=== PATIENT | female | born 1960 | race Caucasian/White ===

== ENCOUNTER 2017-01-11 05:54 | Emergency (ER) | payer MEDICARE, MEDICAID ==
[2017-01-11] MEDS ORDERED: MORPHINE SULFATE 10 MG/ML INJ IV ONE ×2 (09:34→12:17)
[2017-01-11] MEDS ORDERED: KETOROLAC TROMETHAMINE INJ/PF 30 MG/1 ML SDV IV ONE (09:34)
[2017-01-11] MEDS ORDERED: ONDANSETRON HCL INJ/PF 4 MG/2 ML SDV IV ONE (09:34)
[2017-01-11] MEDS ORDERED: NORMAL SALINE 1000 ML 1,000 ML IV ONE ×2 (09:35→12:17)
--- NOTE | 2017-01-11 09:40 | ER Document Report ---
ED Respiratory Problem - General Chief Complaint: Productive Cough Stated Complaint: DIFFICULT BREATHING, PAIN IN RIGHT SIDE Time seen by provider: 09:38 Mode of Arrival: Medic Information source: Patient Notes: 56-year-old female came in by rescue squad because of right flank pain that radiates all the way up to her neck due to coughing that has been productive and green for 2 days. Cough started one month ago. The pain is worse with movement and coughing. No dysuria. No vomiting or diarrhea. She has a history of chronic back pain and abdominal hernia. 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 TRAVEL OUTSIDE OF THE [place] IN LAST 30 DAYS: No - Related Data Allergies/Adverse Reactions: Cephalosporins Allergy (Verified 01/11/17 06:03) Hives ciprofloxacin [Ciprofloxacin] Allergy (Verified 01/11/17 06:03) clindamycin [Clindamycin] Allergy (Verified 01/11/17 06:03) Hives clindamycin HCl [From Cleocin] Allergy (Verified 01/11/17 06:03) Hives clindamycin palmitate HCl [From Cleocin] Allergy (Verified 01/11/17 06:03) Hives clindamycin phosphate [From Cleocin] Allergy (Verified 01/11/17 06:03) Hives Penicillins Allergy (Verified 01/11/17 06:03) Hives Past Medical History - General Information source: Patient - Social History Smoking Status: Never Smoker Chew tobacco use (# tins/day): No Frequency of alcohol use: Rare Drug Abuse: None Lives with: Family Family History: CAD Patient has suicidal ideation: No Patient has homicidal ideation: No - Past Medical History Cardiac Medical History: Reports: Hx Hypercholesterolemia, Hx Hypertension Pulmonary Medical History: Reports: Hx Asthma Endocrine Medical History: Reports: Hx Diabetes Mellitus Type 2 Renal/ Medical History: Denies: Hx Peritoneal Dialysis Musculoskeltal Medical History: Reports Hx Arthritis Psychiatric Medical History: Reports: Hx Depression Past Surgical History: Reports: Hx Appendectomy, Hx Cholecystectomy, Hx Hysterectomy, Hx Orthopedic Surgery - back x 15 times, Hx Tonsillectomy - Immunizations Hx Diphtheria, Pertussis, Tetanus Vaccination: No - unsure Hx Pneumococcal Vaccination: 10/22/12 Review of Systems - Review of Systems Constitutional: No symptoms reported EENT: No symptoms reported Cardiovascular: No symptoms reported Respiratory: See HPI Gastrointestinal: No symptoms reported Genitourinary: No symptoms reported Female Genitourinary: No symptoms reported Musculoskeletal: See HPI Skin: No symptoms reported Hematologic/Lymphatic: No symptoms reported Neurological/Psychological: No symptoms reported Physical Exam - Vital signs Vitals: Temp Pulse Resp BP Pulse Ox 98.4 F 101 H 20 132/82 H 99 01/11/17 06:08 01/11/17 06:08 01/11/17 06:08 01/11/17 06:08 01/11/17 06:08 Interpretation: Normal - Notes Notes: Obese and disheveled - General General appearance: Alert, Anxious - HEENT Head: Normocephalic, Atraumatic Eyes: Normal Conjunctiva: Normal Pupils: PERRL Mucous membranes: Dry Neck: Supple - Tender right trapezius - Respiratory Respiratory status: No respiratory distress Chest status: Nontender Breath sounds: Normal Chest palpation: Normal Notes: Shallow but clear respiratory - Cardiovascular Rhythm: Regular Heart sounds: Normal auscultation Murmur: No - Abdominal Inspection: Normal Distension: No distension Bowel sounds: Normal Tenderness: Nontender. No: Tender Organomegaly: No organomegaly - Back Back: Normal, Tender - 8 Thoracic and lumbar back - Extremities General upper extremity: Normal inspection, Nontender, Normal color, Normal ROM , Normal temperature General lower extremity: Normal inspection, Nontender, Normal color, Normal ROM , Normal temperature, Normal weight bearing. No: Marisol's sign - Neurological Neuro grossly intact: Yes Cognition: Normal Orientation: AAOx4 Sandy Coma Scale Eye Opening: Spontaneous [place] Coma Scale Verbal: Oriented [place] Coma Scale Motor: Obeys Commands Sandy Coma Scale Total: 15 Speech: Normal Motor strength normal: LUE, RUE, LLE, RLE Sensory: Normal - Psychological Associated symptoms: Normal affect, Normal mood - Skin Skin Temperature: Warm Skin Moisture: Dry Skin Color: Normal Skin irregularity: negative: Rash Course - Re-evaluation Re-evalutation: 01/11/17 11:16 Atelectasis or early pneumonia in the right lower lobe per radiologist. 01/11/17 12:17 pt is daibetic but not on insulin, Dr. Bah had told her that she manages her insulin glucose was 256 and I will recheck an Accu-Chek after the saline is done. 01/11/17 12:55 pt is drdamatic in her presentation of the pain, the 2nd dose of morphine did not help, "the breathing tx stirred it up", will order CTA due to the lulyin alex , she also has tachypnea, but believe it is due to pain., holding lower right naterior chest wall 01/11/17 13:[address] Toth for CTA 01/11/17 14:12 Patient got hysterical complaining of pain stating her said she would not be able to come home because she is crying and screaming. He left. I had to give her Ativan and 2 mg of Dilaudid to get her to calm in order to get CT scan. She is holding her right upper quadrant although she's had a cholecystectomy I'll will add an a CT of the abdomen and pelvis due to pain 01/11/17 15:41 lct no PE, rll pneumonia with effusion, abd ct diverticula that are not inflamed and fatty liver. 01/11/17 15:[address] bah so she can f/u tomorrow with him - Vital Signs Vital signs: Temp Pulse Resp BP Pulse Ox 97.9 F 96 20 129/82 H 95 01/11/17 15:39 01/11/17 15:39 01/11/17 15:39 01/11/17 15:39 01/11/17 15:39 - Laboratory Result Diagrams: 01/11/17 11:00 01/11/17 11:00 Laboratory results interpreted by me: 01/11/17 01/11/17 01/11/17 11:00 11:00 12:02 WBC 13.1 H RDW 14.4 H Absolute Neutrophils 9.1 H Chloride 97 L Glucose 268 H POC Glucose Total Bilirubin 1.7 H Direct Bilirubin 0.5 H Urine Protein 100 H Urine Glucose (UA) >=500 H Urine Ketones TRACE H Ur Leukocyte Esterase MODERATE H 01/11/17 01/11/17 12:31 14:41 WBC RDW Absolute Neutrophils Chloride Glucose POC Glucose 281 H 263 H Total Bilirubin Direct Bilirubin Urine Protein Urine Glucose (UA) Urine Ketones Ur Leukocyte Esterase Discharge - Discharge Clinical Impression: right lower pneumonia, urinary tract infection, uncontrolled diabetes, hyperglycemia, Anxiety Condition: Good Disposition: HOME, SELF-CARE Instructions: Pneumonia ([facility]), Azithromycin ([facility]), Urinary Tract Infection ([facility] ), Trimethoprim-Sulfa ([facility]), Inhaled Bronchodilators ([facility]) Additional Instructions: drink plenty of fwater daily take your jeneuvia when you get home Return to the emergency room if worse see dr. bah tomorrow for recheck use the albuterol MDI with the aerochamber 2 puffs every 3 hours for cough Please complete the patient satisfaction survey if you get one, and return it.. If you do not receive a survey, then you can go to the [facility] website, [email or web address] and place your comments about your very good care. Thank you very much. It was a pleasure being your medical provider today. Prescriptions: Azithromycin [Zithromax] 250 mg PO DAILY #4 tablet Sulfamethoxazole/Trimethoprim [Septra-Ds 800-160 mg Tablet] 1 tab PO BID #14 tablet Referrals: JC BAH MD [Primary Care Provider] - Follow up tomorrow
[2017-01-11 11:12] LABS: ABSOLUTE BASOPHILS # (AUTO) 0.1 10^3/uL (0.0-0.2); ABSOLUTE EOSINOPHILS # (AUTO) 0.2 10^3/uL (0.0-0.6); ABSOLUTE LYMPHOCYTES (AUTO) 2.7 10^3/uL (0.5-4.7); ABSOLUTE NEUT (AUTO) 9.1 10^3/uL (1.7-8.2); BASOPHILS % (AUTO) 0.7 % (0-2); EOSINOPHILS % (AUTO) 1.5 % (0-6); HEMATOCRIT 36.4 % (36.0-47.0); HEMOGLOBIN 12.2 g/dL (12.0-15.5); HGB HCT DIFFERENCE 0.2; LYMPHOCYTES % (AUTO) 20.3 % (13-45); MEAN CORPUSCULAR HEMOGLOBIN 28.4 pg (27.0-33.4); MEAN CORPUSCULAR HGB CONC 33.5 g/dL (32.0-36.0); MEAN CORPUSCULAR VOLUME 85 fl (80-97); MONOCYTES % (AUTO) 7.7 % (3-13); RED BLOOD COUNT 4.29 10^6/uL (3.72-5.28); RED CELL DISTRIBUTION WIDTH 14.4 % (11.5-14.0); SEGMENTED NEUTROPHILS % (AUTO) 69.8 % (42-78); WHITE BLOOD COUNT 13.1 10^3/uL (4.0-10.5)
[2017-01-11] MEDS ORDERED: AZITHROMYCIN 250 MG TABLET PO ONE (11:15)
[2017-01-11 11:31] LABS: ALANINE AMINOTRANSFERASE 30 U/L (9-52); ALBUMIN 3.7 g/dL (3.5-5.0); ALKALINE PHOSPHATASE 104 U/L (38-126); ANION GAP 17 (5-19); ASPARTATE AMINO TRANSFERASE 15 U/L (14-36); BILIRUBIN,DIRECT 0.5 mg/dL (0.0-0.4); BILIRUBIN,TOTAL 1.7 mg/dL (0.2-1.3); BLOOD UREA NITROGEN 13 mg/dL (7-20); CALCIUM 9.5 mg/dL (8.4-10.2); CARBON DIOXIDE 26 mmol/L (22-30); CHLORIDE 97 mmol/L (98-107); CREATININE RESULT 0.78 mg/dL (0.52-1.25); GLUCOSE 268 mg/dL (75-110); POTASSIUM 3.9 mmol/L (3.6-5.0); SODIUM 140.3 mmol/L (137-145); TOTAL PROTEIN 7.3 g/dL (6.3-8.2)
[2017-01-11] MEDS ORDERED: IPRATROPIUM/ALBUTEROL 0.5-2.5 MG/3 ML AMPUL NEB ONE (12:12)
[2017-01-11 12:25] LABS: APPEARANCE,URINE CLOUDY; BILIRUBIN,URINE NEGATIVE (NEGATIVE); GLUCOSE, URINE >=500 mg/dL (NEGATIVE); KETONES,URINE TRACE mg/dL (NEGATIVE); LEUKOCYTE ESTERASE,URINE MODERATE (NEGATIVE); NITRITE,URINE NEGATIVE (NEGATIVE); PROTEIN,URINE 100 mg/dL (NEGATIVE); UROBILINOGEN,URINE NEGATIVE mg/dL (<2.0)
[2017-01-11] MEDS ORDERED: HYDROMORPHONE HCL INJ/PF 2 MG/ML AMPULE IV ONE ×2 (12:56→14:11)
[2017-01-11] MEDS ORDERED: LORAZEPAM INJ 2 MG/1 ML VIAL ONE (14:01)
[2017-01-11] MEDS ORDERED: HYDROMORPHONE HCL INJ/PF 2 MG/ML AMPULE ONE (14:02)
[2017-01-11] MEDS ORDERED: LORAZEPAM INJ 2 MG/1 ML VIAL IV ONE (14:11)
[2017-01-11] MEDS ORDERED: SULFAMETHOXAZOLE/TRIMETHOPRIM 800-160 MG TABLET PO ONE (15:24)
[2017-01-11] MEDS ORDERED: ALBUTEROL SULFATE HFA (90 MCG/PUFF) 8 GM MDI (1 MDI/ER DISP) IH PRN (15:38)
[2017-01-11 15:40] VITALS: BP 129/82
== END 2017-01-11 16:00 | disposition home or self-care (01) ==
LOC: ER 05:54
DX: J18.9 Pneumonia, unspecified organism (principal); N39.0 Urinary tract infection, site not specified; E11.65 Type 2 diabetes mellitus with hyperglycemia; F41.9 Anxiety disorder, unspecified; R06.82 Tachypnea, not elsewhere classified; R10.9 Unspecified abdominal pain; R05 Cough; K76.0 Fatty (change of) liver, not elsewhere classified; K57.30 Diverticulosis of large intestine without perforation or abscess without bleeding; I10 Essential (primary) hypertension; J45.909 Unspecified asthma, uncomplicated; E66.9 Obesity, unspecified; Z68.39 Body mass index [BMI] 39.0-39.9, adult; Z88.1 Allergy status to other antibiotic agents; Z88.0 Allergy status to penicillin; Z90.49 Acquired absence of other specified parts of digestive tract; Z90.710 Acquired absence of both cervix and uterus
CPT/HCPCS: 96376; 94640; 99284; 96361; 96374; 96375; 36415; 87086; 82962; 85025; 87088; 80053; 81001; 87186; 71020; 71275; 74177; A9270 ×3; J1885; J2270; J1170; J2060; J2405; J7030; J3490; J7620

== ENCOUNTER 2017-01-14 01:10 | Inpatient (IN) | payer MEDICARE, MEDICAID ==
--- NOTE | 2017-01-14 02:18 | ER Document Report ---
ED General - General Chief Complaint: Altered Mental Status Stated Complaint: POSSIBLE ALTERED MENTAL STATUS Mode of Arrival: Ambulatory Information source: Patient, Relative Notes: This is a 56-year-old female who presents for possible confusion. Of note she was seen in the ER 3 days ago and diagnosed with a right lower lobe pneumonia. She states she has been compliant with her outpatient antibiotics and that her cough has improved. She has had no fevers or chills. However she states that yesterday her family found her asleep on the floor and she thinks she might have fallen down. Tonight she states that she's been talking fast and has been a little bit confused although right now she states that she is feeling fine. She continues to have the right-sided pleuritic pain when she coughs which she has had since being diagnosed with the right lower lobe pneumonia 3 days ago. TRAVEL OUTSIDE OF THE [place] IN LAST 30 DAYS: No - Related Data Allergies/Adverse Reactions: Cephalosporins Allergy (Verified 01/11/17 06:03) Hives ciprofloxacin [Ciprofloxacin] Allergy (Verified 01/11/17 06:03) clindamycin [Clindamycin] Allergy (Verified 01/11/17 06:03) Hives clindamycin HCl [From Cleocin] Allergy (Verified 01/11/17 06:03) Hives clindamycin palmitate HCl [From Cleocin] Allergy (Verified 01/11/17 06:03) Hives clindamycin phosphate [From Cleocin] Allergy (Verified 01/11/17 06:03) Hives Penicillins Allergy (Verified 01/11/17 06:03) Hives Past Medical History - General Information source: Patient, [facility] Records - Social History Smoking Status: Never Smoker Chew tobacco use (# tins/day): No Frequency of alcohol use: None Drug Abuse: None Family History: CAD Patient has suicidal ideation: No Patient has homicidal ideation: No - Past Medical History Cardiac Medical History: Reports: Hx Hypercholesterolemia, Hx Hypertension Pulmonary Medical History: Reports: Hx Asthma Endocrine Medical History: Reports: Hx Diabetes Mellitus Type 2 Renal/ Medical History: Denies: Hx Peritoneal Dialysis Musculoskeltal Medical History: Reports Hx Arthritis Psychiatric Medical History: Reports: Hx Depression Past Surgical History: Reports: Hx Appendectomy, Hx Cholecystectomy, Hx Hysterectomy, Hx Orthopedic Surgery - back x 15 times, Hx Tonsillectomy - Immunizations Hx Diphtheria, Pertussis, Tetanus Vaccination: No - unsure Hx Pneumococcal Vaccination: 10/22/12 Review of Systems - Review of Systems Constitutional: denies: Chills, Fever EENT: No symptoms reported Cardiovascular: See HPI Respiratory: See HPI, Cough, Hurts to breathe. denies: Hemoptysis, Short of breath Gastrointestinal: No symptoms reported. denies: Abdominal pain, Vomiting Musculoskeletal: No symptoms reported Skin: No symptoms reported Hematologic/Lymphatic: No symptoms reported Neurological/Psychological: See HPI, Confusion. denies: Weakness, Headaches Physical Exam - Vital signs Vitals: Temp Pulse Resp BP Pulse Ox 98.3 F 119 H 18 107/59 L 92 01/14/17 01:20 01/14/17 01:20 01/14/17 01:20 01/14/17 01:20 01/14/17 01:20 - Notes Notes: PHYSICAL EXAMINATION: GENERAL: Well-appearing, obese adult female who is speaking very quickly and in no acute distress. HEAD: Atraumatic, normocephalic. EYES: Pupils equal round and reactive to light, extraocular movements intact, sclera anicteric, conjunctiva are normal. ENT: nares patent, oropharynx clear without exudates. Moist mucous membranes. NECK: Normal range of motion, supple without lymphadenopathy LUNGS: decreased breath sounds R base. No wheezes, rales, or rhonchi HEART: Regular rate and rhythm without murmurs ABDOMEN: Soft, nontender, normoactive bowel sounds. No guarding, no rebound. No masses appreciated. EXTREMITIES: Normal range of motion, no edema NEUROLOGICAL: Alert and oriented 4. Cranial nerves grossly intact. Normal speech. Motor strength +5/5 bilateral upper and lower extremities. Sensation intact. PSYCH: Normal mood, somewhat anxious affect SKIN: Warm, Dry, normal turgor, no rashes or lesions noted. Course - Re-evaluation Re-evalutation: 01/14/17 05:02 Patient's chest x-ray demonstrates significant worsening of her right-sided pneumonia as compared to 3 days ago. Also she is in acute renal failure. Patient is being treated with IV antibiotics and will be admitted to the hospitalist, Dr. Acosta, this morning. - Vital Signs Vital signs: Temp Pulse Resp BP Pulse Ox 98.3 F 119 H 24 H 101/83 90 L 01/14/17 01:20 01/14/17 01:20 01/14/17 03:01 01/14/17 03:01 01/14/17 03:21 - Laboratory Result Diagrams: 01/14/17 02:35 01/14/17 02:35 Laboratory results interpreted by me: 01/14/17 01/14/17 01/14/17 02:35 02:35 02:35 WBC 16.2 H Hgb 10.7 L Hct 32.2 L RDW 14.5 H Absolute Neutrophils 11.6 H Sodium 134.1 L Chloride 91 L BUN 28 H Creatinine 2.60 H Est GFR ( Amer) 23 L Est GFR (Non-Af Amer) 19 L Glucose 230 H Lactic Acid 2.7 H Direct Bilirubin 0.7 H Alkaline Phosphatase 133 H Creatine Kinase 225 H Albumin 3.2 L Urine Protein Urine Glucose (UA) Urine Blood Ur Leukocyte Esterase 01/14/17 03:50 WBC Hgb Hct RDW Absolute Neutrophils Sodium Chloride BUN Creatinine Est GFR ( Amer) Est GFR (Non-Af Amer) Glucose Lactic Acid Direct Bilirubin Alkaline Phosphatase Creatine Kinase Albumin Urine Protein 30 H Urine Glucose (UA) 150 H Urine Blood SMALL H Ur Leukocyte Esterase SMALL H Discharge - Discharge Clinical Impression: Right lower lobe pneumonia Qualifiers: Pneumonia type: due to unspecified organism Qualified Code(s): J18.1 - Lobar pneumonia, unspecified organism Acute renal failure (ARF) Qualifiers: Acute renal failure type: unspecified Qualified Code(s): N17.9 - Acute kidney failure, unspecified UTI (urinary tract infection) Qualifiers: Urinary tract infection type: site unspecified Hematuria presence: without hematuria Qualified Code(s): N39.0 - Urinary tract infection, site not specified Condition: Fair Admitting Provider: Hospitalist - Dr. Acosta Unit Admitted: [facility]
[2017-01-14] MEDS ORDERED: NORMAL SALINE 1000 ML 1,000 ML IV ONE (02:20)
[2017-01-14 02:51] LABS: VENOUS BLOOD BASE EXCESS 1.3 mmol/L; VENOUS BLOOD HCO3 28.9 mmol/L (20-32); VENOUS BLOOD PCO2 58.9 mmHg (35-63); VENOUS BLOOD PH 7.31 (7.30-7.42)
[2017-01-14 02:52] LABS: ABSOLUTE BASOPHILS # (AUTO) 0.1 10^3/uL (0.0-0.2); ABSOLUTE EOSINOPHILS # (AUTO) 0.5 10^3/uL (0.0-0.6); ABSOLUTE LYMPHOCYTES (AUTO) 2.8 10^3/uL (0.5-4.7); ABSOLUTE MONOCYTES (AUTO) 1.2 10^3/uL (0.1-1.4); ABSOLUTE NEUT (AUTO) 11.6 10^3/uL (1.7-8.2); BASOPHILS % (AUTO) 0.5 % (0-2); HEMATOCRIT 32.2 % (36.0-47.0); HEMOGLOBIN 10.7 g/dL (12.0-15.5); HGB HCT DIFFERENCE -0.1; LYMPHOCYTES % (AUTO) 17.3 % (13-45); MEAN CORPUSCULAR HEMOGLOBIN 28.2 pg (27.0-33.4); MEAN CORPUSCULAR HGB CONC 33.2 g/dL (32.0-36.0); MEAN CORPUSCULAR VOLUME 85 fl (80-97); MONOCYTES % (AUTO) 7.1 % (3-13); RED BLOOD COUNT 3.78 10^6/uL (3.72-5.28); RED CELL DISTRIBUTION WIDTH 14.5 % (11.5-14.0); SEGMENTED NEUTROPHILS % (AUTO) 72.1 % (42-78); WHITE BLOOD COUNT 16.2 10^3/uL (4.0-10.5)
[2017-01-14 03:04] LABS: ALANINE AMINOTRANSFERASE 19 U/L (9-52); ALBUMIN 3.2 g/dL (3.5-5.0); ALKALINE PHOSPHATASE 133 U/L (38-126); ANION GAP 17 (5-19); ASPARTATE AMINO TRANSFERASE 19 U/L (14-36); BILIRUBIN,DIRECT 0.7 mg/dL (0.0-0.4); BLOOD UREA NITROGEN 28 mg/dL (7-20); CALCIUM 8.8 mg/dL (8.4-10.2); CARBON DIOXIDE 26 mmol/L (22-30); CHLORIDE 91 mmol/L (98-107); CREATINE KINASE 225 U/L (30-135); GLUCOSE 230 mg/dL (75-110); POTASSIUM 4.1 mmol/L (3.6-5.0); SODIUM 134.1 mmol/L (137-145); TOTAL PROTEIN 6.5 g/dL (6.3-8.2)
[2017-01-14 03:06] LABS: ALCOHOL < 10 mg/dL (NONE DETECTED)
[2017-01-14] MEDS ORDERED: LEVOFLOXACIN 750 MG/D5W RTU 150 ML IV ONE (03:20)
[2017-01-14] MEDS ORDERED: VANCOMYCIN HCL INJ 1000 MG VIAL IV ONE (03:32)
[2017-01-14 04:17] LABS: APPEARANCE,URINE CLOUDY; BILIRUBIN,URINE NEGATIVE (NEGATIVE); GLUCOSE, URINE 150 mg/dL (NEGATIVE); KETONES,URINE NEGATIVE (NEGATIVE); LEUKOCYTE ESTERASE,URINE SMALL (NEGATIVE); NITRITE,URINE NEGATIVE (NEGATIVE); PROTEIN,URINE 30 mg/dL (NEGATIVE); URINE SPECIFIC GRAVITY 1.013; UROBILINOGEN,URINE NEGATIVE mg/dL (<2.0)
[2017-01-14] MEDS ORDERED: DEXTROSE 40% GEL 15 GM TUBE PO PRN ×2 (04:54)
[2017-01-14] MEDS ORDERED: DEXTROSE 50%-WATER 25 GM/50 ML DISP.SYRIN IV PRN ×2 (04:54)
[2017-01-14] MEDS ORDERED: GLUCAGON,HUMAN RECOMB 1 MG INJ IM PRN (04:54)
[2017-01-14] MEDS ORDERED: GUAIFENESIN SYRP 200 MG/10 ML UDC PO PRN (04:55)
[2017-01-14 04:57] LABS: ADD ON TESTING BLD IN LAB ACKNOWLEDGE
[2017-01-14] MEDS ORDERED: VANCOMYCIN HCL 0 MG in DEXTROSE 5%-WATER 250 ML IV NR (05:00)
[2017-01-14] MEDS ORDERED: PHARMACY COMMUNICATION ORDER MC NR ×2 (05:00→13:00)
[2017-01-14 05:06] LABS: MAGNESIUM 1.9 mg/dL (1.6-2.3)
--- NOTE | 2017-01-14 05:07 | PDOC H&P ---
History of Present Illness Admission Date/PCP: 01/14/17 04:15 JC BAH MD Patient complains of: altered mental status History of Present Illness: ARIANNA DESOUZA is a 56 year old Caucasion female, with underlying chronic back pain, chronic mild anxiety and depression, without suicidal or homicidal ideation, hypertension, type II diabetes mellitus, easy bruising, and frequent urinary tract infections, but without known chronic kidney disease or chronic pulmonary disease, who presents to the emergency room for the second time in approximate 4 days, this time for evaluation of above complaint. Was seen on the and diagnosed with combination urinary tract infection and right sided pneumonia. Discharged on Z-Kostas and Bactrim. States she's been taking this as prescribed. She's had no fever or chills. However, family found her asleep on the floor on the , and noted her to be somewhat confused, along with talking faster than usual. She denies head trauma. Thinks she just simply slumped to the floor. Dry cough, which causes prominent chest wall pain. Otherwise, no chest pain. She's had some mild dysuria. No diarrhea. No tobacco use. Granddaughter has had a recent cold. She is up-to-date with flu vaccination, but doesn't think she's had her Pneumovax. States she frequently gets pneumonia with an upper respiratory tract infection "if not treated right away." No prior intubation for respiratory difficulty. Patient has been discussed with emergency room physician who evaluated the patient. . Laboratory results are listed in [employer] and are reviewed, including urine culture result from the . X-ray summary results are listed below, with full report(s) reviewed. . EKG reviewed. And compared to a tracing from November 10 of this year. Social history/personal habits: . 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 disabled due to chronic back pain; states she' s had "15" back surgeries. No use of tobacco alcohol or illicit drugs. Allergies/adverse reactions NKDA. Home medications Home medications initially autopopulated into [facility] may not accurately reflect patient's true medications, dosages, and/or frequencies. Unfortunately, patient uncertain of medications/dosages/frequencies. REVIEW OF SYSTEMS: Constitutional: No fever or chills. Eyes: Wears glasses. ENT: No swallowing problems or complaints. Partial hearing loss. Pulmonary: See history and present illness. Cardiovascular: See history and present illness. Gastrointestinal: No current complaints, including nausea or vomiting. Skin: No current complaints, including rashes. Hematologic: Easy bruising. Neurologic: Chronic numbness and tingling of her feet, due to diabetic peripheral neuropathy Musculoskeletal: Chronic back pain Joint pain from arthritis. Psychiatric: Mild Anxiety depression; denies suicidal or homicidal ideation. Endocrine: No current complaints, including polyuria. Genitourinary: See history and present illness. 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 5 feet 7 inches tall. 113 kg. BMI 39 kg/m. Temperature 98.3. Blood pressure 116/91. 93% saturation on 2 L oxygen per nasal cannula. Respirations are 21 and unlabored. Obese somewhat chronically ill-appearing female who nevertheless appears approximately her stated age. Appears not to feel very well. Somewhat anxious, although no riki agitation. Pleasant awake alert and cooperative. Skin is warm and dry. No grossly obvious evidence of rash in areas of skin examined. No subcutaneous nodules palpated. ENT: Hearing grossly normal to normal conversation. Tongue midline on protrusion pink and slightly tacky. Palpation of cranium fails to reveal any obvious tenderness. Eyes: No scleral icterus. Pupils equal and reactive to light at 4 mm. [place] conjunctivae. No raccoon eyes Neck is supple and nontender to gentle active range of motion and palpation. Midline trachea. No palpable thyroid nodule mass enlargement or tenderness. Lymphatic: No palpable cervical or clavicular nodes. Neck and lymphatic exams limited by patient body habitus. Psychiatric: Reasonable insight into acute and chronic medical issues. Oriented to time location and why here. Lungs: Auscultation reveals clear breath sounds bilaterally. No use of accessory respiratory muscles. Perhaps slightly decreased breath sounds, right lower chest. Cardiovascular: Heart regular rate and rhythm, without gallop murmur or rub. No carotid or abdominal aortic bruits. No ankle or pedal edema. palpable dorsalis pedis pulses. Abdomen: soft, obese, nontender with positive bowel sounds. Unable to adequately evaluate abdomen for masses or organomegaly due to body habitus. Extremities: Feet are warm and dry. No calf tenderness to compression. No grossly obvious visual evidence of calf swelling. Gentle manipulation of lower extremities fails to reveal any obvious evidence of injury or instability to knees hips or ankles. Neurologic: Moves upper extremities grossly normally. Patellar reflexes absent. Absent Babinski. Light touch decreased at feet, a chronic finding according to patient. Dorsiflexion and plantarflexion of feet 5 / 5 and symmetric. Past Medical History Cardiac Medical History: Reports: Hypertension Denies: Congestive Heart Failure, DVT, Myocardial Infarction, Hyperlipidema, Pulmonary Embolism Pulmonary Medical History: Reports: Sleep Apnea - Possible sleep apnea, but no formal testing as of yet. Denies: Asthma, Chronic Obstructive Pulmonary Disease (COPD) EENT Medical History: Reports: Eyes - Wears glasses, Ears - Partial hearing loss Denies: Throat Neurological Medical History: Reports: Other - Chronic numbness and tingling of her feet secondary to diabetic neuropathy Denies: Hemorrhagic CVA, Ischemic CVA, Seizures Endocrine Medical History: Reports: Diabetes Mellitus Type 2 Denies: Diabetes Mellitus Type 1, Hyperthyroidism, Hypothyroidism Renal/ Medical History: Reports: Chronic Kidney Disease - Decreased kidney function according to labs, 2013 through early 2015., Other - Frequent urinary tract infections. GI Medical History: Denies: Cirrhosis, Gastroesophageal Reflux Disease, Hepatitis, Peptic Ulcer Disease Musculoskeltal Medical History: Reports: Arthritis, Other - Chronic back pain Skin Medical History: Reports: None Psychiatric Medical History: Reports: Depression, General Anxiety Disorder Denies: Alcohol Dependency, Substance Abuse, Tobacco Dependency Hematology: Reports: Other - Easy bruising Denies: Anemia Infectious Medical History: Denies: Clostridium Difficile, Hepatitis B, Hepatitis C, Methicillin- Resistant Staph Aureus Past Surgical History Past Surgical History: Reports: Appendectomy, Cholecystectomy, Hysterectomy, Orthopedic Surgery - back x 15 times, Tonsillectomy Social History Information Source: Patient, Emergency Med Personnel, [facility] Records Lives with: Spouse/Significant other Smoking Status: Never Smoker Frequency of Alcohol Use: None Drugs: None - Advance Directive Resuscitation Status: Full Code Surrogate healthcare decision maker:: Children Family History Family History: CAD, Hypertension, Other - Parkinson's Parental Family History Reviewed: Yes Children Family History Reviewed: Yes Sibling(s) Family History Reviewed.: Yes Medication/Allergy Home Medications: Buprenorphine [Butrans] 1 patch TD MO 01/14/17 Diazepam [Valium 5 mg Tablet] 5 mg PO BID PRN 01/14/17 Duloxetine HCl [Cymbalta] 60 mg PO DAILY 01/14/17 Furosemide [Lasix] 20 mg PO PRN PRN 01/14/17 Lubiprostone [Amitiza 24 Mcg Capsule] 24 mcg PO BID 01/14/17 RX: Enalapril/Hydrochlorothiazide [Vaseretic 10-25 mg Tablet] 1 tab PO DAILY RX: Gabapentin 300 mg PO TID 01/14/17 RX: Naproxen 500 mg PO Q12 PRN 01/14/17 RX: Omeprazole 20 mg PO DAILY 01/14/17 Ropinirole HCl [Requip Xl] 2 mg PO BID 01/14/17 Sitagliptin Phosphate [Januvia] 100 mg PO DAILY 01/14/17 Tizanidine HCl [Zanaflex 4 mg Tablet] 4 mg PO TIDP PRN 01/14/17 Zolpidem Tartrate [Ambien] 10 mg PO QHS 01/14/17 Allergies/Adverse Reactions: Cephalosporins Allergy (Verified 01/11/17 06:03) Hives ciprofloxacin [Ciprofloxacin] Allergy (Verified 01/11/17 06:03) clindamycin [Clindamycin] Allergy (Verified 01/11/17 06:03) Hives Penicillins Allergy (Verified 01/11/17 06:03) Hives Physical Exam Vital Signs: Temp Pulse Resp BP Pulse Ox 98.3 F 119 H 24 H 101/83 90 L 01/14/17 01:20 01/14/17 01:20 01/14/17 03:01 01/14/17 03:01 01/14/17 03:21 Results Impressions: Chest X-Ray 01/14/17 01:58 IMPRESSION: Interval increase in the right-sided pleural effusion and airspace opacity in the right lung, may represent worsening atelectasis or pneumonia. Mild left basilar atelectasis. Assessment & Plan - Diagnosis (1) Acute encephalopathy Is this a current diagnosis for this admission?: YesPlan: Likely multifactorial, but primarily due to underlying infection. Should clear with time and treatment. (2) Acute renal failure (ARF) Qualifiers: Acute renal failure type: unspecified Qualified Code(s): N17.9 - Acute kidney failure, unspecified Is this a current diagnosis for this admission?: YesPlan: Likely prerenal, with patient describing little by mouth intake over the last 2- 3 days. Renal ultrasound. IV fluid. Serial chemistry. (3) Pneumonia involving right lung Qualifiers: Pneumonia type: due to unspecified organism Lung location: unspecified part of lung Qualified Code(s): J18.9 - Pneumonia, unspecified organism Is this a current diagnosis for this admission?: YesPlan: Patient will be admitted under pneumonia protocol. Incentive spirometry twice a day. PRN DuoNeb's. Antibiotics will consist of intravenous Zithromax, vancomycin, and aztreonam. Pharmacy to assist with dosing.. I strongly encouraged patient to notify staff should patient feel shortness of breath is worsening. Patient is a full code. I have strongly encouraged patient not to get out of bed without notifying staff , to avoid a fall with injury. Knee high SCDs for DVT prophylaxis, along with subcutaneous heparin. Impression and plans were discussed with patient, who concurs. Time spent in evaluation and management of patient: 68 minutes. (4) UTI (urinary tract infection) Qualifiers: Urinary tract infection type: site unspecified Hematuria presence: without hematuria Qualified Code(s): N39.0 - Urinary tract infection, site not specified Is this a current diagnosis for this admission?: YesPlan: Culture from 01/11 noted; organism pansensitive. (5) Chronic back pain Qualifiers: Back pain location: back pain in unspecified location Back pain laterality: unspecified Qualified Code(s): M54.9 - Dorsalgia, unspecified ; G89.29 - Other chronic pain Is this a current diagnosis for this admission?: YesPlan: When necessary pain medication. (6) Diabetes mellitus type 2 in obese Is this a current diagnosis for this admission?: YesPlan: Ice chips only present; advance diet as tolerated. Accu-Cheks with appropriate sliding scale coverage.Resume home medications as appropriate once these have been determined and reviewed. (7) HTN (hypertension) Qualifiers: Hypertension type: essential hypertension Qualified Code(s): I10 - Essential (primary) hypertension Is this a current diagnosis for this admission?: YesPlan: Resume home medications as appropriate once these have been determined and reviewed.
[2017-01-14] MEDS ORDERED: OXYCODONE HCL IR 5 MG TABLET PO PRN ×3 (05:24→12:50)
[2017-01-14] MEDS ORDERED: AZTREONAM INJ 1 GM VIAL IV PRN (05:25)
[2017-01-14 05:34] LABS: URINE BARBITURATES SCREEN NEGATIVE; URINE METHADONE SCREEN NEGATIVE; URINE OPIATES LOW UNCONFIRMED POSITIVE; URINE PHENCYCLIDINE SCREEN NEGATIVE
[2017-01-14] MEDS: NORMAL SALINE 1000 ML 1,000 ML IV PRN ×2 (05:54→10:05)
[2017-01-14] MEDS ORDERED: AZTREONAM 1 GM in DEXTROSE 5%-WATER 50 ML IV SCH (06:00)
[2017-01-14] MEDS ORDERED: HEPARIN SOD (PORCINE) 5,000 UNIT/ML 1 ML SYRINGE SUBCUT SCH (06:00)
[2017-01-14 07:13] LABS: ABSOLUTE BASOPHILS # (AUTO) 0.1 10^3/uL (0.0-0.2); ABSOLUTE EOSINOPHILS # (AUTO) 0.6 10^3/uL (0.0-0.6); ABSOLUTE LYMPHOCYTES (AUTO) 2.2 10^3/uL (0.5-4.7); ABSOLUTE MONOCYTES (AUTO) 1.1 10^3/uL (0.1-1.4); ABSOLUTE NEUT (AUTO) 11.3 10^3/uL (1.7-8.2); BASOPHILS % (AUTO) 0.5 % (0-2); EOSINOPHILS % (AUTO) 3.8 % (0-6); HEMATOCRIT 29.4 % (36.0-47.0); HEMOGLOBIN 9.7 g/dL (12.0-15.5); HGB HCT DIFFERENCE -0.3; LYMPHOCYTES % (AUTO) 14.5 % (13-45); MEAN CORPUSCULAR HEMOGLOBIN 28.1 pg (27.0-33.4); MEAN CORPUSCULAR HGB CONC 32.9 g/dL (32.0-36.0); MEAN CORPUSCULAR VOLUME 85 fl (80-97); MONOCYTES % (AUTO) 7.3 % (3-13); RED BLOOD COUNT 3.44 10^6/uL (3.72-5.28); RED CELL DISTRIBUTION WIDTH 14.4 % (11.5-14.0); SEGMENTED NEUTROPHILS % (AUTO) 73.9 % (42-78); WHITE BLOOD COUNT 15.3 10^3/uL (4.0-10.5)
[2017-01-14 07:14] LABS: VENOUS BLOOD BASE EXCESS -0.3 mmol/L; VENOUS BLOOD HCO3 25.6 mmol/L (20-32); VENOUS BLOOD PCO2 47.7 mmHg (35-63); VENOUS BLOOD PH 7.35 (7.30-7.42)
[2017-01-14 08:31] LABS: ANION GAP 14 (5-19); BLOOD UREA NITROGEN 26 mg/dL (7-20); CALCIUM 8.3 mg/dL (8.4-10.2); CARBON DIOXIDE 25 mmol/L (22-30); CHLORIDE 95 mmol/L (98-107); CREATININE RESULT 2.14 mg/dL (0.52-1.25); GLUCOSE 227 mg/dL (75-110); POTASSIUM 3.7 mmol/L (3.6-5.0); SODIUM 134.1 mmol/L (137-145)
--- NOTE | 2017-01-14 09:01 | EKG REPORT ---
SEVERITY:- ABNORMAL ECG - SINUS TACHYCARDIA NONSPECIFIC ST-T CHANGES- INFERIOR LEADS : Confirmed by: Serg Ward MD 14-Jan-2017 09:00:48
[2017-01-14] MEDS: AZITHROMYCIN 500 MG in DEXTROSE 5%-WATER 250 ML IV SCH (09:53)
[2017-01-14] MEDS: LIDOCAINE 5% (700 MG) TRANSDERMAL ADH..PATCH TP SCH (09:54)
[2017-01-14] MEDS: GUAIFENESIN 600 MG TABLET.SA PO SCH ×2 (09:55→20:16)
[2017-01-14] MEDS ORDERED: NORMAL SALINE 1000 ML 2,000 ML IV ONE (11:09)
[2017-01-14] MEDS: AZTREONAM 1.5 GM in DEXTROSE 5%-WATER 100 ML IV SCH ×2 (14:08→21:28)
[2017-01-14] MEDS: INSULIN LISPRO 100 UNIT/ML 3 ML VIAL SUBCUT PRN ×2 (14:09→16:42)
[2017-01-14] MEDS: IPRATROPIUM/ALBUTEROL 0.5-2.5 MG/3 ML AMPUL NEB PRN ×2 (16:43→20:35)
[2017-01-14] MEDS: ACETYLCYSTEINE 20% SOLN 800 MG/4 ML VIAL.NEB NEB SCH (20:34)
--- NOTE | 2017-01-14 20:40 | PDOC PROGRESS REPORT ---
Subjective Progress Note for:: 01/14/17 Subjective:: Patient is in the presence of her daughter and [id number]: I visited her. Patient is quite lethargic when I see her and has a difficult time staying awake. Patient does admit to constipation and does complain of her normal back pain. Patient denies chest pain, shortness of breath, abdominal pain, nausea, vomiting , fevers, chills, diarrhea, headache, new onset weakness. Physical Exam Vital Signs: Temp Pulse Resp BP Pulse Ox 98.6 F 104 H 24 H 112/70 94 01/14/17 20:00 01/14/17 16:43 01/14/17 18:00 01/14/17 16:00 01/14/17 18:00 Intake & Output 01/13/17 01/14/17 01/15/17 06:59 06:59 06:59 Intake Total 2257 Output Total 4825 Balance -2568 Weight 117.2 kg Exam: General: Lethargic but arousable, no acute respiratory distress HEENT: AT/NC, PERRL, EOMI, oropharynx is moist, pink, no scleral icterus, no conjunctival injection Neck: No JVD, trachea midline Chest: Splinting, short shallow breathing, diminished right lower lobe, rhonchi right middle CV: Regular rate and rhythm, normal S1 and S2, no murmur, rub, or gallop Abdomen: Soft, nontender to palpation, nondistended, active bowel sounds; no rebound, rigidity, or guarding Extremities: No cyanosis, clubbing or edema Neuro: Cranial nerves II through XII are grossly intact without focal deficits; lethargic but arousable Psych: Normal mood and affect Results Laboratory Results: 01/14/17 07:01 01/14/17 07:01 01/14/17 01/14/17 01/14/17 07:01 07:01 07:01 WBC 15.3 H RBC 3.44 L Hgb 9.7 L Hct 29.4 L MCV 85 MCH 28.1 MCHC 32.9 RDW 14.4 H Plt Count 254 Seg Neutrophils % 73.9 Lymphocytes % 14.5 Monocytes % 7.3 Eosinophils % 3.8 Basophils % 0.5 Absolute Neutrophils 11.3 H Absolute Lymphocytes 2.2 Absolute Monocytes 1.1 Absolute Eosinophils 0.6 Absolute Basophils 0.1 VBG pH 7.35 VBG pCO2 47.7 VBG HCO3 25.6 VBG Base Excess -0.3 Sodium Potassium Chloride Carbon Dioxide Anion Gap BUN Creatinine Est GFR ( Amer) Est GFR (Non-Af Amer) Glucose Lactic Acid 1.0 Calcium 01/14/17 07:01 WBC RBC Hgb Hct MCV MCH MCHC RDW Plt Count Seg Neutrophils % Lymphocytes % Monocytes % Eosinophils % Basophils % Absolute Neutrophils Absolute Lymphocytes Absolute Monocytes Absolute Eosinophils Absolute Basophils VBG pH VBG pCO2 VBG HCO3 VBG Base Excess Sodium 134.1 L Potassium 3.7 Chloride 95 L Carbon Dioxide 25 Anion Gap 14 BUN 26 H Creatinine 2.14 H Est GFR ( Amer) 29 L Est GFR (Non-Af Amer) 24 L Glucose 227 H Lactic Acid Calcium 8.3 L Impressions: Renal Ultrasound 01/14/17 00:00 IMPRESSION: No hydronephrosis. Chest X-Ray 01/14/17 01:58 IMPRESSION: Interval increase in the right-sided pleural effusion and airspace opacity in the right lung, may represent worsening atelectasis or pneumonia. Mild left basilar atelectasis. Assessment & Plan - Diagnosis (1) Sepsis Qualifiers: Sepsis type: sepsis due to unspecified organism Qualified Code(s): A41.9 - Sepsis, unspecified organism Is this a current diagnosis for this admission?: YesPlan: Patient currently meets sepsis criteria due to confusion, tachypnea, and leukocytosis. Patient also meets criteria for severe sepsis from her hypoxia. Concern at this time and can for gram-negative organisms. (2) Pneumonia Qualifiers: Pneumonia type: due to unspecified organism Laterality: right Lung location: lower lobe of lung Qualified Code(s): J18.1 - Lobar pneumonia, unspecified organism Is this a current diagnosis for this admission?: YesPlan: Patient currently on vancomycin, aztreonam, and azithromycin. Patient is well covered for community-acquired pneumonia. Concern at this time for gram- negative or aspiration pneumonia due to location of her pneumonia, and patient' s use of multiple sedating medications which could lead to inadvertent aspiration. We will consult speech therapy for swallow evaluation. Pending sputum culture. Aggressive pulmonary toileting. Plan for thoracocentesis to determine if patient has a parapneumonic effusion. (3) Acute encephalopathy Is this a current diagnosis for this admission?: YesPlan: This appears to be resolving. Patient with lethargy secondary to pneumonia and renal failure. (4) Acute renal failure (ARF) Qualifiers: Acute renal failure type: unspecified Qualified Code(s): N17.9 - Acute kidney failure, unspecified Is this a current diagnosis for this admission?: YesPlan: Likely multifactorial relating to probable acute on chronic, use of Lasix, enalapril/edge or thiazide, naproxen, and Bactrim in the setting of sepsis. Continue hydration. Family reports poor oral intake recently. (5) HTN (hypertension) Qualifiers: Hypertension type: essential hypertension Qualified Code(s): I10 - Essential (primary) hypertension Is this a current diagnosis for this admission?: YesPlan: Currently with blood pressure medication on hold due to renal failure and she takes enalapril/hydrochlorothiazide home. (6) UTI (urinary tract infection) Qualifiers: Urinary tract infection type: site unspecified Hematuria presence: without hematuria Qualified Code(s): N39.0 - Urinary tract infection, site not specified Is this a current diagnosis for this admission?: YesPlan: Patient with pansensitive Escherichia coli. Currently well covered. Remove [place] catheter (7) Chronic back pain Qualifiers: Back pain location: back pain in unspecified location Back pain laterality: unspecified Qualified Code(s): M54.9 - Dorsalgia, unspecified ; G89.29 - Other chronic pain Is this a current diagnosis for this admission?: YesPlan: Patient chronically on. BuTrans-patch and Valium, Requip, Zanaflex, gabapentin , and Cymbalta. We'll continue these as renal function allows. (8) Diabetes mellitus type 2 in obese Is this a current diagnosis for this admission?: YesPlan: Check hemoglobin A1c. Family reports patient has recently been taken off of metformin, which I suspect is due to renal failure and has been on Januvia alone. They report high blood glucoses at home. (9) Anemia Qualifiers: Anemia type: unspecified type Qualified Code(s): D64.9 - Anemia, unspecified Is this a current diagnosis for this admission?: YesPlan: We'll check iron studies in the morning (10) Chronic prescription opiate use Is this a current diagnosis for this admission?: YesPlan: Will permit patient to use home Butrans patch - Time Time Spent with patient: 35 or more minutes Medications reviewed and adjusted accordingly: Yes Anticipated discharge: Home
[2017-01-14] MEDS: SENNOSIDES/DOCUSATE 8.6-50 MG 1 EACH TABLET PO SCH (21:31)
[2017-01-15] MEDS: AZTREONAM 1.5 GM in DEXTROSE 5%-WATER 100 ML IV SCH ×3 (05:02→21:05)
[2017-01-15 05:11] LABS: ABSOLUTE EOSINOPHILS # (AUTO) 0.4 10^3/uL (0.0-0.6); ABSOLUTE NEUT (AUTO) 8.2 10^3/uL (1.7-8.2); BASOPHILS % (AUTO) 0.3 % (0-2); HEMATOCRIT 31.5 % (36.0-47.0); HEMOGLOBIN 10.5 g/dL (12.0-15.5); LYMPHOCYTES % (AUTO) 17.3 % (13-45); MEAN CORPUSCULAR HEMOGLOBIN 28.5 pg (27.0-33.4); MEAN CORPUSCULAR HGB CONC 33.4 g/dL (32.0-36.0); MEAN CORPUSCULAR VOLUME 85 fl (80-97); MONOCYTES % (AUTO) 8.6 % (3-13); RED BLOOD COUNT 3.69 10^6/uL (3.72-5.28); RED CELL DISTRIBUTION WIDTH 14.3 % (11.5-14.0); SEGMENTED NEUTROPHILS % (AUTO) 70.8 % (42-78); WHITE BLOOD COUNT 11.6 10^3/uL (4.0-10.5)
[2017-01-15 05:20] LABS: PROTHROMBIN TIME 15.8 SEC (11.4-15.4)
[2017-01-15 05:21] LABS: PARTIAL THROMBOPLASTIN TIME 43.8 SEC (23.5-35.8)
[2017-01-15] MEDS: VANCOMYCIN HCL 1,500 MG in DEXTROSE 5%-WATER 250 ML IV SCH (05:33)
[2017-01-15 05:37] LABS: ALBUMIN 2.9 g/dL (3.5-5.0); ANION GAP 13 (5-19); BLOOD UREA NITROGEN 14 mg/dL (7-20); CARBON DIOXIDE 28 mmol/L (22-30); CHLORIDE 99 mmol/L (98-107); CREATININE RESULT 1.25 mg/dL (0.52-1.25); GLUCOSE 150 mg/dL (75-110); POTASSIUM 4.6 mmol/L (3.6-5.0); SODIUM 139.6 mmol/L (137-145)
[2017-01-15 06:39] LABS: FOLATE 4.64 ng/mL (>2.76)
[2017-01-15] MEDS: ACETYLCYSTEINE 20% SOLN 800 MG/4 ML VIAL.NEB NEB SCH ×2 (08:49→20:26)
[2017-01-15] MEDS: IPRATROPIUM/ALBUTEROL 0.5-2.5 MG/3 ML AMPUL NEB PRN ×2 (08:50→20:26)
[2017-01-15] MEDS: DULOXETINE HCL 30 MG CAPSULE.DR PO SCH (09:49)
[2017-01-15] MEDS: GUAIFENESIN 600 MG TABLET.SA PO SCH ×2 (09:49→21:04)
[2017-01-15] MEDS: DOCUSATE SODIUM 100 MG CAPSULE PO SCH ×2 (09:49→18:24)
[2017-01-15] MEDS: FERROUS SULFATE 325 MG TABLET PO SCH ×2 (09:49→18:24)
[2017-01-15] MEDS: LIDOCAINE 5% (700 MG) TRANSDERMAL ADH..PATCH TP SCH (09:50)
[2017-01-15] MEDS: DIAZEPAM 5 MG TABLET PO PRN ×2 (09:52→18:24)
[2017-01-15] MEDS: AZITHROMYCIN 500 MG in DEXTROSE 5%-WATER 250 ML IV SCH (09:52)
[2017-01-15] MEDS ORDERED: MINERAL OIL ENEMA 133 ML PR PRN (10:15)
[2017-01-15] MEDS ORDERED: MINERAL OIL ENEMA 133 ML PR ONE (10:45)
[2017-01-15] MEDS: MULTIVITAMINS W-IRON TABLET, CHEWABLE PO SCH (11:33)
[2017-01-15] MEDS: CYANOCOBALAMIN (VITAMIN B-12) 1,000 MCG TABLET PO SCH (11:33)
[2017-01-15 14:10] LABS: FLUID TYPE PLEURAL
[2017-01-15 14:11] LABS: FLUID APPEARANCE SLIGHTLY HAZY; FLUID RBC AVERAGE 216.5; FLUID RBC DILUENT USED NONE USED; FLUID RBC DILUTION FACTOR 1; FLUID RBC SIDE 1 216; FLUID RBC SIDE 2 217; TOTAL RBC SQUARES COUNTED FLD 50
[2017-01-15] MEDS ORDERED: METHADONE HCL 1 MG/ML 30 ML BOTTLE PO SCH (19:15)
[2017-01-15] MEDS ORDERED: METHADONE HCL 10 MG TABLET PO ONE (20:00)
[2017-01-15] MEDS ORDERED: (PENDING PHARMACY ID) (Buprenorphine [Butrans] 1 PATCH) TD SCH (20:25)
[2017-01-15] MEDS: INSULIN LISPRO 100 UNIT/ML 3 ML VIAL SUBCUT PRN (20:48)
[2017-01-15] MEDS: SENNOSIDES/DOCUSATE 8.6-50 MG 1 EACH TABLET PO SCH (21:04)
[2017-01-16] MEDS: AZTREONAM 1.5 GM in DEXTROSE 5%-WATER 100 ML IV SCH ×3 (05:21→22:19)
[2017-01-16] MEDS: VANCOMYCIN HCL 1,500 MG in DEXTROSE 5%-WATER 250 ML IV SCH (06:16)
[2017-01-16] MEDS: IPRATROPIUM/ALBUTEROL 0.5-2.5 MG/3 ML AMPUL NEB PRN ×3 (08:20→19:58)
[2017-01-16] MEDS: ACETYLCYSTEINE 20% SOLN 800 MG/4 ML VIAL.NEB NEB SCH ×2 (08:20→19:57)
[2017-01-16] MEDS: INSULIN LISPRO 100 UNIT/ML 3 ML VIAL SUBCUT PRN ×2 (08:24→23:30)
[2017-01-16] MEDS: FERROUS SULFATE 325 MG TABLET PO SCH ×2 (08:26→17:37)
[2017-01-16] MEDS: DIAZEPAM 5 MG TABLET PO PRN ×2 (09:31→17:38)
[2017-01-16] MEDS: DULOXETINE HCL 30 MG CAPSULE.DR PO SCH (09:31)
[2017-01-16] MEDS: LIDOCAINE 5% (700 MG) TRANSDERMAL ADH..PATCH TP SCH (09:31)
[2017-01-16] MEDS: GUAIFENESIN 600 MG TABLET.SA PO SCH ×2 (09:32→21:19)
[2017-01-16] MEDS: MULTIVITAMINS W-IRON TABLET, CHEWABLE PO SCH (09:32)
[2017-01-16] MEDS: CYANOCOBALAMIN (VITAMIN B-12) 1,000 MCG TABLET PO SCH (09:33)
[2017-01-16] MEDS: DOCUSATE SODIUM 100 MG CAPSULE PO SCH ×2 (09:33→17:37)
[2017-01-16] MEDS: AZITHROMYCIN 500 MG in DEXTROSE 5%-WATER 250 ML IV SCH (09:33)
[2017-01-16] MEDS ORDERED: METHADONE HCL 10 MG TABLET PO SCH (10:00)
--- NOTE | 2017-01-16 12:13 | PDOC PROGRESS REPORT ---
Subjective Progress Note for:: 01/15/17 Subjective:: Patient reports that she's feeling significantly better. Patient however does appear to be confused and is tangled in her leads when I see her. Patient reports a good bowel movement today. Patient denies chest pain, shortness of breath, abdominal pain, nausea, vomiting , fevers, chills, diarrhea, constipation, headache. Physical Exam Vital Signs: Selected Entries 01/15/17 16:59 Temperature 97.8 F Pulse Rate 118 H Respiratory 16 Rate Blood Pressure 118/73 [Left Upper Arm ] O2 Sat by Pulse 97 Oximetry Oxygen Delivery Nasal Cannula Method ( includes room air) Oxygen Flow 3 Rate Exam: General: Awake alert and oriented x2, no acute respiratory distress HEENT: AT/NC, PERRL, EOMI, oropharynx is moist, pink, no scleral icterus, no conjunctival injection Neck: No JVD, trachea midline Chest: Diminished from right middle lobe down, Rales right lobe CV: Regular rate and rhythm, normal S1 and S2, no murmur, rub, or gallop Abdomen: Soft, nontender to palpation, nondistended, active bowel sounds; no rebound, rigidity, or guarding Extremities: No cyanosis, clubbing or edema Neuro: Cranial nerves II through XII are grossly intact without focal deficits; awake alert and oriented x2 Psych: Flight of ideas, giddy Results Laboratory Results: 01/15/17 04:30 01/15/17 04:30 01/15/17 01/15/17 04:30 12:53 Transferrin 148 L Fluid Type PLEURAL Fluid Source Fluid Color YELLOW Fluid Appearance SLIGHTLY HAZY Fluid Viscosity LIQUID Fluid WBC 272 Fluid RBC 1082 01/14/17 13:20 Sputum Gram Stain - Final 01/14/17 13:20 Sputum Sputum Culture - Final C.albicans/C.dubliniensis Reduced Normal [place] Impressions: Renal Ultrasound 01/14/17 00:00 IMPRESSION: No hydronephrosis. Chest X-Ray 01/15/17 00:00 IMPRESSION: No pneumothorax status post right thoracentesis. KUB X-Ray 01/15/17 00:00 IMPRESSION: Gas pattern is nonspecific. Thoracentesis Ultrasound 01/15/17 06:00 IMPRESSION: SUCCESSFUL THORACENTESIS USING ULTRASOUND GUIDANCE. Assessment & Plan - Diagnosis (1) Pleural effusion associated with pulmonary infection Is this a current diagnosis for this admission?: YesPlan: Patient has undergone ultrasound-guided thoracocentesis and reports that she feels significantly better. They were able to draw 650 mL of fluid. Pending studies at this time. Concern for empyema. Continue antibiotics. Encourage incentive spirometry (2) Sepsis Qualifiers: Sepsis type: sepsis due to unspecified organism Qualified Code(s): A41.9 - Sepsis, unspecified organism Is this a current diagnosis for this admission?: YesPlan: Patient currently meets sepsis criteria due to confusion, tachypnea, and leukocytosis. Patient also meets criteria for severe sepsis from her hypoxia. Concern at this time and can for gram-negative organisms. (3) Pneumonia Qualifiers: Pneumonia type: due to unspecified organism Laterality: right Lung location: lower lobe of lung Qualified Code(s): J18.1 - Lobar pneumonia, unspecified organism Is this a current diagnosis for this admission?: YesPlan: Patient currently on vancomycin, aztreonam, and azithromycin. Patient is well covered for community-acquired pneumonia. Concern at this time for gram- negative or aspiration pneumonia due to location of her pneumonia, and patient' s use of multiple sedating medications which could lead to inadvertent aspiration. We will consult speech therapy for swallow evaluation. Pending sputum culture. Aggressive pulmonary toileting. Plan for thoracocentesis to determine if patient has a parapneumonic effusion. (4) Acute encephalopathy Is this a current diagnosis for this admission?: YesPlan: At this time, suspect the patient's acute encephalopathy is secondary to opiate withdrawal with delirium. Will initiate patient on methadone as she does complain of neuropathic pain. Patient's family was unable to provide any butrans-patches for her. (5) Acute renal failure (ARF) Qualifiers: Acute renal failure type: unspecified Qualified Code(s): N17.9 - Acute kidney failure, unspecified Is this a current diagnosis for this admission?: YesPlan: Improved but not back to baseline. Likely multifactorial relating to probable acute on chronic, use of Lasix, enalapril/edge or thiazide, naproxen, and Bactrim in the setting of sepsis. Stop IV fluids. (6) HTN (hypertension) Qualifiers: Hypertension type: essential hypertension Qualified Code(s): I10 - Essential (primary) hypertension Is this a current diagnosis for this admission?: Yes (7) UTI (urinary tract infection) Qualifiers: Urinary tract infection type: site unspecified Hematuria presence: without hematuria Qualified Code(s): N39.0 - Urinary tract infection, site not specified Is this a current diagnosis for this admission?: YesPlan: Patient with pansensitive Escherichia coli. Currently well covered. (8) Chronic back pain Qualifiers: Back pain location: back pain in unspecified location Back pain laterality: unspecified Qualified Code(s): M54.9 - Dorsalgia, unspecified ; G89.29 - Other chronic pain Is this a current diagnosis for this admission?: Yes (9) Diabetes mellitus type 2 in obese Is this a current diagnosis for this admission?: Yes (10) Anemia Qualifiers: Anemia type: unspecified type Qualified Code(s): D64.9 - Anemia, unspecified Is this a current diagnosis for this admission?: Yes (11) Chronic prescription opiate use Is this a current diagnosis for this admission?: YesPlan: Out of Butrans patch Will initiate on methadone. - Time Time Spent with patient: 25-34 minutes Medications reviewed and adjusted accordingly: Yes Anticipated discharge: Home - Inpatient Certification Based on my medical assessment, after consideration of the patient's comorbidities, presenting symptoms, or acuity I expect that the services needed warrant INPATIENT care.: Yes I certify that my determination is in accordance with my understanding of Medicare's requirements for reasonable and necessary INPATIENT services [42 CFR 412.3e].: Yes Medical Necessity: Need for Nebulizer Therapy and Monitoring of Response, Need for IV Antibiotics Post Hospital Care: D/C [employer] Documentation
[2017-01-16] MEDS ORDERED: SITAGLIPTIN PHOSPHATE 50 MG TABLET PO ONE (13:00)
[2017-01-16] MEDS: GABAPENTIN 300 MG CAPSULE PO SCH ×2 (13:06→21:20)
[2017-01-16 13:17] LABS: HEMATOCRIT 32.1 % (36.0-47.0); HEMOGLOBIN 10.7 g/dL (12.0-15.5); MEAN CORPUSCULAR HEMOGLOBIN 28.4 pg (27.0-33.4); MEAN CORPUSCULAR HGB CONC 33.4 g/dL (32.0-36.0); MEAN CORPUSCULAR VOLUME 85 fl (80-97); RED BLOOD COUNT 3.78 10^6/uL (3.72-5.28); RED CELL DISTRIBUTION WIDTH 14.2 % (11.5-14.0); WHITE BLOOD COUNT 12.1 10^3/uL (4.0-10.5)
[2017-01-16 13:52] LABS: BASOPHILS % (MANUAL) 0 % (0-2); EOSINOPHILS % (MANUAL) 1 % (0-6); LYMPHOCYTES % (MANUAL) 14 % (13-45); TOTAL CELLS COUNTED 100
[2017-01-16 13:55] LABS: POLYCHROMASIA SLIGHT; TOXIC GRANULATION SLIGHT
[2017-01-16] MEDS ORDERED: (PENDING PHARMACY ID) (Ropinirole Hcl [Requip Xl] 2 MG) PO SCH (18:00)
[2017-01-16] MEDS: SENNOSIDES/DOCUSATE 8.6-50 MG 1 EACH TABLET PO SCH (21:20)
[2017-01-16] MEDS: ACETAMINOPHEN 325 MG TABLET PO PRN (21:20)
[2017-01-16] MEDS: TRAMADOL HCL 50 MG TABLET PO PRN (21:20)
--- NOTE | 2017-01-17 00:02 | PDOC PROGRESS REPORT ---
Subjective Progress Note for:: 01/16/17 Subjective:: Patient seen earlier on morning rounds. Patient lethargic. She reports she is quite tired. And promptly goes back to sleep she denies any complaints of pain. Physical Exam Vital Signs: Temp Pulse Resp BP Pulse Ox 100.9 F H 104 H 22 H 137/86 H 99 01/16/17 20:04 01/16/17 20:04 01/16/17 20:04 01/16/17 20:04 01/16/17 20:04 Intake & Output 01/15/17 01/16/17 01/17/17 06:59 06:59 06:59 Intake Total 3457 1477 1205 Output Total 1565 2345 1250 Balance -4408 -868 -45 Weight 117.2 kg 112.8 kg Exam: General: Lethargic, no acute respiratory distress HEENT: PERRL, oropharynx is moist, pink, no scleral icterus, no conjunctival injection Neck: No JVD, trachea midline Chest: Diminished from right middle lobe down, crackles right upper lobe CV: Regular rate and rhythm, normal S1 and S2, no murmur, rub, or gallop Abdomen: Soft, nontender to palpation, nondistended, active bowel sounds; no rebound, rigidity, or guarding Extremities: No cyanosis, clubbing or edema Results Laboratory Results: 01/16/17 12:58 01/15/17 04:30 01/15/17 01/15/17 01/15/17 04:30 12:53 12:53 WBC RBC Hgb Hct MCV MCH MCHC RDW Plt Count Seg Neutrophils % Lymphocytes % Monocytes % Eosinophils % Basophils % Absolute Neutrophils Absolute Lymphocytes Absolute Monocytes Absolute Eosinophils Absolute Basophils Transferrin 148 L Fluid Glucose Fluid Albumin 2.2 Fluid LDH 865 Fluid Amylase 01/15/17 01/15/17 01/16/17 12:53 12:53 12:58 WBC 12.1 H RBC 3.78 Hgb 10.7 L Hct 32.1 L MCV 85 MCH 28.4 MCHC 33.4 RDW 14.2 H Plt Count 300 Seg Neutrophils % Not Reportable Lymphocytes % Not Reportable Monocytes % Not Reportable Eosinophils % Not Reportable Basophils % Not Reportable Absolute Neutrophils Not Reportable Absolute Lymphocytes Not Reportable Absolute Monocytes Not Reportable Absolute Eosinophils Not Reportable Absolute Basophils Not Reportable Transferrin Fluid Glucose 106 Fluid Albumin Fluid LDH Fluid Amylase 6 01/14/17 13:20 Sputum Gram Stain - Final 01/14/17 13:20 Sputum Sputum Culture - Final C.albicans/C.dubliniensis Reduced Normal [place] Impressions: Renal Ultrasound 01/14/17 00:00 IMPRESSION: No hydronephrosis. KUB X-Ray 01/15/17 00:00 IMPRESSION: Gas pattern is nonspecific. Thoracentesis Ultrasound 01/15/17 06:00 IMPRESSION: SUCCESSFUL THORACENTESIS USING ULTRASOUND GUIDANCE. Chest X-Ray 01/16/17 00:00 IMPRESSION: Increasing right-sided pleural effusion. Assessment & Plan - Diagnosis (1) Pleural effusion associated with pulmonary infection Is this a current diagnosis for this admission?: YesPlan: Patient with exudative effusion. Will repeat this and likely have chest tube placed. Patient will likely need transfer for decortication. Will obtain CT of the chest. (2) Sepsis Qualifiers: Sepsis type: sepsis due to unspecified organism Qualified Code(s): A41.9 - Sepsis, unspecified organism Is this a current diagnosis for this admission?: YesPlan: Patient currently meets sepsis criteria due to confusion, tachypnea, and leukocytosis. Patient also meets criteria for severe sepsis from her hypoxia. Concern at this time and can for gram-negative organisms. (3) Pneumonia Qualifiers: Pneumonia type: due to unspecified organism Laterality: right Lung location: lower lobe of lung Qualified Code(s): J18.1 - Lobar pneumonia, unspecified organism Is this a current diagnosis for this admission?: YesPlan: Day #2 vancomycin, aztreonam, and azithromycin. Patient is well covered for community-acquired pneumonia. Concern at this time for gram-negative or aspiration pneumonia due to location of her pneumonia, and patient's use of multiple sedating medications which could lead to inadvertent aspiration. Pending sputum culture. (4) Acute encephalopathy Is this a current diagnosis for this admission?: YesPlan: Will stop all narcotics at this time given patient's encephalopathy due to her narcotics. Will attempt to reach family for transfer and just to purposes. (5) Acute renal failure (ARF) Qualifiers: Acute renal failure type: unspecified Qualified Code(s): N17.9 - Acute kidney failure, unspecified Is this a current diagnosis for this admission?: YesPlan: Improved. Patient with CKG stage III as well. Prior creatinine appears to be 1.3. Likely multifactorial relating to probable acute on chronic, use of Lasix , enalapril/edge or thiazide, naproxen, and Bactrim in the setting of sepsis. (6) HTN (hypertension) Qualifiers: Hypertension type: essential hypertension Qualified Code(s): I10 - Essential (primary) hypertension Is this a current diagnosis for this admission?: YesPlan: Will be added as tolerated (7) UTI (urinary tract infection) Qualifiers: Urinary tract infection type: site unspecified Hematuria presence: without hematuria Qualified Code(s): N39.0 - Urinary tract infection, site not specified Is this a current diagnosis for this admission?: YesPlan: Patient with pansensitive Escherichia coli. Currently well covered. (8) Chronic back pain Qualifiers: Back pain location: back pain in unspecified location Back pain laterality: unspecified Qualified Code(s): M54.9 - Dorsalgia, unspecified ; G89.29 - Other chronic pain Is this a current diagnosis for this admission?: Yes (9) Diabetes mellitus type 2 in obese Is this a current diagnosis for this admission?: YesPlan: Check hemoglobin A1c. Family reports patient has recently been taken off of metformin, which I suspect is due to renal failure and has been on Januvia alone. They report high blood glucoses at home. (10) Anemia Qualifiers: Anemia type: iron deficiency Iron deficiency anemia type: unspecified iron deficiency Qualified Code(s): D50.9 - Iron deficiency anemia, unspecified Is this a current diagnosis for this admission?: YesPlan: We'll begin patient on iron (11) Chronic prescription opiate use Is this a current diagnosis for this admission?: YesPlan: Hold narcotics until patient is more arousable - Time Time Spent with patient: 25-34 minutes Medications reviewed and adjusted accordingly: Yes - Inpatient Certification Medical Necessity: Need for IV Antibiotics
[2017-01-17] MEDS: AZTREONAM 1.5 GM in DEXTROSE 5%-WATER 100 ML IV SCH ×3 (06:27→22:16)
[2017-01-17 06:30] LABS: PROTHROMBIN TIME 15.1 SEC (11.4-15.4)
[2017-01-17 06:31] LABS: PARTIAL THROMBOPLASTIN TIME 38.3 SEC (23.5-35.8)
[2017-01-17] MEDS: GABAPENTIN 300 MG CAPSULE PO SCH ×3 (06:31→22:17)
[2017-01-17 06:37] LABS: CREATININE RESULT 0.92 mg/dL (0.52-1.25)
[2017-01-17] MEDS: VANCOMYCIN HCL 1,500 MG in DEXTROSE 5%-WATER 250 ML IV SCH (07:25)
[2017-01-17 07:27] LABS: HEMATOCRIT 32.5 % (36.0-47.0); HEMOGLOBIN 10.8 g/dL (12.0-15.5); HGB HCT DIFFERENCE -0.1; MEAN CORPUSCULAR HGB CONC 33.2 g/dL (32.0-36.0); MEAN CORPUSCULAR VOLUME 84 fl (80-97); RED BLOOD COUNT 3.86 10^6/uL (3.72-5.28); RED CELL DISTRIBUTION WIDTH 14.3 % (11.5-14.0); WHITE BLOOD COUNT 13.7 10^3/uL (4.0-10.5)
[2017-01-17 08:08] LABS: BAND NEUTROPHILS % (MANUAL) 3 % (3-5); BASOPHILS % (MANUAL) 1 % (0-2); EOSINOPHILS % (MANUAL) 1 % (0-6); LYMPHOCYTES % (MANUAL) 28 % (13-45); TOTAL CELLS COUNTED 100
[2017-01-17 08:09] LABS: POLYCHROMASIA SLIGHT; TOXIC GRANULATION SLIGHT
[2017-01-17] MEDS: FERROUS SULFATE 325 MG TABLET PO SCH ×2 (08:10→18:09)
[2017-01-17] MEDS: INSULIN LISPRO 100 UNIT/ML 3 ML VIAL SUBCUT PRN ×2 (08:10→16:57)
[2017-01-17] MEDS: ACETYLCYSTEINE 20% SOLN 800 MG/4 ML VIAL.NEB NEB SCH ×2 (08:47→21:17)
[2017-01-17] MEDS: IPRATROPIUM/ALBUTEROL 0.5-2.5 MG/3 ML AMPUL NEB PRN ×2 (08:47→21:17)
[2017-01-17] MEDS: CYANOCOBALAMIN (VITAMIN B-12) 1,000 MCG TABLET PO SCH (09:10)
[2017-01-17] MEDS: DOCUSATE SODIUM 100 MG CAPSULE PO SCH ×2 (09:13→18:10)
[2017-01-17] MEDS: AZITHROMYCIN 250 MG TABLET PO SCH (09:13)
[2017-01-17] MEDS: GUAIFENESIN 600 MG TABLET.SA PO SCH ×2 (09:13→22:17)
[2017-01-17] MEDS: DULOXETINE HCL 30 MG CAPSULE.DR PO SCH (09:14)
[2017-01-17] MEDS: SITAGLIPTIN PHOSPHATE 50 MG TABLET PO SCH (09:14)
[2017-01-17] MEDS: LIDOCAINE 5% (700 MG) TRANSDERMAL ADH..PATCH TP SCH (09:16)
[2017-01-17] MEDS: MULTIVITAMINS W-IRON TABLET, CHEWABLE PO SCH (09:17)
[2017-01-17] MEDS: DIAZEPAM 5 MG TABLET PO PRN ×2 (09:20→18:10)
[2017-01-17] MEDS ORDERED: HEPARIN SOD (PORCINE) 1,000 UNIT/ML 10 ML VIAL IV ONE (11:30)
[2017-01-17 15:08] LABS: ANION GAP 11 (5-19); BLOOD UREA NITROGEN 14 mg/dL (7-20); CALCIUM 9.4 mg/dL (8.4-10.2); CARBON DIOXIDE 29 mmol/L (22-30); CHLORIDE 92 mmol/L (98-107); GLUCOSE 215 mg/dL (75-110); POTASSIUM 4.7 mmol/L (3.6-5.0); SODIUM 132.4 mmol/L (137-145)
--- NOTE | 2017-01-17 17:29 | PDOC PROGRESS REPORT ---
Subjective Progress Note for:: 01/17/17 Subjective:: Patient was febrile overnight. Patient complains of chest discomfort and difficulty breathing. Patient denies abdominal pain, nausea, vomiting, fevers, chills, diarrhea, constipation, headache, new onset weakness. Physical Exam Vital Signs: Temp Pulse Resp BP Pulse Ox 98.7 F 103 H 17 116/56 L 95 01/17/17 15:05 01/17/17 15:05 01/17/17 15:05 01/17/17 15:05 01/17/17 15:05 Intake & Output 01/16/17 01/17/17 01/18/17 06:59 06:59 06:59 Intake Total 1477 1805 Output Total 2345 1900 Balance -868 -95 Weight 112.8 kg 112.9 kg Exam: General: Awake, alert, oriented 3, no acute respiratory distress HEENT: PERRL, oropharynx is moist, pink, no scleral icterus, no conjunctival injection Neck: No JVD, trachea midline Chest: Diminished from right two thirds down, crackles right upper lobe CV: Regular rate and rhythm, normal S1 and S2, no murmur, rub, or gallop Abdomen: Soft, nontender to palpation, nondistended, active bowel sounds; no rebound, rigidity, or guarding Extremities: No cyanosis, clubbing or edema Neuro: Cranial nerves grossly intact without focal deficits Psych: Normal mood and affect Results Laboratory Results: 01/17/17 05:46 01/17/17 14:36 01/17/17 01/17/17 01/17/17 05:46 05:46 14:36 WBC 13.7 H RBC 3.86 Hgb 10.8 L Hct 32.5 L MCV 84 MCH 28.0 MCHC 33.2 RDW 14.3 H Plt Count 339 Seg Neutrophils % Not Reportable Lymphocytes % Not Reportable Monocytes % Not Reportable Eosinophils % Not Reportable Basophils % Not Reportable Absolute Neutrophils Not Reportable Absolute Lymphocytes Not Reportable Absolute Monocytes Not Reportable Absolute Eosinophils Not Reportable Absolute Basophils Not Reportable Sodium 132.4 L Potassium 4.7 Chloride 92 L Carbon Dioxide 29 Anion Gap 11 BUN 14 Creatinine 0.92 0.80 Est GFR ( Amer) > 60 > 60 Est GFR (Non-Af Amer) > 60 > 60 Glucose 215 H Calcium 9.4 Impressions: Renal Ultrasound 01/14/17 00:00 IMPRESSION: No hydronephrosis. KUB X-Ray 01/15/17 00:00 IMPRESSION: Gas pattern is nonspecific. Thoracentesis Ultrasound 01/15/17 06:00 IMPRESSION: SUCCESSFUL THORACENTESIS USING ULTRASOUND GUIDANCE. Chest X-Ray 01/16/17 00:00 IMPRESSION: Increasing right-sided pleural effusion. Chest CT 01/17/17 00:00 IMPRESSION: Significantly increased right pleural effusion now moderate to large in size. Persistent consolidation throughout the right lower lobe and now involving some portions of the right middle lobe. Tiny air bubble is noted in the posterior right inferior pleural space consistent with prior recent procedure. No other pleural gas. Consider pulmonary consultation. Assessment & Plan - Diagnosis (1) Pleural effusion associated with pulmonary infection Is this a current diagnosis for this admission?: YesPlan: Patient with exudative effusion. Surgery consulted for chest tube. They report they will place this in the morning. Patient will likely need transfer for decortication. CT of the chest does not reveal any septa but does reveal increase in size of the effusion. (2) Sepsis Qualifiers: Sepsis type: sepsis due to unspecified organism Qualified Code(s): A41.9 - Sepsis, unspecified organism Is this a current diagnosis for this admission?: YesPlan: Patient currently meets sepsis criteria due to confusion, tachypnea, and leukocytosis. Patient also meets criteria for severe sepsis from her hypoxia. Concern at this time and can for gram-negative organisms. (3) Pneumonia Qualifiers: Pneumonia type: due to unspecified organism Laterality: right Lung location: lower lobe of lung Qualified Code(s): J18.1 - Lobar pneumonia, unspecified organism Is this a current diagnosis for this admission?: YesPlan: Day #3 vancomycin, aztreonam, and azithromycin. Patient is well covered for community-acquired pneumonia/MRSA/atypical. Concern at this time for gram- negative or aspiration pneumonia due to location of her pneumonia, and patient' s use of multiple sedating medications which could lead to inadvertent aspiration. Pending sputum culture. (4) Acute encephalopathy Is this a current diagnosis for this admission?: YesPlan: Now resolved. Have placed new pain medication regimen. (5) Acute renal failure (ARF) Qualifiers: Acute renal failure type: unspecified Qualified Code(s): N17.9 - Acute kidney failure, unspecified Is this a current diagnosis for this admission?: YesPlan: Improved. Patient with CKD stage III as well. Prior creatinine appears to be 1.3. Likely multifactorial relating to probable acute on chronic, use of Lasix , enalapril/edge or thiazide, naproxen, and Bactrim in the setting of sepsis. (6) HTN (hypertension) Qualifiers: Hypertension type: essential hypertension Qualified Code(s): I10 - Essential (primary) hypertension Is this a current diagnosis for this admission?: YesPlan: Will be added as tolerated (7) UTI (urinary tract infection) Qualifiers: Urinary tract infection type: site unspecified Hematuria presence: without hematuria Qualified Code(s): N39.0 - Urinary tract infection, site not specified Is this a current diagnosis for this admission?: YesPlan: Patient with pansensitive Escherichia coli. Currently well covered. (8) Chronic back pain Qualifiers: Back pain location: back pain in unspecified location Back pain laterality: unspecified Qualified Code(s): M54.9 - Dorsalgia, unspecified ; G89.29 - Other chronic pain Is this a current diagnosis for this admission?: Yes (9) Diabetes mellitus type 2 in obese Is this a current diagnosis for this admission?: YesPlan: Continue sliding scale insulin. Hemoglobin A1c 9.6. (10) Anemia Qualifiers: Anemia type: iron deficiency Iron deficiency anemia type: unspecified iron deficiency Qualified Code(s): D50.9 - Iron deficiency anemia, unspecified Is this a current diagnosis for this admission?: YesPlan: We'll begin patient on iron (11) Chronic prescription opiate use Is this a current diagnosis for this admission?: YesPlan: Patient may resume her [place] provided by family - Time Time Spent with patient: 35 or more minutes Medications reviewed and adjusted accordingly: Yes
[2017-01-17] MEDS: VANCOMYCIN HCL 1,250 MG in DEXTROSE 5%-WATER 250 ML IV SCH (18:09)
[2017-01-17] MEDS: TRAMADOL HCL 50 MG TABLET PO PRN (18:09)
--- NOTE | 2017-01-17 21:23 | CONSULTATION REPORT E ---
Consultation Report NAME: ARIANNA DESOUZA : 1960 AGE: 56Y DATE: 01/17/2017 319 A TO: TANYA SHAH M.D. FROM: TAMI BAILEY M.D. Requesting Physician REQUESTING PHYSICIAN: Dr. Sheridan. REASON FOR CONSULTATION: Loculated pleural effusion. HISTORY OF PRESENT ILLNESS: The patient presented 3 days ago to the emergency room because of shortness of breath and cough. Chest x-ray showed a right pleural effusion. She had undergone thoracentesis with only 600 mL of fluid being obtained. There did not appear to be any empyema being present. A followup chest x-ray showed continued pulmonary effusion. CT scan of the chest shows persistent right pleural effusion with consolidation of the right lung. Her white blood cell count was initially 16 and has now decreased down to 13.7. Cultures of the pleural fluid have been negative but she did grow Evelyn albicans from her sputum. ALLERGIES: None. SOCIAL HISTORY: The patient is . PAST SURGICAL HISTORY: 1. Multiple back surgeries. 2. Appendectomy. 3. Cholecystectomy. 4. Hysterectomy. 5. Tonsillectomy. HABITS: She denies any drug or alcohol use or tobacco use currently. MEDICATIONS AT HOME: 1. Gabapentin. 2. Lasix. 3. Butrans. 4. Amitiza. 5. Valium. 6. Vaseretic. 7. Cymbalta. 8. Januvia. 9. Requip. 10. Omeprazole. 11. Naprosyn. 12. Ambien. 13. Zanaflex. MEDICAL PROBLEMS: 1. Chronic back pain. 2. Asthma. 3. Diabetes. 4. Arthritis. 5. Depression. FAMILY HISTORY: Coronary artery disease. ALLERGIES: 1. CEPHALOSPORINS. 2. CIPRO. 3. CLINDAMYCIN. 4. PENICILLIN. REVIEW OF SYSTEMS: PULMONARY: Shortness of breath and cough. MUSCULOSKELETAL: Chronic back pain. A 12-point review of systems obtained with pertinent positives discussed and all others being negative. PHYSICAL EXAMINATION: VITAL SIGNS: Temperature 98.7, heart rate 96, blood pressure 115/56. GENERAL: The patient is lying in bed. She is not having any significant distress. HEENT: Eyes nonicteric. NECK: No lymphadenopathy. HEART: Mildly tachycardic. LUNGS: Diminished on the right side with poor inspiration. ABDOMEN: Soft, nontender. EXTREMITIES: No edema or cyanosis. NEUROLOGIC: The patient appears to be neurologically intact without any deficit. PSYCHOLOGICAL: The patient is coherent, cooperative and appears to answer questions fully. DIAGNOSTIC DATA: See history of present illness. ASSESSMENT: Right pleural effusion most likely loculated, as it remains the same size after thoracentesis. I recommend placement of a chest tube and see if this resolves this effusion and expands the lung. If not, then she may need to have some type of thorascopic surgery. PLAN: Chest tube placement with MAC anesthesia, as she is extremely nervous and worried and is already on pain medication and anxiolytics. She would not be adequately sedated with conscious sedation to do the procedure. DICTATING PHYSICIAN: TANYA SHAH M.D. [id number] PHY#: [id number] 2019 ID: [id number] JOB#: [id number] ACCT: [id number] cc:TANYA SHAH M.D. >
[2017-01-17] MEDS ORDERED: ROPINIROLE HCL 2 MG TABLET PO SCH (22:00)
[2017-01-17] MEDS: ACETAMINOPHEN 325 MG TABLET PO PRN (22:16)
[2017-01-17] MEDS: SENNOSIDES/DOCUSATE 8.6-50 MG 1 EACH TABLET PO SCH (22:17)
[2017-01-18] MEDS: GABAPENTIN 300 MG CAPSULE PO SCH ×3 (05:46→21:26)
[2017-01-18] MEDS: VANCOMYCIN HCL 1,250 MG in DEXTROSE 5%-WATER 250 ML IV SCH ×2 (06:10→17:38)
[2017-01-18] MEDS: AZTREONAM 1.5 GM in DEXTROSE 5%-WATER 100 ML IV SCH ×3 (06:10→21:26)
[2017-01-18] MEDS: IPRATROPIUM/ALBUTEROL 0.5-2.5 MG/3 ML AMPUL NEB PRN ×2 (07:57→20:37)
[2017-01-18] MEDS: ACETYLCYSTEINE 20% SOLN 800 MG/4 ML VIAL.NEB NEB SCH ×2 (07:57→20:37)
[2017-01-18] MEDS: FERROUS SULFATE 325 MG TABLET PO SCH ×2 (08:20→17:34)
[2017-01-18 08:45] LABS: HEMATOCRIT 32.3 % (36.0-47.0); HEMOGLOBIN 10.8 g/dL (12.0-15.5); HGB HCT DIFFERENCE 0.1; MEAN CORPUSCULAR HEMOGLOBIN 28.2 pg (27.0-33.4); MEAN CORPUSCULAR HGB CONC 33.4 g/dL (32.0-36.0); MEAN CORPUSCULAR VOLUME 85 fl (80-97); RED BLOOD COUNT 3.83 10^6/uL (3.72-5.28); RED CELL DISTRIBUTION WIDTH 14.5 % (11.5-14.0); WHITE BLOOD COUNT 15.3 10^3/uL (4.0-10.5)
[2017-01-18 08:52] LABS: PROTHROMBIN TIME 15.4 SEC (11.4-15.4)
[2017-01-18 08:53] LABS: PARTIAL THROMBOPLASTIN TIME 35.3 SEC (23.5-35.8)
[2017-01-18 09:04] LABS: ANION GAP 15 (5-19); BLOOD UREA NITROGEN 14 mg/dL (7-20); CALCIUM 9.3 mg/dL (8.4-10.2); CARBON DIOXIDE 29 mmol/L (22-30); CHLORIDE 94 mmol/L (98-107); CREATININE RESULT 0.78 mg/dL (0.52-1.25); GLUCOSE 191 mg/dL (75-110); POTASSIUM 4.8 mmol/L (3.6-5.0); SODIUM 137.9 mmol/L (137-145)
[2017-01-18 09:11] LABS: BAND NEUTROPHILS % (MANUAL) 1 % (3-5); BASOPHILS % (MANUAL) 0 % (0-2); EOSINOPHILS % (MANUAL) 3 % (0-6); LYMPHOCYTES % (MANUAL) 17 % (13-45); TOTAL CELLS COUNTED 100
[2017-01-18 09:13] LABS: ANISOCYTOSIS SLIGHT; POLYCHROMASIA 1+; TOXIC GRANULATION SLIGHT
--- NOTE | 2017-01-18 09:17 | PDOC PROGRESS REPORT ---
Subjective Progress Note for:: 01/18/17 Subjective:: Anxious about the chest tube. Right-sided chest discomfort. Physical Exam Vital Signs: Temp Pulse Resp BP Pulse Ox 98.9 F 100 20 122/72 90 L 01/18/17 07:23 01/18/17 07:23 01/18/17 07:23 01/18/17 07:23 01/18/17 07:23 Intake & Output 01/17/17 01/18/17 01/19/17 06:59 06:59 06:59 Intake Total 1805 1830 Output Total 1900 Balance -95 1830 Weight 112.9 kg 110 kg General appearance: PRESENT: no acute distress, cooperative Respiratory exam: PRESENT: decreased breath sounds - On the right base. Cardiovascular exam: PRESENT: RRR Results Laboratory Results: 01/18/17 08:20 01/18/17 08:20 01/17/17 01/18/17 01/18/17 14:36 08:20 08:20 WBC 15.3 H RBC 3.83 Hgb 10.8 L Hct 32.3 L MCV 85 MCH 28.2 MCHC 33.4 RDW 14.5 H Plt Count 386 Seg Neutrophils % Not Reportable Lymphocytes % Not Reportable Monocytes % Not Reportable Eosinophils % Not Reportable Basophils % Not Reportable Absolute Neutrophils Not Reportable Absolute Lymphocytes Not Reportable Absolute Monocytes Not Reportable Absolute Eosinophils Not Reportable Absolute Basophils Not Reportable Sodium 132.4 L 137.9 Potassium 4.7 4.8 Chloride 92 L 94 L Carbon Dioxide 29 29 Anion Gap 11 15 BUN 14 14 Creatinine 0.80 0.78 Est GFR ( Amer) > 60 > 60 Est GFR (Non-Af Amer) > 60 > 60 Glucose 215 H 191 H Calcium 9.4 9.3 Impressions: Renal Ultrasound 01/14/17 00:00 IMPRESSION: No hydronephrosis. KUB X-Ray 01/15/17 00:00 IMPRESSION: Gas pattern is nonspecific. Thoracentesis Ultrasound 01/15/17 06:00 IMPRESSION: SUCCESSFUL THORACENTESIS USING ULTRASOUND GUIDANCE. Chest X-Ray 01/16/17 00:00 IMPRESSION: Increasing right-sided pleural effusion. Chest CT 01/17/17 00:00 IMPRESSION: Significantly increased right pleural effusion now moderate to large in size. Persistent consolidation throughout the right lower lobe and now involving some portions of the right middle lobe. Tiny air bubble is noted in the posterior right inferior pleural space consistent with prior recent procedure. No other pleural gas. Consider pulmonary consultation. Assessment & Plan - Diagnosis (1) Pleural effusion associated with pulmonary infection Is this a current diagnosis for this admission?: YesPlan: Right side parapneumonic effusion. Plan right-sided tube thoracostomy today. Patient is very anxious about the chest tube placement the therefore will plan to do it under LMAC in the operating room as per patient request. I have discussed with the patient the risk and benefits of the procedure including risk of lung injury adjacent structure injury, bleeding, infection. Patient understands and agrees to proceed.
[2017-01-18] MEDS: LIDOCAINE 5% (700 MG) TRANSDERMAL ADH..PATCH TP SCH (09:43)
[2017-01-18] MEDS: SITAGLIPTIN PHOSPHATE 50 MG TABLET PO SCH (09:50)
[2017-01-18] MEDS: DULOXETINE HCL 30 MG CAPSULE.DR PO SCH (09:51)
[2017-01-18] MEDS: AZITHROMYCIN 250 MG TABLET PO SCH (09:51)
[2017-01-18] MEDS: MULTIVITAMINS W-IRON TABLET, CHEWABLE PO SCH (09:53)
[2017-01-18] MEDS: GUAIFENESIN 600 MG TABLET.SA PO SCH ×2 (09:53→21:26)
[2017-01-18] MEDS: DIAZEPAM 5 MG TABLET PO PRN ×2 (09:53→17:35)
[2017-01-18] MEDS: DOCUSATE SODIUM 100 MG CAPSULE PO SCH ×2 (09:53→17:34)
[2017-01-18] MEDS: CYANOCOBALAMIN (VITAMIN B-12) 1,000 MCG TABLET PO SCH (09:53)
[2017-01-18] MEDS ORDERED: KETAMINE HCL INJ 500 MG/10 ML VIAL ONE (12:18)
[2017-01-18] MEDS ORDERED: PROPOFOL INJ 200 MG/20 ML VIAL IV ONE (12:19)
[2017-01-18] MEDS ORDERED: MIDAZOLAM 2 MG/2 ML INJ ONE (12:19)
[2017-01-18] MEDS ORDERED: LIDOCAINE 1% INJ-PF (10 MG/ML) 30 ML SDV ONE (12:48)
[2017-01-18] MEDS ORDERED: MORPHINE SULFATE 10 MG/ML INJ IV PRN ×2 (12:52→13:22)
[2017-01-18] MEDS ORDERED: DIPHENHYDRAMINE HCL 50 MG/ML VIAL IV PRN (12:52)
[2017-01-18] MEDS ORDERED: PROMETHAZINE HCL INJ 25 MG/1 ML VIAL IV PRN ×2 (12:52)
[2017-01-18] MEDS ORDERED: OXYCODONE-ACETAMINOPHEN 5-325 MG TABLET PO PRN ×2 (12:52)
[2017-01-18] MEDS ORDERED: FENTANYL CITRATE INJ/PF 100 MCG/2 ML AMPUL IV PRN ×3 (12:52)
--- NOTE | 2017-01-18 13:15 | PDOC PROGRESS REPORT ---
Subjective Progress Note for:: 01/18/17 Subjective:: Patient has been mildly febrile overnight. MAXIMUM TEMPERATURE overnight of 100.5F in the last 24 hours. Patient does report some coughing and shortness of breath. Patient denies chest pain, abdominal pain, nausea, vomiting, diarrhea, constipation, headache, new onset weakness. Physical Exam Vital Signs: Temp Pulse Resp BP Pulse Ox 98.3 F 90 20 111/63 97 01/18/17 03:47 01/18/17 03:47 01/18/17 03:47 01/18/17 03:47 01/18/17 03:47 Intake & Output 01/17/17 01/18/17 01/19/17 06:59 06:59 06:59 Intake Total 1805 1830 Output Total 1900 Balance -95 1830 Weight 112.9 kg 110 kg Exam: General: Awake, alert, oriented 3, no acute respiratory distress HEENT: PERRL, oropharynx is moist, pink, no scleral icterus, no conjunctival injection Neck: No JVD, trachea midline Chest: Diminished from right two thirds down, crackles right upper lobe CV: Regular rate and rhythm, normal S1 and S2, no murmur, rub, or gallop Abdomen: Soft, nontender to palpation, nondistended, active bowel sounds; no rebound, rigidity, or guarding Extremities: No cyanosis, clubbing or edema Neuro: Cranial nerves grossly intact without focal deficits Psych: Anxious Results Laboratory Results: 01/17/17 05:46 01/17/17 14:36 01/17/17 01/17/17 05:46 14:36 WBC 13.7 H RBC 3.86 Hgb 10.8 L Hct 32.5 L MCV 84 MCH 28.0 MCHC 33.2 RDW 14.3 H Plt Count 339 Seg Neutrophils % Not Reportable Lymphocytes % Not Reportable Monocytes % Not Reportable Eosinophils % Not Reportable Basophils % Not Reportable Absolute Neutrophils Not Reportable Absolute Lymphocytes Not Reportable Absolute Monocytes Not Reportable Absolute Eosinophils Not Reportable Absolute Basophils Not Reportable Sodium 132.4 L Potassium 4.7 Chloride 92 L Carbon Dioxide 29 Anion Gap 11 BUN 14 Creatinine 0.80 Est GFR ( Amer) > 60 Est GFR (Non-Af Amer) > 60 Glucose 215 H Calcium 9.4 Impressions: Renal Ultrasound 01/14/17 00:00 IMPRESSION: No hydronephrosis. KUB X-Ray 01/15/17 00:00 IMPRESSION: Gas pattern is nonspecific. Thoracentesis Ultrasound 01/15/17 06:00 IMPRESSION: SUCCESSFUL THORACENTESIS USING ULTRASOUND GUIDANCE. Chest X-Ray 01/16/17 00:00 IMPRESSION: Increasing right-sided pleural effusion. Chest CT 01/17/17 00:00 IMPRESSION: Significantly increased right pleural effusion now moderate to large in size. Persistent consolidation throughout the right lower lobe and now involving some portions of the right middle lobe. Tiny air bubble is noted in the posterior right inferior pleural space consistent with prior recent procedure. No other pleural gas. Consider pulmonary consultation. Assessment & Plan - Diagnosis (1) Pleural effusion associated with pulmonary infection Is this a current diagnosis for this admission?: YesPlan: Patient with exudative effusion. Surgery consulted for chest tube. Patient to the OR this afternoon for placement under conscious sedation. CT of the chest does not reveal any septa, but still concerned the patient may need future decortication and/or VATS procedure. Will resend pleural fluid studies. (2) Sepsis Qualifiers: Sepsis type: sepsis due to unspecified organism Qualified Code(s): A41.9 - Sepsis, unspecified organism Is this a current diagnosis for this admission?: YesPlan: Patient currently meets sepsis criteria due to confusion, tachypnea, and leukocytosis. Patient also meets criteria for severe sepsis from her hypoxia. Concern at this time and can for gram-negative organisms. (3) Pneumonia Qualifiers: Pneumonia type: due to unspecified organism Laterality: right Lung location: lower lobe of lung Qualified Code(s): J18.1 - Lobar pneumonia, unspecified organism Is this a current diagnosis for this admission?: YesPlan: Day #4 vancomycin, aztreonam, and azithromycin. Patient is well covered for community-acquired pneumonia/MRSA/atypical. Concern at this time for gram- negative or aspiration pneumonia due to location of her pneumonia, and patient' s use of multiple sedating medications which could lead to inadvertent aspiration. Current sputum culture is normal. (4) Acute encephalopathy Is this a current diagnosis for this admission?: YesPlan: Now resolved. Have placed new pain medication regimen. (5) Acute renal failure (ARF) Qualifiers: Acute renal failure type: unspecified Qualified Code(s): N17.9 - Acute kidney failure, unspecified Is this a current diagnosis for this admission?: YesPlan: Improved. Patient with CKD stage II-III as well. Prior creatinine appears to be 1.3. Likely multifactorial relating to probable acute on chronic, use of Lasix, enalapril/edge or thiazide, naproxen, and Bactrim in the setting of sepsis. (6) HTN (hypertension) Qualifiers: Hypertension type: essential hypertension Qualified Code(s): I10 - Essential (primary) hypertension Is this a current diagnosis for this admission?: YesPlan: Will be added as tolerated (7) UTI (urinary tract infection) Qualifiers: Urinary tract infection type: site unspecified Hematuria presence: without hematuria Qualified Code(s): N39.0 - Urinary tract infection, site not specified Is this a current diagnosis for this admission?: YesPlan: Patient with pansensitive Escherichia coli. Patient is currently completed 4 days of antibiotic therapy. (8) Chronic back pain Qualifiers: Back pain location: back pain in unspecified location Back pain laterality: unspecified Qualified Code(s): M54.9 - Dorsalgia, unspecified ; G89.29 - Other chronic pain Is this a current diagnosis for this admission?: YesPlan: Patient chronically on. BuTrans-patch and Valium, Requip, Zanaflex, gabapentin , and Cymbalta. We'll continue these as renal function allows. (9) Diabetes mellitus type 2 in obese Is this a current diagnosis for this admission?: YesPlan: Continue sliding scale insulin. Patient on Januvia. Hemoglobin A1c 9.6. (10) Anemia Qualifiers: Anemia type: iron deficiency Iron deficiency anemia type: unspecified iron deficiency Qualified Code(s): D50.9 - Iron deficiency anemia, unspecified Is this a current diagnosis for this admission?: Yes (11) Chronic prescription opiate use Is this a current diagnosis for this admission?: YesPlan: Patient may resume her [place] provided by family (12) CKD stage 2 due to type 2 diabetes mellitus Is this a current diagnosis for this admission?: Yes - Time Time Spent with patient: 25-34 minutes Medications reviewed and adjusted accordingly: Yes - Inpatient Certification Based on my medical assessment, after consideration of the patient's comorbidities, presenting symptoms, or acuity I expect that the services needed warrant INPATIENT care.: Yes I certify that my determination is in accordance with my understanding of Medicare's requirements for reasonable and necessary INPATIENT services [42 CFR 412.3e].: Yes Medical Necessity: Need for Nebulizer Therapy and Monitoring of Response, Need for IV Antibiotics Post Hospital Care: D/C Career Resource Specialist Documentation
[2017-01-18] MEDS: FENTANYL CITRATE INJ/PF 100 MCG/2 ML AMPUL ONE ×2 (13:35→13:44)
[2017-01-18 14:45] LABS: FLUID APPEARANCE CLOUDY; FLUID TYPE PLEURAL
[2017-01-18 15:02] LABS: FLUID RBC DILUENT USED SALINE; FLUID RBC DILUTION FACTOR 10; FLUID RBC SIDE 1 320; FLUID RBC SIDE 2 314; TOTAL RBC SQUARES COUNTED FLD 25
[2017-01-18] MEDS: TRAMADOL HCL 50 MG TABLET PO PRN (17:37)
[2017-01-18] MEDS ORDERED: MORPHINE SULFATE 10 MG/ML INJ ONE (19:50)
[2017-01-18] MEDS: SENNOSIDES/DOCUSATE 8.6-50 MG 1 EACH TABLET PO SCH (21:26)
[2017-01-18] MEDS: ACETAMINOPHEN 325 MG TABLET PO PRN (23:49)
[2017-01-19] MEDS: MORPHINE SULFATE 10 MG/ML INJ IV PRN ×2 (03:00→08:36)
[2017-01-19] MEDS: VANCOMYCIN HCL 1,250 MG in DEXTROSE 5%-WATER 250 ML IV SCH (05:51)
[2017-01-19] MEDS: GABAPENTIN 300 MG CAPSULE PO SCH (05:51)
[2017-01-19 06:10] LABS: ABSOLUTE BASOPHILS # (AUTO) 0.1 10^3/uL (0.0-0.2); ABSOLUTE EOSINOPHILS # (AUTO) 0.3 10^3/uL (0.0-0.6); ABSOLUTE LYMPHOCYTES (AUTO) 2.5 10^3/uL (0.5-4.7); ABSOLUTE MONOCYTES (AUTO) 1.2 10^3/uL (0.1-1.4); ABSOLUTE NEUT (AUTO) 8.6 10^3/uL (1.7-8.2); BASOPHILS % (AUTO) 1.2 % (0-2); EOSINOPHILS % (AUTO) 2.3 % (0-6); HEMATOCRIT 31.9 % (36.0-47.0); HEMOGLOBIN 10.8 g/dL (12.0-15.5); HGB HCT DIFFERENCE 0.5; LYMPHOCYTES % (AUTO) 19.7 % (13-45); MEAN CORPUSCULAR HEMOGLOBIN 28.2 pg (27.0-33.4); MEAN CORPUSCULAR HGB CONC 33.8 g/dL (32.0-36.0); MEAN CORPUSCULAR VOLUME 84 fl (80-97); MONOCYTES % (AUTO) 9.2 % (3-13); RED BLOOD COUNT 3.82 10^6/uL (3.72-5.28); RED CELL DISTRIBUTION WIDTH 14.4 % (11.5-14.0); SEGMENTED NEUTROPHILS % (AUTO) 67.6 % (42-78); WHITE BLOOD COUNT 12.7 10^3/uL (4.0-10.5)
[2017-01-19 06:23] LABS: ANION GAP 14 (5-19); BLOOD UREA NITROGEN 10 mg/dL (7-20); CARBON DIOXIDE 28 mmol/L (22-30); CHLORIDE 97 mmol/L (98-107); CREATININE RESULT 0.73 mg/dL (0.52-1.25); GLUCOSE 124 mg/dL (75-110); MAGNESIUM 2.1 mg/dL (1.6-2.3); POTASSIUM 4.2 mmol/L (3.6-5.0); SODIUM 139.4 mmol/L (137-145)
[2017-01-19 06:31] LABS: PREALBUMIN 6.2 mg/dL (17.6-36.0)
[2017-01-19] MEDS: AZTREONAM 1.5 GM in DEXTROSE 5%-WATER 100 ML IV SCH (07:53)
[2017-01-19] MEDS: IPRATROPIUM/ALBUTEROL 0.5-2.5 MG/3 ML AMPUL NEB PRN (07:53)
[2017-01-19] MEDS: ACETYLCYSTEINE 20% SOLN 800 MG/4 ML VIAL.NEB NEB SCH (07:54)
[2017-01-19] MEDS: MULTIVITAMINS W-IRON TABLET, CHEWABLE PO SCH (10:07)
[2017-01-19] MEDS: GUAIFENESIN 600 MG TABLET.SA PO SCH (10:08)
[2017-01-19] MEDS: AZITHROMYCIN 250 MG TABLET PO SCH (10:08)
[2017-01-19] MEDS: SITAGLIPTIN PHOSPHATE 50 MG TABLET PO SCH (10:08)
[2017-01-19] MEDS: DULOXETINE HCL 30 MG CAPSULE.DR PO SCH (10:09)
[2017-01-19] MEDS: FERROUS SULFATE 325 MG TABLET PO SCH (10:09)
[2017-01-19] MEDS: DOCUSATE SODIUM 100 MG CAPSULE PO SCH (10:09)
[2017-01-19] MEDS: CYANOCOBALAMIN (VITAMIN B-12) 1,000 MCG TABLET PO SCH (10:09)
[2017-01-19] MEDS: LIDOCAINE 5% (700 MG) TRANSDERMAL ADH..PATCH TP SCH (10:10)
[2017-01-19] MEDS: DIAZEPAM 5 MG TABLET PO PRN (10:11)
[2017-01-19 11:34] VITALS: BP 102/50
[2017-01-19] MEDS: INSULIN LISPRO 100 UNIT/ML 3 ML VIAL SUBCUT PRN (12:07)
--- NOTE | 2017-01-19 14:23 | PDOC TRANSFER SUMMARY ---
General Admission Date/PCP: 01/14/17 04:55 JC BAH MD Admission Date: 01/14/17 Transfer Date: 01/19/17 Accepting Facility: [facility] Accepting Physician: Dr. Conrad [facility] Resuscitation Status: Full Code - Transfer Diagnosis (1) Pleural effusion associated with pulmonary infection Is this a current diagnosis for this admission?: YesDiagnosis Summary: Patient underwent diagnostic thoracocentesis during which time 650 mL of fluid were obtained and found to be exudative without any bacterial growth. Surgery was consulted for chest tube placement and was placed on 01/18/2017. Initially resulting in 300 mL of fluid out, but no further drainage. Repeat chest CT revealed that to was in good place. At this time they do recommend decortication procedure and patient was accepted by the CTS surgery service at [facility]. (2) Sepsis Is this a current diagnosis for this admission?: YesDiagnosis Summary: Patient was found to have sepsis secondary to underlying pneumonia as well as pansensitive Escherichia coli UTI. Current sputum cultures are negative for any growth. Patient has been treated with Azactam, azithromycin, and vancomycin. Patient currently meets sepsis criteria due to confusion, tachypnea, and leukocytosis. Patient also meets criteria for severe sepsis from her hypoxia. (3) Pneumonia Is this a current diagnosis for this admission?: YesDiagnosis Summary: Patient currently on day #5 vancomycin, aztreonam, and azithromycin. Concern at this time for gram-negative or aspiration pneumonia due to location of her pneumonia, and patient's use of multiple sedating medications which could lead to inadvertent aspiration. Current sputum culture is normal. Patient still with fever likely secondary to parapneumonic effusion. MAXIMUM TEMPERATURE the last 24 hours was 100.4F at 0723. (4) Acute encephalopathy Is this a current diagnosis for this admission?: YesDiagnosis Summary: This is resolved currently. This is secondary to underlying sepsis, hypoxia, and use of narcotics/sedating medications. (5) Acute renal failure (ARF) Is this a current diagnosis for this admission?: YesDiagnosis Summary: Patient was found to be in acute renal failure secondary which responded to hydration. Likely multifactorial relating to probable acute on chronic, use of Lasix, enalapril/edge or thiazide, naproxen, and Bactrim in the setting of sepsis. Patient found to have baseline creatinine of 1.1-1.3. (6) CKD stage 2 due to type 2 diabetes mellitus Is this a current diagnosis for this admission?: YesDiagnosis Summary: Prior creatinine appears to be 1.1-1.3. (7) HTN (hypertension) Is this a current diagnosis for this admission?: Yes (8) UTI (urinary tract infection) Is this a current diagnosis for this admission?: YesDiagnosis Summary: Patient found to have pansensitive Escherichia coli (9) Chronic back pain Is this a current diagnosis for this admission?: Yes (10) Diabetes mellitus type 2 in obese Is this a current diagnosis for this admission?: Yes (11) Anemia Is this a current diagnosis for this admission?: Yes (12) Chronic prescription opiate use Is this a current diagnosis for this admission?: Yes - Transfer Medications Home Medications: Buprenorphine [Butrans] 1 patch TD MO 01/14/17 Diazepam [Valium 5 mg Tablet] 5 mg PO BID PRN 01/14/17 Duloxetine HCl [Cymbalta] 60 mg PO DAILY 01/14/17 Enalapril/Hydrochlorothiazide [Vaseretic 10-25 mg Tablet] 1 tab PO DAILY Furosemide [Lasix] 20 mg PO PRN PRN 01/14/17 Gabapentin 300 mg PO TID 01/14/17 Lubiprostone [Amitiza 24 Mcg Capsule] 24 mcg PO BID 01/14/17 Naproxen 500 mg PO Q12 PRN 01/14/17 Omeprazole 20 mg PO DAILY 01/14/17 Ropinirole HCl [Requip Xl] 2 mg PO BID 01/14/17 Sitagliptin Phosphate [Januvia] 100 mg PO DAILY 01/14/17 Tizanidine HCl [Zanaflex 4 mg Tablet] 4 mg PO TIDP PRN 01/14/17 Zolpidem Tartrate [Ambien] 10 mg PO QHS 01/14/17 - Allergies Allergies/Adverse Reactions: Cephalosporins Allergy (Verified 01/11/17 06:03) Hives ciprofloxacin [Ciprofloxacin] Allergy (Verified 01/11/17 06:03) clindamycin [Clindamycin] Allergy (Verified 01/11/17 06:03) Hives Penicillins Allergy (Verified 01/11/17 06:03) Hives - Diet/Activity Discharge Diet: Cardiac, Diabetic Discharge Activity: Activity As Tolerated Hospital Course Hospital Course: Patient is a 56-year-old female who presented to the emergency department with altered mental status/confusion. Patient had been seen in the emergency department 3 days before and had been prescribed Bactrim for her pneumonia. Patient was found to be in acute renal failure with a creatinine of 2.6. Patient was given IV hydration and initiated on broad-spectrum antibiotic coverage. Patient overall improved as did her white count, but she continued to be febrile with associated parapneumonic effusion. Patient was given diagnostic thoracocentesis by interventional radiology and subsequent chest tube placement by surgery. Chest tube however did not drain and it was felt the patient needed a VATS or decortication procedure. Patient was accepted by [facility] for this procedure. Patient was transferred in stable condition. Physical Exam Vital Signs: Temp Pulse Resp BP Pulse Ox 98.8 F 100 16 102/50 L 94 01/19/17 11:09 01/19/17 11:09 01/19/17 11:09 01/19/17 11:09 01/19/17 11:09 Intake & Output 01/18/17 01/19/17 01/20/17 06:59 06:59 06:59 Intake Total 1830 1957 400 Output Total 845 Balance 1830 1112 400 Weight 110 kg 110.1 kg Exam: General: Awake, alert, oriented 3, no acute respiratory distress HEENT: PERRL, oropharynx is moist, pink, no scleral icterus, no conjunctival injection Neck: No JVD, trachea midline Chest: Right-sided chest tube in place, Diminished from right two thirds down, crackles right upper lobe, clear on the left CV: Regular rate and rhythm, normal S1 and S2, no murmur, rub, or gallop Abdomen: Soft, nontender to palpation, nondistended, hypoactive bowel sounds; no rebound, rigidity, or guarding Extremities: No cyanosis, clubbing or edema Neuro: Cranial nerves grossly intact without focal deficits Psych: Anxious Results Laboratory Results: 01/19/17 05:44 01/19/17 05:44 01/18/17 01/19/17 01/19/17 13:03 05:44 05:44 WBC 12.7 H RBC 3.82 Hgb 10.8 L Hct 31.9 L MCV 84 MCH 28.2 MCHC 33.8 RDW 14.4 H Plt Count 399 Seg Neutrophils % 67.6 Lymphocytes % 19.7 Monocytes % 9.2 Eosinophils % 2.3 Basophils % 1.2 Absolute Neutrophils 8.6 H Absolute Lymphocytes 2.5 Absolute Monocytes 1.2 Absolute Eosinophils 0.3 Absolute Basophils 0.1 Sodium 139.4 Potassium 4.2 Chloride 97 L Carbon Dioxide 28 Anion Gap 14 BUN 10 Creatinine 0.73 Est GFR ( Amer) > 60 Est GFR (Non-Af Amer) > 60 Glucose 124 H Calcium 9.0 Magnesium 2.1 Prealbumin 6.2 L Fluid Type PLEURAL Fluid Source LUNG Fluid Color RED Fluid Appearance CLOUDY Fluid Viscosity LIQUID Fluid WBC 50 Fluid RBC 83777 01/15/17 12:53 Pleural Fluid - Right Pleural Effusion Gram Stain - Final 01/15/17 12:53 Pleural Fluid - Right Pleural Effusion Body Fluid Culture - Final NO AEROBIC OR ANAEROBIC ORGANISMS RECOVERED 01/14/17 07:01 Blood Blood Culture - Final NO GROWTH IN 5 DAYS Impressions: Renal Ultrasound 01/14/17 00:00 IMPRESSION: No hydronephrosis. KUB X-Ray 01/15/17 00:00 IMPRESSION: Gas pattern is nonspecific. Thoracentesis Ultrasound 01/15/17 06:00 IMPRESSION: SUCCESSFUL THORACENTESIS USING ULTRASOUND GUIDANCE. Chest CT 01/18/17 00:00 IMPRESSION: INTERVAL PLACEMENT OF A RIGHT-SIDED CHEST TUBE WHICH APPEARS TO BE IN APPROPRIATE POSITION. THE LARGE RIGHT PLEURAL EFFUSION MAY BE MINIMALLY SMALLER. THESE FINDINGS WERE DISCUSSED WITH DR. ADDISON. THE CHEST TUBE WILL BE PLACED TO SUCTION AND THE PATIENT WILL BE REEXAMINED IN THE MORNING. IF THE PLEURAL EFFUSION HAS NOT DECREASED APPROPRIATELY, THEN THE PATIENT WILL BE EVALUATED FOR ULTRASOUND-GUIDED TUBE PLACEMENT. Chest X-Ray 01/19/17 06:00 IMPRESSION: STABLE RIGHT CHEST TUBE WITH DECREASE IN THE RIGHT PLEURAL EFFUSION. Plan Time Spent: Greater than 30 Minutes
[2017-01-19] MEDS ORDERED: VANCOMYCIN HCL 1,000 MG in DEXTROSE 5%-WATER 250 ML IV SCH (18:00)
--- NOTE | 2017-01-19 20:48 | PROGRESS NOTE E ---
Progress Note NAME: ARIANNA DESOUZA : 1960 AGE: 56Y DATE: 01/19/2017 ROOM: 319 SUBJECTIVE: The patient had a right pleural effusion, undergoing right chest tube placement yesterday. The patient feels that she is breathing well. OBJECTIVE: The patient has chest tube placed in the right chest. DIAGNOSTIC DATA: Chest x-ray shows continued effusion on the right side, most likely loculated. ASSESSMENT: Right pleural effusion status post chest tube placement with continued effusion, most likely loculated. PLAN: The patient will be referred to an outside facility for consideration of VATS. DICTATING PHYSICIAN: TANYA SHAH M.D. [id number] PHY#: [id number] ID: [id number] JOB#: [id number] ACCT: [id number] cc: > MTDD
[2017-01-21 08:18] LABS: ALBUMIN BODY FLUID 2.7 g/dL (.)
--- NOTE | 2017-02-12 09:05 | Operative Report ---
Operative Report DATE OF SURGERY: 01/18/17 PREOPERATIVE DIAGNOSIS: Right pleural effusion POSTOPERATIVE DIAGNOSIS: Right pleural effusion OPERATION: Right tube thoracostomy SURGEON: MARY ANN ADDISON ANESTHESIA: LMAC TISSUE REMOVED OR ALTERED: Pleural fluid sent for studies. COMPLICATIONS: None ESTIMATED BLOOD LOSS: minimal INTRAOPERATIVE FINDINGS: Straw-colored fluid in the pleural cavity. PROCEDURE: Informed consent was obtained. Patient was too anxious to undergo chest tube placement the underlying colon sedation. Such an attempt would of the wrist contamination as well as the the surgeon. Patient requested the procedure to be done in the operating room under monitored anesthesia care. Patient was brought to the operating room placed on the operating table in supine position. He was done under LMAC under heavy sedation. Patient's right the chest was prepped and draped in usual sterile fashion. Local anesthetic was injected. Incision was made at the mammary crease at the anterior axillary line. a tunnel was created going posteriorly. The right pleural cavity was entered with a Amita clamp at approximately the sixth intercostal space. There was a gush of straw-colored fluid. 28 Icelandic chest tube was inserted aiming posteriorly. It was sutured in place. Approximately 150 mL of the straw-colored fluid was spilled on the bed. approximately 100 mL was aspirated with a catheter syringe and the placed in a sterile container and sent to pathology for various studies. The chest tube was connected to the pleural VAC. No air leak was evident. Dressings were applied. Patient tolerated procedure well with no apparent complications and was taken to the recovery area in stable condition.
== END 2017-01-19 12:30 | disposition short-term general hospital (02) | DRG 871 ==
LOC: ER 01:10 → UNDOADMIN 04:15 → EH 04:15 → ICU 08:32 → 3W 01-16 16:30
PROVIDERS: ADMIT Family Medicine; ATTEND Family Medicine
PROC: 0W993ZX Drainage of Right Pleural Cavity, Percutaneous Approach, Diagnostic (ICD-10-PCS; principal; 2017-01-15)
PROC: 0W9900Z Drainage of Right Pleural Cavity with Drainage Device, Open Approach (ICD-10-PCS; 2017-01-18)
DX: A41.9 Sepsis, unspecified organism (principal); G93.41 Metabolic encephalopathy; J18.1 Lobar pneumonia, unspecified organism; N17.9 Acute kidney failure, unspecified; J90 Pleural effusion, not elsewhere classified; N39.0 Urinary tract infection, site not specified; R65.20 Severe sepsis without septic shock; E11.22 Type 2 diabetes mellitus with diabetic chronic kidney disease; I12.9 Hypertensive chronic kidney disease with stage 1 through stage 4 chronic kidney disease, or unspecified chronic kidney disease; N18.2 Chronic kidney disease, stage 2 (mild); D64.9 Anemia, unspecified; F11.90 Opioid use, unspecified, uncomplicated; E78.5 Hyperlipidemia, unspecified; G89.29 Other chronic pain; M54.9 Dorsalgia, unspecified; B96.20 Unspecified Escherichia coli [E. coli] as the cause of diseases classified elsewhere; F32.9 Major depressive disorder, single episode, unspecified; Z88.1 Allergy status to other antibiotic agents; Z88.0 Allergy status to penicillin
CPT/HCPCS: 00520; 32555; 36415; 71010; 71020; 71250; 71275; 74000; 74177; 76775; 80048; 80053; 80202; 80307; 81001; 82040; 82042; 82150; 82550; 82565; 82607; 82728; 82746; 82803; 82945; 82962; 83036; 83540; 83550; 83605; 83615; 83735; 84134; 84311; 84466; 85025; 85045; 85610; 85730; 87040; 87070; 87075; 87086; 87088; 87186; 87205; 87804; 89050; 93005; 93010; 94640; 94667; 94799; 96361; 96374; 96375; 96376; 99284; 99285; G8996-GN; G8997-GN; G8998-GN; J0456; J1170; J1644; J1815; J1885; J1956; J2060; J2250; J2270; J2405; J2704; J3010; J3370; J3490; J7030; J7060; J7620

== ENCOUNTER → 2017-01-31 | Outpatient (CLI) | payer MEDICARE ==
[2017-01-31 11:45] LABS: ABSOLUTE BASOPHILS # (AUTO) 0.1 10^3/uL (0.0-0.2); ABSOLUTE EOSINOPHILS # (AUTO) 0.4 10^3/uL (0.0-0.6); ABSOLUTE LYMPHOCYTES (AUTO) 2.6 10^3/uL (0.5-4.7); ABSOLUTE MONOCYTES (AUTO) 0.4 10^3/uL (0.1-1.4); ABSOLUTE NEUT (AUTO) 2.4 10^3/uL (1.7-8.2); BASOPHILS % (AUTO) 1.4 % (0-2); EOSINOPHILS % (AUTO) 7.2 % (0-6); HEMATOCRIT 34.5 % (36.0-47.0); HEMOGLOBIN 11.3 g/dL (12.0-15.5); HGB HCT DIFFERENCE -0.6; LYMPHOCYTES % (AUTO) 44.1 % (13-45); MEAN CORPUSCULAR HEMOGLOBIN 27.7 pg (27.0-33.4); MEAN CORPUSCULAR HGB CONC 32.6 g/dL (32.0-36.0); MEAN CORPUSCULAR VOLUME 85 fl (80-97); MONOCYTES % (AUTO) 6.7 % (3-13); RED BLOOD COUNT 4.06 10^6/uL (3.72-5.28); RED CELL DISTRIBUTION WIDTH 14.9 % (11.5-14.0); SEGMENTED NEUTROPHILS % (AUTO) 40.6 % (42-78); WHITE BLOOD COUNT 5.9 10^3/uL (4.0-10.5)
[2017-01-31 12:17] LABS: ALANINE AMINOTRANSFERASE 36 U/L (9-52); ALBUMIN 3.7 g/dL (3.5-5.0); ALKALINE PHOSPHATASE 127 U/L (38-126); ANION GAP 16 (5-19); ASPARTATE AMINO TRANSFERASE 27 U/L (14-36); BILIRUBIN,DIRECT 0.4 mg/dL (0.0-0.4); BILIRUBIN,TOTAL 0.6 mg/dL (0.2-1.3); BLOOD UREA NITROGEN 21 mg/dL (7-20); CALCIUM 9.6 mg/dL (8.4-10.2); CARBON DIOXIDE 30 mmol/L (22-30); CHLORIDE 100 mmol/L (98-107); CREATINE KINASE 52 U/L (30-135); CREATININE RESULT 0.99 mg/dL (0.52-1.25); Direct HDL 41 mg/dL (>40); GLUCOSE 183 mg/dL (75-110); POTASSIUM 4.7 mmol/L (3.6-5.0); SODIUM 145.6 mmol/L (137-145); TOTAL PROTEIN 7.1 g/dL (6.3-8.2); TRIGLYCERIDES 175 mg/dL (<150)
[2017-01-31 12:28] LABS: DIRECT LDL 95 mg/dL (<100)
--- NOTE | 2017-01-31 14:19 | EKG REPORT ---
SEVERITY:- NORMAL ECG - SINUS RHYTHM : Confirmed by: Serg Ward MD 31-Jan-2017 14:18:16
== END ==
LOC: OD 10:47
PROVIDERS: ATTEND Obstetrics & Gynecology
DX: J18.9 Pneumonia, unspecified organism (principal); J90 Pleural effusion, not elsewhere classified; I49.9 Cardiac arrhythmia, unspecified; E11.9 Type 2 diabetes mellitus without complications; I10 Essential (primary) hypertension; E78.5 Hyperlipidemia, unspecified
CPT/HCPCS: 36415; 71020; 80053; 80061; 82550; 84443; 85025; 93005; 93010

== ENCOUNTER 2017-09-10 09:43 | Emergency (ER) | payer MEDICARE, MEDICAID ==
[2017-09-10] MEDS ORDERED: NORMAL SALINE 1000 ML 1,000 ML IV ONE ×2 (10:33→11:57)
--- NOTE | 2017-09-10 10:34 | ER Document Report ---
ED Medical Screen (RME) - General Chief Complaint: Cough Stated Complaint: COUGH Time Seen by Provider: 09/10/17 10:32 Notes: Patient reports approximately 1 week of cough congestion fever sweats sore throat and generalized malaise. TRAVEL OUTSIDE OF THE [place] IN LAST 30 DAYS: No - Related Data Allergies/Adverse Reactions: Cephalosporins Allergy (Verified 09/10/17 09:47) Hives ciprofloxacin [Ciprofloxacin] Allergy (Verified 09/10/17 09:47) clindamycin [Clindamycin] Allergy (Verified 09/10/17 09:47) Hives Penicillins Allergy (Verified 09/10/17 09:47) Hives Home Medications: Current Home Medications Dicyclomine HCl 2 cap PO TID 09/10/17 [History] Metformin HCl [Metformin HCl] 1 tab PO BID 09/10/17 [History] Past Medical History - Past Medical History Cardiac Medical History: Reports: Hx Hypertension Denies: Hx Congestive Heart Failure, Hx DVT, Hx Heart Attack, Hx Hypercholesterolemia, Hx Pulmonary Embolism Pulmonary Medical History: Reports: Hx Sleep Apnea - Possible sleep apnea, but no formal testing as of yet. Denies: Hx Asthma, Hx COPD Neurological Medical History: Denies: Hx Seizures Endocrine Medical History: Reports: Hx Diabetes Mellitus Type 2. Denies: Hx Diabetes Mellitus Type 1, Hx Hyperthyroidism, Hx Hypothyroidism Renal/ Medical History: Denies: Hx Peritoneal Dialysis GI Medical History: Denies: Hx Cirrhosis, Hx Gastroesophageal Reflux Disease, Hx Hepatitis Musculoskeltal Medical History: Reports Hx Arthritis Psychiatric Medical History: Reports: Hx Depression Infectious Medical History: Denies: Hx C-Diff, Hx Hepatitis, Hx MRSA Past Surgical History: Reports: Hx Appendectomy, Hx Cholecystectomy, Hx Hysterectomy, Hx Orthopedic Surgery - back x 15 times, Hx Tonsillectomy - Immunizations Hx Diphtheria, Pertussis, Tetanus Vaccination: No - unsure Physical Exam - Vital signs Vitals: Temp Pulse Resp BP Pulse Ox 98.3 F 129 H 20 150/93 H 99 09/10/17 09:48 09/10/17 09:48 09/10/17 09:48 09/10/17 09:48 09/10/17 09:48 Course - Vital Signs Vital signs: Temp Pulse Resp BP Pulse Ox 98.3 F 129 H 20 150/93 H 99 09/10/17 09:48 09/10/17 09:48 09/10/17 09:48 09/10/17 09:48 09/10/17 09:48
[2017-09-10 11:11] LABS: APPEARANCE,URINE CLEAR; BILIRUBIN,URINE NEGATIVE (NEGATIVE); GLUCOSE, URINE NEGATIVE (NEGATIVE); KETONES,URINE NEGATIVE (NEGATIVE); LEUKOCYTE ESTERASE,URINE NEGATIVE (NEGATIVE); NITRITE,URINE NEGATIVE (NEGATIVE); PROTEIN,URINE NEGATIVE (NEGATIVE); URINE SPECIFIC GRAVITY 1.016; UROBILINOGEN,URINE NEGATIVE mg/dL (<2.0)
--- NOTE | 2017-09-10 11:28 | RADIOLOGY REPORT (SQ) ---
EXAM DESCRIPTION: CHEST PA/LAT COMPLETED DATE/TIME: 09/10/2017 11:18 am REASON FOR STUDY: cough/sob COMPARISON: 01/16/2017 EXAM PARAMETERS: NUMBER OF VIEWS: two views TECHNIQUE: Digital Frontal and Lateral radiographic views of the chest acquired. RADIATION DOSE: NA LIMITATIONS: none FINDINGS: LUNGS AND PLEURA: There is minimal linear atelectasis in the right mid lung. There is no infiltrate or effusion. There is no mass MEDIASTINUM AND HILAR STRUCTURES: No masses or contour abnormalities. HEART AND VASCULAR STRUCTURES: Heart normal size. No evidence for failure. BONES: No acute findings. HARDWARE: Rods are present in thoracolumbar spine. OTHER: No other significant finding. IMPRESSION: NO SIGNIFICANT RADIOGRAPHIC FINDING IN THE CHEST. TECHNICAL DOCUMENTATION: JOB ID: [id number] [employer]- All Rights Reserved
[2017-09-10 11:29] LABS: ABSOLUTE BASOPHILS # (AUTO) 0.1 10^3/uL (0.0-0.2); ABSOLUTE EOSINOPHILS # (AUTO) 0.8 10^3/uL (0.0-0.6); ABSOLUTE LYMPHOCYTES (AUTO) 3.3 10^3/uL (0.5-4.7); ABSOLUTE MONOCYTES (AUTO) 0.8 10^3/uL (0.1-1.4); ABSOLUTE NEUT (AUTO) 6.6 10^3/uL (1.7-8.2); BASOPHILS % (AUTO) 1.1 % (0-2); EOSINOPHILS % (AUTO) 7.1 % (0-6); HEMATOCRIT 40.1 % (36.0-47.0); HEMOGLOBIN 13.1 g/dL (12.0-15.5); HGB HCT DIFFERENCE -0.8; LYMPHOCYTES % (AUTO) 28.7 % (13-45); MEAN CORPUSCULAR HEMOGLOBIN 27.5 pg (27.0-33.4); MEAN CORPUSCULAR HGB CONC 32.8 g/dL (32.0-36.0); MEAN CORPUSCULAR VOLUME 84 fl (80-97); MONOCYTES % (AUTO) 6.7 % (3-13); RED BLOOD COUNT 4.77 10^6/uL (3.72-5.28); RED CELL DISTRIBUTION WIDTH 14.4 % (11.5-14.0); SEGMENTED NEUTROPHILS % (AUTO) 56.4 % (42-78); WHITE BLOOD COUNT 11.6 10^3/uL (4.0-10.5)
[2017-09-10 11:33] LABS: VENOUS BLOOD BASE EXCESS 2.3 mmol/L; VENOUS BLOOD HCO3 28.9 mmol/L (20-32); VENOUS BLOOD PH 7.36 (7.30-7.42)
--- NOTE | 2017-09-10 11:40 | ER Document Report ---
ED Respiratory Problem - General Chief Complaint: Cough Stated Complaint: COUGH Time Seen by Provider: 09/10/17 10:32 Notes: The patient is a 57-year-old female, past medical history prior pneumonia with effusions that required chest tube drainage, presents with several days of a dry cough and low back pain when she coughs. She denies fevers, hemoptysis, headache, rash, chest pain, leg swelling, nausea, vomiting, change in bowel or bladder, saddle anesthesia or difficulty walking. TRAVEL OUTSIDE OF THE [place] IN LAST 30 DAYS: No - Related Data Allergies/Adverse Reactions: Cephalosporins Allergy (Verified 09/10/17 09:47) Hives ciprofloxacin [Ciprofloxacin] Allergy (Verified 09/10/17 09:47) clindamycin [Clindamycin] Allergy (Verified 09/10/17 09:47) Hives Penicillins Allergy (Verified 09/10/17 09:47) Hives Home Medications: Current Home Medications Dicyclomine HCl 2 cap PO TID 09/10/17 [History] Metformin HCl [Metformin HCl] 1 tab PO BID 09/10/17 [History] Past Medical History - General Information source: Patient - Social History Smoking Status: Never Smoker Frequency of alcohol use: Rare Drug Abuse: None Family History: CAD, Hypertension, Other - Parkinson's Patient has suicidal ideation: No Patient has homicidal ideation: No - Past Medical History Cardiac Medical History: Reports: Hx Hypertension Denies: Hx Congestive Heart Failure, Hx DVT, Hx Heart Attack, Hx Hypercholesterolemia, Hx Pulmonary Embolism Pulmonary Medical History: Reports: Hx Sleep Apnea - Possible sleep apnea, but no formal testing as of yet. Denies: Hx Asthma, Hx COPD Neurological Medical History: Denies: Hx Seizures Endocrine Medical History: Reports: Hx Diabetes Mellitus Type 2. Denies: Hx Diabetes Mellitus Type 1, Hx Hyperthyroidism, Hx Hypothyroidism Renal/ Medical History: Denies: Hx Peritoneal Dialysis GI Medical History: Denies: Hx Cirrhosis, Hx Gastroesophageal Reflux Disease, Hx Hepatitis Musculoskeltal Medical History: Reports Hx Arthritis Psychiatric Medical History: Reports: Hx Depression Infectious Medical History: Denies: Hx C-Diff, Hx Hepatitis, Hx MRSA Past Surgical History: Reports: Hx Appendectomy, Hx Cholecystectomy, Hx Hysterectomy, Hx Orthopedic Surgery - back x 15 times, Hx Tonsillectomy - Immunizations Hx Diphtheria, Pertussis, Tetanus Vaccination: No - unsure Hx Pneumococcal Vaccination: 10/22/12 Review of Systems - Review of Systems Notes: REVIEW OF SYSTEMS: CONSTITUTIONAL: -fevers, -chills EENT: -eye pain, -difficulty swallowing, -nasal congestion CARDIOVASCULAR:-chest pain, -syncope. RESPIRATORY: +cough, -SOB GASTROINTESTINAL: -abdominal pain, - nausea, -vomiting, -diarrhea GENITOURINARY: -dysuria, -hematuria MUSCULOSKELETAL: +back pain, -neck pain SKIN: -rash or skin lesions. HEMATOLOGIC: -easy bruising or bleeding. LYMPHATIC: -swollen, enlarged glands. NEUROLOGICAL: -altered mental status or loss of consciousness, -headache, - neurologic symptoms PSYCHIATRIC: -anxiety, -depression. ALL OTHER SYSTEMS REVIEWED AND NEGATIVE. Physical Exam - Vital signs Vitals: Temp Pulse Resp BP Pulse Ox 98.3 F 129 H 20 150/93 H 99 09/10/17 09:48 09/10/17 09:48 09/10/17 09:48 09/10/17 09:48 09/10/17 09:48 - Notes Notes: PHYSICAL EXAMINATION: GENERAL: Well-appearing, well-nourished and in no acute distress. HEAD: Atraumatic, normocephalic. EYES: Pupils equal round and reactive to light, extraocular movements intact, sclera anicteric, conjunctiva are normal. ENT: nares patent, oropharynx clear without exudates. Moist mucous membranes. NECK: Normal range of motion, supple without lymphadenopathy LUNGS: Breath sounds clear to auscultation bilaterally and equal. No wheezes rales or rhonchi. HEART: Tachycardia, regular rhythm. ABDOMEN: Soft, nontender, normoactive bowel sounds. No guarding, no rebound. No masses appreciated. EXTREMITIES: Normal range of motion, no pitting or edema. No cyanosis. NEUROLOGICAL: Cranial nerves grossly intact. Normal speech, normal gait. Normal sensory and motor exams. PSYCH: Normal mood, normal affect. SKIN: Warm, Dry, normal turgor, no rashes or lesions noted. Course - Re-evaluation Re-evalutation: Patient appears well and is in no respiratory distress. Due to her tachycardia and shortness of breath, d-dimer was sent, which was elevated. However her CTA did not show any evidence of pulmonary embolism and her effusion has cleared up. She initially had a lactate of 3.3, but no signs of infection, including negative flu swabs. She received 2 L normal saline and her tachycardia improved. Patient has evidence of URI and instructed her about symptomatically treatment. Patient given very strict return precautions and she understands. - Vital Signs Vital signs: Temp Pulse Resp BP Pulse Ox 98.3 F 129 H 20 106/53 L 91 L 09/10/17 09:48 09/10/17 09:48 09/10/17 15:00 09/10/17 14:00 09/10/17 15:00 - Laboratory Result Diagrams: 09/10/17 10:55 09/10/17 10:55 Laboratory results interpreted by me: 09/10/17 09/10/17 09/10/17 10:55 10:55 10:55 WBC 11.6 H RDW 14.4 H Eosinophils % 7.1 H Absolute Eosinophils 0.8 H D-Dimer BUN 33 H Creatinine 1.32 H Est GFR ( Amer) 50 L Est GFR (Non-Af Amer) 41 L Glucose 238 H Lactic Acid 3.3 H Direct Bilirubin 0.5 H AST 64 H ALT 56 H 09/10/17 10:55 WBC RDW Eosinophils % Absolute Eosinophils D-Dimer 1.22 H BUN Creatinine Est GFR ( Amer) Est GFR (Non-Af Amer) Glucose Lactic Acid Direct Bilirubin AST ALT - Diagnostic Test Radiology reviewed: Image reviewed, Reports reviewed Radiology results interpreted by me: CXR: NAD CTA Chest: NAD - EKG Interpretation by Me EKG shows normal: Sinus rhythm, [place], Intervals, QRS Complexes, ST-T Waves Rate: Tachycardia When compared to previous EKG there are: No significant change Discharge - Discharge Clinical Impression: Cough Condition: Stable Disposition: HOME, SELF-CARE Additional Instructions: BRONCHITIS: You have acute bronchitis. This disease is an infection or inflammation of the air passageways in your lungs. Symptoms usually include cough, low grade fever, shortness of breath, and wheezing. The cough usually persists for a couple of weeks. Most cases of bronchitis get better without antibiotics. We prescribe antibiotics when we believe bacteria are damaging your airways, or if there's high risk the bronchitis will worsen into pneumonia. Increase your fluid intake. A cool mist humidifier may make your lungs more comfortable. An expectorant (cough medicine that loosens phlegm) can help. If you smoke, STOP!!! Recovery from bronchitis can be somewhat slow, but you should see improvement within a day or two. Repeated episodes of bronchitis may result in lung damage -- for example, chronic bronchitis, recurrent pneumonias, or emphysema. Call the doctor if you develop increasing fever, shortness of breath, chest pain, bloody sputum, or otherwise worsen. If you have not improved at all after several days, contact the physician. USE OF ACETAMINOPHEN (Tylenol): Acetaminophen may be taken for pain relief or fever control. It's much safer than aspirin, offering a wider range of "safe" dosages. It is safe during . Some brand names are Tylenol, Panadol, Datril, Anacin 3, Tempra, and Liquiprin. Acetaminophen can be repeated every four hours. The following are maximum recommended dosages: >89 pounds or adults 650 mg to 900 mg Acetaminophen can be repeated every four hours. Maximum dose not to exceed 4000 mg a day. SMOKING: If you smoke, you should stop smoking. The tar and chemicals in cigarette smoke are harmful. Smoking has been shown to cause: emphysema chronic bronchitis lung cancer mouth and throat cancer stomach and pancreas cancer premature aging defects In addition, smoking increases ear and lung infections in children of smokers. FOLLOW-UP CARE: If you have been referred to a physician for follow-up care, call the physician s office for an appointment as you were instructed or within the next two days. If you experience worsening or a significant change in your symptoms, notify the physician immediately or return to the Emergency Department at any time for re-evaluation. Prescriptions: Acetic Acid [Acetic Acid 5% Soln 500 ml] 5 applic TOP Q6 #1 bottle Albuterol Sulfate [Proair HFA Inhalation Aerosol 8.5 gm MDI] 2 puff IH Q4H PRN # 1 mdi PRN Reason: Forms: Parent Work Note Referrals: JC BAH MD [Primary Care Provider] - Follow up as needed
[2017-09-10 11:51] LABS: ALANINE AMINOTRANSFERASE 56 U/L (9-52); ALBUMIN 4.5 g/dL (3.5-5.0); ALKALINE PHOSPHATASE 124 U/L (38-126); ASPARTATE AMINO TRANSFERASE 64 U/L (14-36); BILIRUBIN,DIRECT 0.5 mg/dL (0.0-0.4); BILIRUBIN,TOTAL 0.8 mg/dL (0.2-1.3); BLOOD UREA NITROGEN 33 mg/dL (7-20); CALCIUM 9.8 mg/dL (8.4-10.2); CHLORIDE 98 mmol/L (98-107); CREATININE RESULT 1.32 mg/dL (0.52-1.25); GLUCOSE 238 mg/dL (75-110); SODIUM 142.6 mmol/L (137-145); TOTAL PROTEIN 7.9 g/dL (6.3-8.2)
[2017-09-10 12:27] LABS: ANION GAP 18 (5-19); CARBON DIOXIDE 27 mmol/L (22-30); POTASSIUM 4.2 mmol/L (3.6-5.0)
[2017-09-10] MEDS ORDERED: ONDANSETRON HCL INJ/PF 4 MG/2 ML SDV IV ONE (13:44)
--- NOTE | 2017-09-10 15:01 | RADIOLOGY REPORT (SQ) ---
EXAM DESCRIPTION: CTA CHEST COMPLETED DATE/TIME: 09/10/2017 2:47 pm REASON FOR STUDY: tachycardia, SOB, elevated d-dimer COMPARISON: CT chest 01/17/2017, CT chest 01/18/2017 Two-view chest 01/31/2017, 09/10/2017 TECHNIQUE: CT scan of the chest performed using helical scanning technique with dynamic intravenous contrast injection. Images reviewed with lung, soft tissue and bone windows. Reconstructed coronal and sagittal MPR images reviewed. Additional 3 dimensional post-processing performed to develop Maximal Intensity Projection images (NM P). All images stored on PACS. All CT scanners at this facility use dose modulation, iterative reconstruction, and/or weight based d osing when appropriate to reduce radiation dose to as low as reasonably achievable (ALARA). [facility]: Dose Right [facility]: CareDose [facility]: Dose Right [facility]: Teradose 4D [facility]: Eyeview CONTRAST TYPE AND DOSE: 76 mL Isovue 370- low osmolar. Contrast bolus adequate for pulmonary arteries and aorta. RENAL FUNCTION: Creatinine 1.3 RADIATION DOSE: 19.5 mGy . LIMITATIONS: None. FINDINGS: LUNGS AND PLEURA: No masses, infiltrates, pneumothorax. No pleural effusions, calcificati ons. AORTA AND GREAT VESSELS: No aneurysm. No dissection. Left vertebral artery originates directly off the aortic arch, an anatomic variant. HEART: No pericardial effusion. No significant coronary artery calcifications. PULMONARY ARTERIES: No emboli visualized in the main pulmonary arteries or the segmental branches. HILAR AND MEDIASTINAL STRUCTURES: No identified masses or abnormal nodes. HARDWARE: None in the chest. UPPER ABDOMEN: Small hiatal hernia. Post cholecystectomy. Lower thoracic and upper Lumbar fusion triana rdware at the bottom edge of the field of view. THYROID AND OTHER SOFT TISSUES: No masses. No adenopathy. BONES: No acute or significant finding. 3D MIPS: Confirm above findings. OTHER: No other significant finding. IMPRESSION: No CT angio evidence of acute pulmonary emboli or thoracic aortic dissection. COMMENT: Quality ID # [id number]: Final reports with documentation of one or more dose reduction techniques (e.g., Automated exposure control, adjustment of the mA and/or kV according to patient size, use of iterative reconstruction technique) TECHNICAL DOCUMENTATION: JOB ID: [id number] [employer]- All Rights Reserved
[2017-09-10 15:21] VITALS: BP 106/53
--- NOTE | 2017-09-10 16:56 | EKG REPORT ---
SEVERITY:- OTHERWISE NORMAL ECG - SINUS TACHYCARDIA : Confirmed by: Tina Abraham 10-Sep-2017 16:56:23
== END 2017-09-10 16:02 | disposition home or self-care (01) ==
LOC: ER 09:43
DX: R05 Cough (principal); M54.5 Low back pain; I10 Essential (primary) hypertension; E11.9 Type 2 diabetes mellitus without complications; Z88.0 Allergy status to penicillin; Z88.3 Allergy status to other anti-infective agents; Z90.49 Acquired absence of other specified parts of digestive tract; Z90.710 Acquired absence of both cervix and uterus
CPT/HCPCS: 93005; 99284; 96361; 96374; 36415; 87040; 87086; 87205; 85025; 80053; 81001; 85379; 82803; 83605; 87804; 71020; 71275; 93010; J2405; J7030; 87070

== ENCOUNTER 2017-10-14 18:44 | Emergency (ER) | payer OTHER, MEDICARE, MEDICAID ==
[2017-10-14 18:57] VITALS: BP 118/90
[2017-10-14] MEDS ORDERED: OXYCODONE-ACETAMINOPHEN 5-325 MG TABLET PO ONE (19:08)
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
== END 2017-10-14 19:55 | disposition home or self-care (01) ==
LOC: ER 18:44
DX: M54.2 Cervicalgia (principal); M54.6 Pain in thoracic spine; M54.5 Low back pain; V87.7XXA Person injured in collision between other specified motor vehicles (traffic), initial encounter
CPT/HCPCS: 72050; 99284

== ENCOUNTER 2019-11-06 11:03 | Day surgery (SDC) | payer MEDICARE, MEDICAID ==
[2019-10-27 12:35] LABS: ABSOLUTE BASOPHILS # (AUTO) 0.1 10^3/uL (0.0-0.2); ABSOLUTE EOSINOPHILS # (AUTO) 0.4 10^3/uL (0.0-0.6); ABSOLUTE LYMPHOCYTES (AUTO) 3.5 10^3/uL (0.5-4.7); ABSOLUTE MONOCYTES (AUTO) 0.4 10^3/uL (0.1-1.4); ABSOLUTE NEUT (AUTO) 6.4 10^3/uL (1.7-8.2); BASOPHILS % (AUTO) 0.9 % (0-2); EOSINOPHILS % (AUTO) 3.7 % (0-6); HEMATOCRIT 39.6 % (36.0-47.0); HEMOGLOBIN 13.1 g/dL (12.0-15.5); LYMPHOCYTES % (AUTO) 32.7 % (13-45); MEAN CORPUSCULAR HEMOGLOBIN 27.8 pg (27.0-33.4); MEAN CORPUSCULAR HGB CONC 33.1 g/dL (32.0-36.0); MEAN CORPUSCULAR VOLUME 84 fl (80-97); PLATELET COUNT 280 10^3/uL (150-450); RED BLOOD COUNT 4.71 10^6/uL (3.72-5.28); RED CELL DISTRIBUTION WIDTH 14.4 % (11.5-14.0); SEGMENTED NEUTROPHILS % (AUTO) 58.7 % (42-78); TOTAL CELLS COUNTED % (AUTO) 100 %; WHITE BLOOD COUNT 10.9 10^3/uL (4.0-10.5)
[2019-10-27 12:55] LABS: ANION GAP 14 (5-19); BLOOD UREA NITROGEN 22 mg/dL (7-20); CALCIUM 10.1 mg/dL (8.4-10.2); CARBON DIOXIDE 30 mmol/L (22-30); CHLORIDE 95 mmol/L (98-107); GLUCOSE 229 mg/dL (75-110); POTASSIUM 4.3 mmol/L (3.6-5.0)
--- NOTE | 2019-10-27 22:20 | EKG REPORT ---
SEVERITY:- BORDERLINE ECG - SINUS RHYTHM LVH BY VOLTAGE : Confirmed by: Tina Abraham 27-Oct-2019 22:19:39
[~2019-11-06 11:03] MED LIST: DEXAMETHASONE SOD PHOSPHATE INJ 4 MG/1 ML VIAL ONE; LACTATED RINGERS 1000 ML IV PRN; LIDOCAINE 0.5% INJ-PF (5 MG/ML) 50 ML SDV SUBCUT PRN; LIDOCAINE 2% INJ-PF (20 MG/ML) 2 ML AMPUL ONE; ONDANSETRON HCL INJ/PF 4 MG/2 ML SDV ONE; SUCCINYLCHOLINE CHLORIDE INJ 200 MG/10 ML VIAL ONE
[2019-11-06] MEDS ORDERED: SCOPOLAMINE HYDROBROMIDE 1.5 MG PATCH.TD72 ONE (12:15)
[2019-11-06] MEDS ORDERED: SCOPOLAMINE HYDROBROMIDE 1.5 MG PATCH.TD72 TD ONE (13:00)
[2019-11-06] MEDS ORDERED: FENTANYL CITRATE INJ/PF 100 MCG/2 ML AMPUL ONE (13:57)
[2019-11-06] MEDS ORDERED: LIDOCAINE 2%/EPINEPHRINE INJ 1.7 ML CARTRIDGE ONE ×2 (13:57→14:54)
[2019-11-06] MEDS ORDERED: MIDAZOLAM 2 MG/2 ML INJ ONE (13:57)
[2019-11-06] MEDS ORDERED: BUPIVACAINE HCL 0.5%/EPI 1:200000 INJ 1.8 ML CARTRIDGE ONE (13:57)
[2019-11-06] MEDS ORDERED: PROPOFOL INJ 200 MG/20 ML VIAL IV ONE (13:58)
[2019-11-06] MEDS ORDERED: MORPHINE SULFATE 10 MG/ML INJ IV PRN (14:32)
[2019-11-06] MEDS ORDERED: PROMETHAZINE HCL INJ 25 MG/1 ML VIAL IV PRN ×2 (14:32)
[2019-11-06] MEDS ORDERED: FENTANYL CITRATE INJ/PF 100 MCG/2 ML AMPUL IV PRN ×3 (14:32)
[2019-11-06] MEDS ORDERED: MEPERIDINE HCL/PF INJ 25 MG/1 ML DISP.SYRIN IV PRN (14:32)
[2019-11-06] MEDS ORDERED: DIPHENHYDRAMINE HCL 50 MG/ML VIAL IV PRN (14:32)
--- NOTE | 2019-11-06 15:13 | Operative Report ---
Operative Report DATE OF SURGERY: 11/06/19 PREOPERATIVE DIAGNOSIS: Dental caries POSTOPERATIVE DIAGNOSIS: Same OPERATION: Surgical removal of teeth numbers 2, 3, 4, 5, 6, 7, 8, 9, 10, 11, 12, 13, 14, 15, 30 and 31 with alveoloplasties of the upper left, upper right and lo wer right quadrants SURGEON: MANUELITO KIM ANESTHESIA: GA TISSUE REMOVED OR ALTERED: Teeth and bone which were discarded COMPLICATIONS: None ESTIMATED BLOOD LOSS: minimal INTRAOPERATIVE FINDINGS: Severe caries and nonrestorable teeth PROCEDURE: The patient was brought into operating room #4 and placed on the operating room table in supine position. General anesthesia was induced via a peripheral IV and continued utilizing endotracheal intubation. The patient was then prepped and draped in the usual fashion for an intraoral procedure. A total of 4 carpules of 2% Lidocaine with 1:100K Epi and 1 carpule of 0.5% Marcaine with 1:200K Epi were delivered to the planned surgical sites via both infiltration and nerve block. The oral cavity and oropharynx were suctioned and a moistened oropharyngeal throat pack was placed. A bite block was used throughout the procedure. Full thickness mucoperisteal flaps were elevated. Ostectomy was completed as needed. Teeth were sectioned as needed. Teeth were delivered with elevators and forceps. Alveoloplasties were completed using rongeurs and bone files. All sites debrided and irrigated. No sinus exposure noted. Mandible intact post op. HUSEYIN not visualized. Wounds reapproximated and sutured with 4-0 chromic gut. The oral cavity was suctioned and found to be free of debris. The throat pack was removed. The oropharynx was suctioned. Gauze packs were placed bilaterally to aid in continued hemastasis. The patient was awakened from general anesthesia, extubated in the operating room and taken to recovery in spontaneous breathing fashion.
[2019-11-06] MEDS: LORAZEPAM INJ 2 MG/1 ML VIAL ONE ×2 (15:20→15:30)
[2019-11-06] MEDS ORDERED: ACETAMINOPHEN 1,000 MG/100 ML RTUPB IV ONE (15:49)
[2019-11-06] MEDS ORDERED: OXYCODONE-ACETAMINOPHEN 5-325 MG TABLET ONE (16:11)
[2019-11-06 19:34] VITALS: BP 135/59
== END 2019-11-06 17:15 | disposition home or self-care (01) ==
LOC: OROUT 11:03
PROVIDERS: ATTEND Dentist Oral and Maxillofacial Surgery
DX: K02.9 Dental caries, unspecified (principal); K08.89 Other specified disorders of teeth and supporting structures; Z79.899 Other long term (current) drug therapy; I10 Essential (primary) hypertension; Z88.0 Allergy status to penicillin; E11.9 Type 2 diabetes mellitus without complications; E07.9 Disorder of thyroid, unspecified
CPT/HCPCS: 93005; 36415 ×2; 82962; 84132; 85025; 80048; 93010; 00170; 41899; 41874 ×3; J2250; J3490 ×3; J1100; J3010; A9270 ×2; J2060; J0330; J2405; J2704; J0131; 170

== ENCOUNTER 2019-11-16 23:37 | Emergency (ER) | payer MEDICARE, MEDICAID ==
[2019-11-16] MEDS ORDERED: DIPHENHYDRAMINE HCL 25 MG CAPSULE PO ONE (23:58)
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
--- NOTE | 2019-11-17 02:58 | ER Document Report ---
ED General - General Chief Complaint: Anxiety Stated Complaint: ANXIETY Time Seen by Provider: 11/16/19 23:54 Primary Care Provider: SANTA STEPHENSON PA [Primary Care Provider] - Follow up in 3-5 days Mode of Arrival: Medic Notes: Patient is a 59-year-old female who presents to the emergency department with a chief complaint of anxiety and shortness of breath. Patient states that she has been under a great deal of stress, as her this past July and her nephew singly committed suicide. She also states that since [facility] Brice today, she felt very overwhelmed because she "loved Stanford Brice." Patient has a history of diabetes, hyperlipidemia and back surgery. Patient admits to a cough that she has had for the past 3 days. TRAVEL OUTSIDE OF THE [place] IN LAST 30 DAYS: No - Related Data Allergies/Adverse Reactions: Cephalosporins Allergy (Verified 10/14/17 18:47) Hives ciprofloxacin [Ciprofloxacin] Allergy (Verified 10/14/17 18:47) clindamycin [Clindamycin] Allergy (Verified 10/14/17 18:47) Hives Penicillins Allergy (Verified 10/14/17 18:47) Hives pravastatin Allergy (Verified 10/27/19 10:21) Past Medical History - General Information source: Patient - Social History Smoking Status: Never Smoker Frequency of alcohol use: None Family History: CAD, Hypertension, Other - Parkinson's Patient has suicidal ideation: No Patient has homicidal ideation: No - Past Medical History Cardiac Medical History: Reports: Hx Hypertension Denies: Hx Congestive Heart Failure, Hx Coronary Artery Disease, Hx Heart Attack, Hx Hypercholesterolemia Pulmonary Medical History: Reports: Hx Sleep Apnea - Possible sleep apnea, but no formal testing as of yet. Denies: Hx Asthma, Hx Bronchitis, Hx COPD, Hx Pneumonia Neurological Medical History: Denies: Hx Cerebrovascular Accident, Hx Seizures Endocrine Medical History: Reports: Hx Diabetes Mellitus Type 2. Denies: Hx Diabetes Mellitus Type 1 Renal/ Medical History: Denies: Hx Peritoneal Dialysis GI Medical History: Denies: Hx Gastroesophageal Reflux Disease Musculoskeletal Medical History: Reports Hx Arthritis Psychiatric Medical History: Reports: Hx Depression Past Surgical History: Reports: Hx Appendectomy, Hx Cholecystectomy, Hx Hysterectomy, Hx Orthopedic Surgery - back x 15 times, Hx Tonsillectomy - Immunizations Hx Diphtheria, Pertussis, Tetanus Vaccination: No - unsure Hx Pneumococcal Vaccination: 10/22/12 Review of Systems - Review of Systems Notes: REVIEW OF SYSTEMS: CONSTITUTIONAL : Denies recent illness. Denies recent unintentional weight loss. Denies fever, chills, or sweats. EENT: Denies eye, ear, throat, or mouth pain, discharge, or symptoms. See HPI. CARDIOVASCULAR: Denies chest pain. RESPIRATORY: See HPI. GASTROINTESTINAL: Denies nausea, vomiting, and diarrhea. Denies abdominal pain. Denies constipation. GENITOURINARY: Denies difficulty urinating, burning, blood in urine, urgency or frequency. MUSCULOSKELETAL: Denies neck and back pain. Denies joint pain or swelling. SKIN: Denies rash, itchiness, or lesions HEMATOLOGIC : Denies easy bruising or bleeding. LYMPHATIC: Denies swollen, painful, enlarged glands. NEUROLOGICAL: Denies no numbness or tingling denies weakness. Denies headache. Denies altered mental status. Denies alteration in speech. PSYCHIATRIC: See HPI. All other systems reviewed and negative. Physical Exam - Vital signs Vitals: Temp Pulse Resp BP Pulse Ox 98.1 F 100 20 149/85 H 97 11/16/19 23:54 11/16/19 23:54 11/16/19 23:54 11/16/19 23:54 11/16/19 23:54 - Notes Notes: PHYSICAL EXAMINATION: GENERAL: Appears chronically ill, obese, no acute distress. HEAD: Normocephalic, atraumatic. EYES: PERRL, conjunctiva normal, all extraocular movements intact, sclera nonicteric ENT: Moist mucous membranes. NECK: Supple, no noticeable swelling, redness, rash. Normal range of motion. LUNGS: Equal breath sounds bilaterally and clear to auscultation. No wheezes rales or rhonchi. CARDIOVASCULAR: S1-S2, regular rate, regular rhythm. Radial pulses 2+, normal. ABDOMEN: Normoactive bowel sounds. Soft, nontender, no guarding, no rebound tenderness, and no masses palpated. EXTREMITIES: Normal strength and range of motion, no pitting or edema. No cyanosis. NEUROLOGICAL: Moves all extremities upon command. Strength 5/5 in all extremities. PSYCH: Normal mood, normal affect. SKIN: Warm, dry. No rash, lesions, ulcerations noted. Normal skin turgor. Course - Re-evaluation Re-evalutation: 11/17/19 02:59 Patient states that she does feel a little bit better after receiving the Benadryl ordered in triage. Patient will be sent for a chest x-ray to rule out pneumonia. 11/17/19 03:50 Patient's chest x-ray is negative for pneumonia. No pneumothorax noted. At this time, patient is stable for discharge. She will be sent home with Tessalon Perles, Flonase, and Vistaril to help with her anxiety and manage her upper respiratory viral symptoms. Patient is going to follow-up with their primary care provider. She is in agreement with this plan. Follow-up precautions were given. Verbal discharge instructions were given to the patient. They verbalized understanding. They are stable for discharge. - Vital Signs Vital signs: Temp Pulse Resp BP Pulse Ox 97.7 F 92 15 159/93 H 95 11/17/19 04:06 11/17/19 04:06 11/17/19 04:06 11/17/19 04:06 11/17/19 04:06 Discharge - Discharge Clinical Impression: Anxiety, Upper respiratory infection, viral Condition: Stable Disposition: HOME, SELF-CARE Instructions: Anxiety ([facility]) Additional Instructions: You were seen today in the emergency department for anxiety and upper respiratory symptoms. You are being sent home with medications. Please take them as directed. Please follow-up with your primary care provider regards to this visit. Prescriptions: Benzonatate [Tessalon Perle 100 mg Capsule] 200 mg PO Q8HP PRN #40 cap PRN Reason: Fluticasone Propionate [Flonase Nasal [place] 50 Mcg/[place] 16 gm] 2 sprays NASL DAILY #1 inhaler Hydroxyzine Pamoate [Vistaril 25 mg Capsule] 25 mg PO DAILY #14 capsule Referrals: SANTA STEPHENSON PA [Primary Care Provider] - Follow up in 3-5 days
--- NOTE | 2019-11-17 03:32 | RADIOLOGY REPORT (SQ) ---
EXAM DESCRIPTION: XR CHEST 1 VIEW COMPLETED DATE/TME: 11/17/2019 02:55 CLINICAL HISTORY: 59 years, Female, cough COMPARISON: 09/10/2017 chest NUMBER OF VIEWS: 1 TECHNIQUE: Portable chest LIMITATIONS: None. FINDINGS: The heart size is normal. Osteopenia. Postsurgical changes of the spine. Lungs are clear. No pneumothorax IMPRESSION: No acute cardiopulmonary process copyright 2010 [employer]- All Rights Reserved
[2019-11-17] MEDS ORDERED: BENZONATATE 100 MG CAPSULE PO ONE (03:51)
[2019-11-17 04:07] VITALS: BP 159/93
== END 2019-11-17 04:07 | disposition home or self-care (01) ==
LOC: ER 23:37
DX: F41.9 Anxiety disorder, unspecified (principal); J06.9 Acute upper respiratory infection, unspecified; B97.89 Other viral agents as the cause of diseases classified elsewhere; R06.02 Shortness of breath; R05 Cough; E11.9 Type 2 diabetes mellitus without complications; I10 Essential (primary) hypertension; Z63.4 Disappearance and death of family member; Z88.1 Allergy status to other antibiotic agents; Z88.0 Allergy status to penicillin; Z88.8 Allergy status to other drugs, medicaments and biological substances
CPT/HCPCS: 99283; 71045; A9270 ×2

== ENCOUNTER 2019-11-24 07:23 | Day surgery (SDC) | payer MEDICARE, MEDICAID ==
[~2019-11-24 07:23] MED LIST changes: -DEXAMETHASONE SOD PHOSPHATE INJ 4 MG/1 ML VIAL ONE; -LACTATED RINGERS 1000 ML IV PRN; -LIDOCAINE 0.5% INJ-PF (5 MG/ML) 50 ML SDV SUBCUT PRN; -LIDOCAINE 2% INJ-PF (20 MG/ML) 2 ML AMPUL ONE; -ONDANSETRON HCL INJ/PF 4 MG/2 ML SDV ONE; -SUCCINYLCHOLINE CHLORIDE INJ 200 MG/10 ML VIAL ONE; +SULFAMETHOXAZOLE/TRIMETHOPRIM 800-160 MG TABLET PO PRN
[2019-11-24 07:56] LABS: APPEARANCE,URINE CLEAR; BILIRUBIN,URINE NEGATIVE (NEGATIVE); COLOR,URINE YELLOW; GLUCOSE, URINE NEGATIVE (NEGATIVE); KETONES,URINE NEGATIVE (NEGATIVE); LEUKOCYTE ESTERASE,URINE NEGATIVE (NEGATIVE); NITRITE,URINE NEGATIVE (NEGATIVE); PROTEIN,URINE NEGATIVE (NEGATIVE); UROBILINOGEN,URINE NEGATIVE mg/dL (<2.0)
[2019-11-24] MEDS ORDERED: SULFAMETHOXAZOLE/TRIMETHOPRIM 800-160 MG TABLET ONE (08:11)
[2019-11-24 08:28] LABS: HEMATOCRIT 34.2 % (36.0-47.0); HEMOGLOBIN 11.4 g/dL (12.0-15.5); MEAN CORPUSCULAR HGB CONC 33.4 g/dL (32.0-36.0); MEAN CORPUSCULAR VOLUME 84 fl (80-97); PLATELET COUNT 292 10^3/uL (150-450); RED BLOOD COUNT 4.08 10^6/uL (3.72-5.28); WHITE BLOOD COUNT 8.6 10^3/uL (4.0-10.5)
[2019-11-24] MEDS ORDERED: BUPIVACAINE HCL 0.5 % INJ/PF 30 ML SDV ONE (08:33)
[2019-11-24] MEDS ORDERED: LIDOCAINE 1%/EPINEPHRINE INJ 20 ML VIAL ONE (08:34)
[2019-11-24 08:54] LABS: ANION GAP 9 (5-19); BLOOD UREA NITROGEN 16 mg/dL (7-20); CALCIUM 9.3 mg/dL (8.4-10.2); CARBON DIOXIDE 26 mmol/L (22-30); CHLORIDE 102 mmol/L (98-107); GLUCOSE 139 mg/dL (75-110); POTASSIUM 4.2 mmol/L (3.6-5.0)
[2019-11-24] MEDS ORDERED: SCOPOLAMINE HYDROBROMIDE 1.5 MG PATCH.TD72 ONE (08:55)
[2019-11-24] MEDS ORDERED: PROPOFOL INJ 200 MG/20 ML VIAL IV ONE (08:59)
[2019-11-24] MEDS ORDERED: ONDANSETRON HCL INJ/PF 4 MG/2 ML SDV ONE (08:59)
[2019-11-24] MEDS ORDERED: MIDAZOLAM 2 MG/2 ML INJ ONE (08:59)
[2019-11-24] MEDS ORDERED: FENTANYL CITRATE INJ/PF 100 MCG/2 ML AMPUL ONE (08:59)
[2019-11-24] MEDS ORDERED: LIDOCAINE 1%/EPINEPHRINE INJ 20 ML VIAL INJ ONE (09:45)
[2019-11-24] MEDS ORDERED: BUPIVACAINE HCL 0.5 % INJ/PF 30 ML SDV INJ ONE (09:45)
--- NOTE | 2019-11-24 10:17 | Operative Report ---
Operative Report DATE OF SURGERY: 11/24/19 PREOPERATIVE DIAGNOSIS: Left medial meniscal tear POSTOPERATIVE DIAGNOSIS: Left medial meniscal tear. Grade II-III chondromalacia the medial compartment. Intact ACL. Grade II chondromalacia lateral compartment. Intact lateral meniscus. 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 ESTIMATED BLOOD LOSS: Minimal PROCEDURE: With the patient in the supine position on the operating table left lower extremities prepped and draped in sterile fashion. The knee is insufflated with accommodation Marcaine, Xylocaine, and epinephrine. Subsequent medial lateral patella portals are created for the introduction of arthroscope and debridement instrumentation. Joint is examined in systematic fashion findings as above. Using combination of basket Thakkar, mechanical shaver, electric frequency ablation probe a partial medial meniscectomy was performed from approximately 8:00 to 12:00 on the face of the dial. The joint is again examined in systematic fashion with no new findings. Instrumentation was removed. Portals reapproximated using up to nylon. A sterile compressive dressing was applied. The patient is returned to the PACU in satisfactory condition.
--- NOTE | 2019-11-24 10:20 | Discharge Summary ---
Discharge Summary (SDC) - Discharge Final Diagnosis: Left medial meniscal tear Date of Surgery: 11/24/19 Discharge Date: 11/24/19 Condition: Good Treatment or Instructions: Activity as tolerated. Remove compressive wrap on Sunday. Underlying OpSite dressing can be left in place until you return to the office. You can shower once the compressive wrap is been removed but please do not immerse it in a tub. Prescriptions: Oxycodone HCl/Acetaminophen [Percocet 5-325 mg Tablet] 1 tab PO Q6 PRN #25 tab PRN Reason: Referrals: SANTA STEPHENSON PA [Primary Care Provider] - Discharge Diet: Regular Respiratory Treatments at Home: Deep Breathing/Coughing Discharge Activity: Activity As Tolerated, Balance Activity w/Rest, No tub bath Home Care Assistance: None Needed Report the Following to Your Physician Immediately: Shortness of Breath, Fever over 101 Degrees, Drainage-Foul Smelling
[2019-11-24] MEDS ORDERED: PROMETHAZINE HCL INJ 25 MG/1 ML VIAL IV PRN ×2 (10:30)
[2019-11-24] MEDS ORDERED: DIPHENHYDRAMINE HCL 50 MG/ML VIAL IV PRN (10:30)
[2019-11-24] MEDS ORDERED: MORPHINE SULFATE 10 MG/ML INJ IV PRN (10:30)
[2019-11-24] MEDS ORDERED: OXYCODONE-ACETAMINOPHEN 5-325 MG TABLET PO PRN ×3 (10:30→10:33)
[2019-11-24] MEDS ORDERED: FENTANYL CITRATE INJ/PF 100 MCG/2 ML AMPUL IV PRN ×3 (10:30)
[2019-11-24] MEDS ORDERED: MEPERIDINE HCL/PF INJ 25 MG/1 ML DISP.SYRIN IV PRN (10:30)
[2019-11-24 12:35] VITALS: BP 152/90
== END 2019-11-24 12:05 | disposition home or self-care (01) ==
LOC: OROUT 07:23
PROVIDERS: ATTEND Orthopaedic Surgery
DX: M22.42 Chondromalacia patellae, left knee (principal); M23.304 Other meniscus derangements, unspecified medial meniscus, left knee; M25.562 Pain in left knee; E11.9 Type 2 diabetes mellitus without complications; I10 Essential (primary) hypertension; Z79.899 Other long term (current) drug therapy; Z79.84 Long term (current) use of oral hypoglycemic drugs
CPT/HCPCS: 36415; 85027; 80048; 81001; 29881; J2250; J3490 ×2; J3010; A9270 ×2; J2405; J2704

== ENCOUNTER 2020-03-09 07:28 | Outpatient (CLI) | payer MEDICARE, MEDICAID ==
[~2020-03-09 07:28] MED LIST changes: +FERUMOXYTOL (ESRD) 510 MG/NS 100 ML IV PRN; +NORMAL SALINE 250 ML IV PRN; -SULFAMETHOXAZOLE/TRIMETHOPRIM 800-160 MG TABLET PO PRN
[2020-03-09 07:44] VITALS: BP 118/77
== END 2020-03-09 08:45 | disposition home or self-care (01) ==
LOC: II 07:28 → 5TH 07:31 → II 08:45
PROVIDERS: ATTEND Internal Medicine Hematology & Oncology
DX: D50.9 Iron deficiency anemia, unspecified (principal); K90.9 Intestinal malabsorption, unspecified
CPT/HCPCS: 96365; Q0139; J7050

== ENCOUNTER 2020-03-17 07:46 | Outpatient (CLI) | payer MEDICARE, MEDICAID ==
[2020-03-17 07:57] VITALS: BP 138/83
[2020-03-17] MEDS ORDERED: FERUMOXYTOL 510 MG in NORMAL SALINE 100 ML IV PRN (08:00)
[2020-03-17] MEDS ORDERED: NORMAL SALINE 250 ML IV PRN (08:00)
== END 2020-03-17 08:45 | disposition home or self-care (01) ==
LOC: II 07:46 → 5TH 08:08 → II 08:45
PROVIDERS: ATTEND Internal Medicine Hematology & Oncology
DX: D50.9 Iron deficiency anemia, unspecified (principal); K90.9 Intestinal malabsorption, unspecified
CPT/HCPCS: 96365; Q0138; J7050

== ENCOUNTER → 2020-04-27 | Outpatient (CLI) | payer MEDICARE, MEDICAID ==
--- NOTE | 2020-04-27 17:01 | RADIOLOGY REPORT (SQ) ---
EXAM DESCRIPTION: CHEST 2 VIEWS IMAGES COMPLETED DATE/TIME: 04/27/2020 4:53 pm REASON FOR STUDY: R05 COUGH COMPARISON: 11/17/2019 EXAM PARAMETERS: NUMBER OF VIEWS: two views TECHNIQUE: Digital Frontal and Lateral radiographic views of the chest acquired. RADIATION DOSE: NA LIMITATIONS: none FINDINGS: LUNGS AND PLEURA: No opacities, masses or pneumothorax. No pleural effusion. MEDIASTINUM AND HILAR STRUCTURES: No masses or contour abnormalities. HEART AND VASCULAR STRUCTURES: Heart normal size. No evidence for failure. BONES: No acute findings. HARDWARE: Spinal hardware OTHER: No other significant finding. IMPRESSION: NO ACUTE RADIOGRAPHIC FINDING IN THE CHEST. TECHNICAL DOCUMENTATION: JOB ID: [id number] 2010 [employer]- All Rights Reserved Reading location - IP/workstation name: [email or web address]
--- NOTE | 2020-04-27 18:27 | RADIOLOGY REPORT (SQ) ---
EXAM DESCRIPTION: VENOUS BILATERAL LOWER IMAGES COMPLETED DATE/TIME: 04/27/2020 5:53 pm REASON FOR STUDY: BLEV M79.605 PAIN IN LEFT LEG COMPARISON: None. TECHNIQUE: Dynamic and static ye scale and color images acquired of both lower extremity venous sy stems. Selected spectral images acquired with additional compression and augmentation maneuvers. Imag es stored on PACS. LIMITATIONS: None. FINDINGS: RIGHT LEG COMMON FEMORAL AND FEMORAL: Normal phasicity, compression and augmentation. No visualized echogenic m aterial on ye scale. No defects on color images. POPLITEAL: Normal compression and augmentation. No visualized echogenic material on ye scale. No de fects on color images. CALF VESSELS: Normal compression and augmentation. No visualized echogenic material on ye scale. No defects on color image. GSV AND SSV: Normal compression. No visualized echogenic material on ye scale. No defects on color images. ANY DEEP VENOUS INSUFFICIENCY: Not evaluated. ANY EVIDENCE OF POPLITEAL CYST: No. OTHER: No other significant finding. LEFT LEG COMMON FEMORAL AND FEMORAL: Normal phasicity, compression and augmentation. No visualized echogenic m aterial on ye scale. No defects on color images. POPLITEAL: Normal compression and augmentation. No visualized echogenic material on ye scale. No de fects on color images. CALF VESSELS: Normal compression and augmentation. No visualized echogenic material on ye scale. No defects on color images. GSV AND SSV: Normal compression. No visualized echogenic material on ye scale. No defects on color images. ANY DEEP VENOUS INSUFFICIENCY: Not evaluated. ANY EVIDENCE POPLITEAL CYST: No. OTHER: No other significant finding. IMPRESSION: NO EVIDENCE DVT OR SVT IN EITHER LEG. TECHNICAL DOCUMENTATION: JOB ID: [id number] 2010 [employer]- All Rights Reserved Reading location - IP/workstation name: [email or web address]
== END ==
LOC: SP 16:34
PROVIDERS: ATTEND Physician Assistant
DX: M79.605 Pain in left leg (principal)
CPT/HCPCS: 71046; 93970

== ENCOUNTER 2020-08-04 13:53 | Observation (INO) | payer MEDICARE, MEDICAID ==
--- NOTE | 2020-08-04 15:41 | ER Document Report ---
ED Medical Screen (RME) - General Chief Complaint: blood in stool Stated Complaint: BLOOD IN STOOL Time Seen by Provider: 08/04/20 15:21 Primary Care Provider: SANTA STEPHENSON PA [Primary Care Provider] - Follow up as needed TRAVEL OUTSIDE OF THE [place] IN LAST 30 DAYS: No - HPI Notes: 08/04/20 15:40 60-year-old female to the emergency department with complaints of rectal bleeding and abdominal pain that started 3 days ago and got significantly worse today. She states for the past 2 days she has had cramping abdominal pain with a little bit of bright red blood when she wipes. However today she had an episode of looser stool and then riki clots of blood by themselves bright red from her rectum. She states she had a colonoscopy several years ago. She states that she was told that she had irritable bowel syndrome and diverticulitis. She denies any nausea or vomiting. She denies any fevers or chills. She denies any chest pain, shortness of breath, syncope, lighthead edness. I performed a brief medical screening exam on the patient determined that the patient needs further evaluation and management by main side provider. I have placed initial orders to help expedite care. - Related Data Allergies/Adverse Reactions: Cephalosporins Allergy (Verified 08/04/20 15:21) Hives ciprofloxacin [Ciprofloxacin] Allergy (Verified 08/04/20 15:21) clindamycin [Clindamycin] Allergy (Verified 08/04/20 15:21) Hives Penicillins Allergy (Verified 08/04/20 15:21) Hives pravastatin Allergy (Verified 08/04/20 15:21) Past Medical History - Social History Frequency of alcohol use: Rare - Past Medical History Cardiac Medical History: Reports: Hx Hypertension Denies: Hx Congestive Heart Failure, Hx Coronary Artery Disease, Hx Heart Attack, Hx Hypercholesterolemia Pulmonary Medical History: Reports: Hx Sleep Apnea - Possible sleep apnea, but no formal testing as of yet. Denies: Hx Asthma, Hx Bronchitis, Hx COPD, Hx Pneumonia Neurological Medical History: Denies: Hx Cerebrovascular Accident, Hx Seizures Endocrine Medical History: Reports: Hx Diabetes Mellitus Type 2. Denies: Hx Diabetes Mellitus Type 1 Renal/ Medical History: Denies: Hx Peritoneal Dialysis GI Medical History: Denies: Hx Gastroesophageal Reflux Disease Musculoskeltal Medical History: Reports Hx Arthritis Psychiatric Medical History: Reports: Hx Depression Past Surgical History: Reports: Hx Appendectomy, Hx Cholecystectomy, Hx Hysterectomy, Hx Orthopedic Surgery - back x 15 times, keft knee, Hx Tonsillectomy - Immunizations Hx Diphtheria, Pertussis, Tetanus Vaccination: No - unsure Physical Exam - Vital signs Vitals: Temp Pulse Resp BP Pulse Ox 98.5 F 107 H 20 132/81 H 96 08/04/20 13:58 08/04/20 13:58 08/04/20 13:58 08/04/20 13:58 08/04/20 13:58 Course - Vital Signs Vital signs: Temp Pulse Resp BP Pulse Ox 98.5 F 107 H 20 132/81 H 96 08/04/20 13:58 08/04/20 13:58 08/04/20 13:58 08/04/20 13:58 08/04/20 13:58 Doctor's Discharge - Discharge Referrals: SANTA STEPHENSON PA [Primary Care Provider] - Follow up as needed
[2020-08-04 16:39] LABS: ABSOLUTE BASOPHILS # (AUTO) 0.1 10^3/uL (0.0-0.2); ABSOLUTE EOSINOPHILS # (AUTO) 0.4 10^3/uL (0.0-0.6); ABSOLUTE MONOCYTES (AUTO) 0.5 10^3/uL (0.1-1.4); ABSOLUTE NEUT (AUTO) 5.6 10^3/uL (1.7-8.2); BASOPHILS % (AUTO) 1.2 % (0-2); EOSINOPHILS % (AUTO) 3.7 % (0-6); HEMATOCRIT 42.4 % (36.0-47.0); HEMOGLOBIN 14.2 g/dL (12.0-15.5); LYMPHOCYTES % (AUTO) 37.4 % (13-45); MEAN CORPUSCULAR HEMOGLOBIN 29.3 pg (27.0-33.4); MEAN CORPUSCULAR HGB CONC 33.5 g/dL (32.0-36.0); MEAN CORPUSCULAR VOLUME 88 fl (80-97); MONOCYTES % (AUTO) 4.7 % (3-13); PLATELET COUNT 224 10^3/uL (150-450); RED BLOOD COUNT 4.85 10^6/uL (3.72-5.28); RED CELL DISTRIBUTION WIDTH 13.4 % (11.5-14.0); TOTAL CELLS COUNTED % (AUTO) 100 %; WHITE BLOOD COUNT 10.7 10^3/uL (4.0-10.5)
[2020-08-04 16:42] LABS: INTERNATIONAL RATION (INR) 0.96
[2020-08-04 16:43] LABS: PARTIAL THROMBOPLASTIN TIME 24.9 SEC (23.5-35.8)
[2020-08-04 16:57] LABS: ALBUMIN 4.6 g/dL (3.5-5.0); ALKALINE PHOSPHATASE 74 U/L (38-126); ANION GAP 16 (5-19); ASPARTATE AMINO TRANSFERASE 50 U/L (14-36); BILIRUBIN,DIRECT 0.4 mg/dL (0.0-0.4); BILIRUBIN,TOTAL 0.6 mg/dL (0.2-1.3); BLOOD UREA NITROGEN 36 mg/dL (7-20); CALCIUM 10.6 mg/dL (8.4-10.2); CARBON DIOXIDE 25 mmol/L (22-30); CHLORIDE 97 mmol/L (98-107); GLUCOSE 224 mg/dL (75-110); POTASSIUM 4.2 mmol/L (3.6-5.0); TOTAL PROTEIN 7.9 g/dL (6.3-8.2)
--- NOTE | 2020-08-04 18:42 | ER Document Report ---
ED General - General Chief Complaint: GI Bleeding Stated Complaint: BLOOD IN STOOL Time Seen by Provider: 08/04/20 15:21 Primary Care Provider: DAVID STEPHENSON PA [Primary Care Provider] - Follow up as needed TRAVEL OUTSIDE OF THE [place] IN LAST 30 DAYS: No - HPI Notes: Chief complaint: Left upper quadrant cramping and intermittent bright red blood with bowel movements History of present illness: 60-year-old female to the emergency department with complaints of rectal bleeding and abdominal pain that started 3 days ago and got significantly worse today. She states for the past 2 days she has had cramping abdominal pain with a little bit of bright red blood when she wipes. However today she had an episode of looser stool and then riki clots of blood by themselves bright red from her rectum. She states she had a colonoscopy several years ago. She states that she was told that she had irritable bowel syndrome and diverticulitis. She denies any nausea or vomiting. She denies any fevers or chills. She denies any chest pain, shortness of breath, syncope, lightheadedness. Patient is not on any type of anticoagulation. She is followed by David Stephenson MD with a history of hypertension and type 2 diabetes mellitus. - Related Data Allergies/Adverse Reactions: Cephalosporins Allergy (Verified 08/04/20 15:21) Hives ciprofloxacin [Ciprofloxacin] Allergy (Verified 08/04/20 15:21) clindamycin [Clindamycin] Allergy (Verified 08/04/20 15:21) Hives Penicillins Allergy (Verified 08/04/20 15:21) Hives pravastatin Allergy (Verified 08/04/20 15:21) Past Medical History - General Information source: Patient, Relative, [facility] Records - Social History Smoking Status: Never Smoker Chew tobacco use (# tins/day): No Frequency of alcohol use: None Drug Abuse: None Family History: CAD, Hypertension, Other - Parkinson's Patient has homicidal ideation: No - Past Medical History Cardiac Medical History: Reports: Hx Hypertension Denies: Hx Congestive Heart Failure, Hx Coronary Artery Disease, Hx Heart A ttack, Hx Hypercholesterolemia Pulmonary Medical History: Reports: Hx Sleep Apnea - Possible sleep apnea, but no formal testing as of yet. Denies: Hx Asthma, Hx Bronchitis, Hx COPD, Hx Pneumonia Neurological Medical History: Denies: Hx Cerebrovascular Accident, Hx Seizures Endocrine Medical History: Reports: Hx Diabetes Mellitus Type 2. Denies: Hx Diabetes Mellitus Type 1 Renal/ Medical History: Denies: Hx Peritoneal Dialysis GI Medical History: Denies: Hx Gastroesophageal Reflux Disease Musculoskeletal Medical History: Reports Hx Arthritis Psychiatric Medical History: Reports: Hx Depression Past Surgical History: Reports: Hx Appendectomy, Hx Cholecystectomy, Hx Hysterectomy, Hx Orthopedic Surgery - back x 15 times, keft knee, Hx Tonsillectomy - Immunizations Hx Diphtheria, Pertussis, Tetanus Vaccination: No - unsure Hx Pneumococcal Vaccination: 10/22/12 Review of Systems - Review of Systems Notes: Constitutional: Negative for fever. HENT: Negative for sore throat. Eyes: Negative for visual changes. Cardiovascular: Negative for chest pain. Respiratory: Negative for shortness of breath. Gastrointestinal: As per HPI. Genitourinary: Negative for dysuria. Musculoskeletal: Negative for back pain. Skin: Negative for rash. Neurological: Negative for headaches, focal weakness or numbness. 10 point ROS negative except as marked above and in HPI. Physical Exam - Vital signs Vitals: Temp Pulse Resp BP Pulse Ox 98.5 F 107 H 20 132/81 H 96 08/04/20 13:58 08/04/20 13:58 08/04/20 13:58 08/04/20 13:58 08/04/20 13:58 - Notes Notes: GENERAL: Female patient of approximately stated age appearing in no acute distress. SKIN: Good turgor no rashes. HEAD: Normocephalic atraumatic. EYES: PERRLA. EOMI. Conjunctivae and sclerae clear. EARS: CANALS AND TMS CLEAR. NOSE: CLEAR. MOUTH: Moist mucosa. Good dentition. No stridor or edema. No drooling. NECK: Supple. No masses or thyromegaly. No adenopathy. Carotids 2+ without bruits. No JVD. BACK: Symmetrical without tenderness. CHEST: Respirations unlabored. Breath sounds clear and symmetrical. HEART: Regular rhythm. No murmur gallop or rub. ABDOMEN: Mild tenderness left upper quadrant. Soft without masses, organomegaly or rebound. Bowel sounds normally active. No bruits. EXTREMITIES: No edema. No calf tenderness. Cap refill less than 1.5 seconds. Dorsalis pedis and posterior tibial pulses 3+ and symmetrical. NEUROLOGICAL: GCS 15. Alert and oriented x3. Normal gait. Fluent speech. Cranial nerves II through XII intact. Sensorimotor and cerebellar normal. Normal tone. PSYCHIATRIC: Appropriate affect. Course - Re-evaluation Re-evalutation: 08/04/20 21:02 IV normal saline. IV metronidazole. Hemoglobin stable. Vital signs are stable. Patient is moderately tender palpation left upper quadrant. Clinically I think she is bleeding due to diverticular disease probably has an acute diverticulitis. She is mildly dehydrated and her creatinine is up slightly from baseline. Findings discussed with the patient and she wishes to be admitted for observation at this time. Case was discussed with Dr. Omer Smith who has accepted her for care. Findings, clinical impression and plan of treatment have been discussed with patient/family. Understanding of current findings and recommendations has been acknowledged by them and there is agreement regarding disposition and follow-up. - Vital Signs Vital signs: Temp Pulse Resp BP Pulse Ox 98.5 F 107 H 20 132/81 H 96 08/04/20 13:58 08/04/20 13:58 08/04/20 13:58 08/04/20 13:58 08/04/20 13:58 - Laboratory Result Diagrams: 08/04/20 16:15 08/04/20 16:15 Laboratory results interpreted by me: 08/04/20 08/04/20 16:15 16:15 WBC 10.7 H Chloride 97 L BUN 36 H Creatinine 1.27 H Est GFR ( Amer) 52 L Est GFR (MDRD) Non-Af 43 L Glucose 224 H Calcium 10.6 H AST 50 H ALT 71 H - Diagnostic Test Radiology reviewed: Reports reviewed - Normal CT abdomen pelvis with contrast per radiologist. Discharge - Discharge Clinical Impression: Acute diverticulitis, Rectal bleeding, Dehydration, Acute kidney injury, Diabetes mellitus type 2 in obese Condition: Stable Disposition: ADMITTED OBSERVATION Admitting Provider: Luis (Hospitalist) Unit Admitted: Medical Floor Referrals: DAVDI STEPHENSON PA [Primary Care Provider] - Follow up as needed
--- NOTE | 2020-08-04 19:49 | RADIOLOGY REPORT (SQ) ---
EXAM DESCRIPTION: CT ABD/PELVIS WITH IV ONLY IMAGES COMPLETED DATE/TIME: 08/04/2020 7:24 pm REASON FOR STUDY: abd pain, rectal bleeding COMPARISON: 01/11/2017 TECHNIQUE: CT scan of the abdomen and pelvis performed using helical scanning technique with dynamic intravenous contrast injection. No oral contrast. Images reviewed with lung, soft tissue, and bone w indows. Reconstructed coronal and sagittal MPR images reviewed. Delayed images for evaluation of the urinary system also acquired. All images stored on PACS. All CT scanners at this facility use dose modulation, iterative reconstruction, and/or weight based d osing when appropriate to reduce radiation dose to as low as reasonably achievable (ALARA). [facility]: Dose Right [facility]: CareDose [facility]: Dose Right [facility]: Teradose 4D [facility]: [employer]angerine Power CONTRAST TYPE AND DOSE: contrast/concentration: Isovue 350.00 mmol/ml; Total Contrast Delivered: 100 .0 ml; Total Saline Delivered: 71.9 ml RENAL FUNCTION: BUN 36 creatinine 1.3 RADIATION DOSE: CT Rad equipment meets quality standard of care and radiation dose reduction techniq ues were employed. CTDIvol: 17.5 - 20.1 mGy. DLP: 2142 mGy-cm.. LIMITATIONS: None. FINDINGS: LOWER CHEST: No significant findings. LIVER: Normal size. No enhancing masses. No dilated ducts. SPLEEN: Normal size. No focal lesions. PANCREAS: No masses identified. No significant calcifications. No adjacent inflammation or peripancre atic fluid collections. Pancreatic duct not dilated. GALLBLADDER: Surgically absent. ADRENAL GLANDS: No significant masses. RIGHT KIDNEY AND URETER: No cysts identified. No solid masses identified. No calcified stones. No hyd ronephrosis or hydroureter. LEFT KIDNEY AND URETER: No cysts identified. No solid masses identified. No calcified stones. No hydr onephrosis or hydroureter. AORTA AND VESSELS: No aneurysm. No dissection. Renal arteries, SMA, celiac without significant stenos is. RETROPERITONEUM: No bulky retroperitoneal adenopathy. BOWEL AND PERITONEAL CAVITY: No obstruction or inflammatory changes. No free fluid. APPENDIX: Not visualized. PELVIS: Prior hysterectomy No free fluid. Unremarkable bladder. ABDOMINAL WALL: No masses. No hernias. BONES: No acute findings. The long segment thoracolumbar posterior fusion. OTHER: No other significant finding. IMPRESSION: NO ACUTE FINDINGS IN THE ABDOMEN OR PELVIS ON CT SCAN WITH IV CONTRAST. TECHNICAL DOCUMENTATION: JOB ID: [id number] Quality ID # [id number]: Final reports with documentation of one or more dose reduction techniques (e.g., Au tomated exposure control, adjustment of the mA and/or kV according to patient size, use of iterative reconstruction technique) 2010 [employer]- All Rights Reserved Reading location - IP/workstation name: [email or web address]
[2020-08-04] MEDS ORDERED: NORMAL SALINE 1000 ML 1,000 ML IV ONE (19:54)
[2020-08-04] MEDS ORDERED: METRONIDAZOLE 500 MG/NS RTU 500 MG/100 ML RTUPB IV ONE (19:54)
[2020-08-04] MEDS ORDERED: MAG HYDROX/AL HYDROX/SIMETH SUSP 30 ML UDCUP PO PRN (21:46)
[2020-08-04] MEDS ORDERED: MAGNESIUM HYDROXIDE SUSP 30 ML UDCUP PO PRN (21:46)
[2020-08-04] MEDS ORDERED: ACETAMINOPHEN 325 MG TABLET PO PRN (21:50)
[2020-08-04] MEDS ORDERED: HYDRALAZINE HCL INJ/PF 20 MG/1 ML SDV IV PRN (21:50)
[2020-08-04] MEDS ORDERED: METOPROLOL TARTRATE PF/INJ 5 MG/5 ML SDV IV PRN (21:50)
[2020-08-04] MEDS ORDERED: LORAZEPAM INJ 2 MG/1 ML VIAL IV PRN (21:50)
[2020-08-04] MEDS ORDERED: DEXTROSE 40% GEL 15 GM TUBE PO PRN ×2 (21:50)
[2020-08-04] MEDS ORDERED: GUAIFENESIN SYRP 200 MG/10 ML UDC PO PRN (21:50)
[2020-08-04] MEDS ORDERED: MELATONIN 5 MG TABLET PO PRN (21:50)
[2020-08-04] MEDS ORDERED: MORPHINE SULFATE 10 MG/ML INJ IV PRN ×3 (21:50→22:00)
[2020-08-04] MEDS ORDERED: GLUCAGON,HUMAN RECOMB 1 MG INJ IM PRN ×2 (21:50→22:00)
[2020-08-04] MEDS ORDERED: DEXTROSE 50%-WATER 25 GM/50 ML DISP.SYRIN IV PRN ×2 (21:50)
[2020-08-04] MEDS ORDERED: DEXTROSE 50%-WATER SYRINGE 12.5 GM/25 ML DOSE IV PRN (22:00)
[2020-08-04] MEDS ORDERED: DEXTROSE 50%-WATER SYRINGE 25 GM/50 ML DOSE IV PRN (22:00)
[2020-08-05] MEDS: FAMOTIDINE 20 MG TABLET PO SCH ×2 (01:47→09:38)
[2020-08-05] MEDS: INSULIN REG, HUMAN 100 UNIT/ML 3 ML VIAL (PYX) SUBCUT SCH ×4 (01:47→16:18)
[2020-08-05] MEDS: HEPARIN SOD (PORCINE) 5,000 UNIT/ML 1 ML VIAL SUBCUT SCH ×3 (01:47→14:46)
[2020-08-05] MEDS ORDERED: ROPINIROLE HCL 2 MG TABLET ONE (02:09)
[2020-08-05] MEDS: RINGERS SOLUTION,LACTATED 1,000 ML IV PRN ×2 (02:36→09:31)
--- NOTE | 2020-08-05 06:32 | PDOC H&P ---
History of Present Illness Admission Date/PCP: 08/04/2020 21:24 RICHI MEDRANO Patient complains of: Rectal bleeding History of Present Illness: ARIANNA DESOUZA is a 60 year old female who presented to the emergency room with a 3-day history of rectal bleeding. She admits initially having bright red blood on the paper when she wiped and over the course of the last 3 days has developed increased blood and today had an episode of loose stool with clotted blood. Her rectal bleeding has been accompanied by moderate left-sided abdominal cramping. She has a history of irritable bowel syndrome and diverticulitis diagnosed by previous colonoscopy. She denies prior similar episodes. She denies other associated or accompanying signs and symptoms. She has not identified any aggravating or ameliorating factors for her rectal bleeding. In the emergency room Past Medical History Cardiac Medical History: Reports: Hypertension Denies: Congestive Heart Failure, Coronary Artery Disease, Myocardial Infarction, Hyperlipidema Pulmonary Medical History: Reports: Sleep Apnea - Possible sleep apnea, but no formal testing as of yet. Denies: Asthma, Bronchitis, Chronic Obstructive Pulmonary Disease (COPD), Pneumonia EENT Medical History: Reports: Eyes - Corrective lenses Denies: Cataracts, Ears - Hearing aids Neurological Medical History: Denies: Hemorrhagic CVA, Ischemic CVA, Seizures Endocrine Medical History: Reports: Diabetes Mellitus Type 2 Denies: Diabetes Mellitus Type 1, Hyperthyroidism, Hypothyroidism Renal/ Medical History: Denies: Chronic Kidney Disease, Nephrolithiasis Malignancy Medical History: Reports: None GI Medical History: Reports: Diverticulitis, Other - Irritable bowel syndrome Denies: Cirrhosis, Gastroesophageal Reflux Disease, Hepatitis, Peptic Ulcer Disease Musculoskeltal Medical History: Reports: Arthritis, Other - Chronic pain Denies: Fibromyalgia Skin Medical History: Denies: Eczema, Psoriasis Psychiatric Medical History: Reports: Depression Denies: Alcohol Dependency, Substance Abuse, Tobacco Dependency Traumatic Medical History: Reports: None Hematology: Denies: Anemia, Bleeding Tendencies Infectious Medical History: Reports: None Past Surgical History Past Surgical History: Reports: Appendectomy, Cholecystectomy, Hysterectomy, Orthopedic Surgery - back x 15 times, keft knee, Tonsillectomy Social History Information Source: Patient Lives with: Family Smoking Status: Never Smoker Electronic Cigarette use?: No Frequency of Alcohol Use: None Hx Recreational Drug Use: No Drugs: None Hx Prescription Drug Abuse: No - Advance Directive Resuscitation Status: Full Code Surrogate healthcare decision maker:: Sara Desouza Family History Family History: CAD, Hypertension, Malignancy, Other - Parkinson's Parental Family History Reviewed: Yes Children Family History Reviewed: No Sibling(s) Family History Reviewed.: Yes Medication/Allergy Home Medications: Enalapril/Hydrochlorothiazide [Vaseretic 10-25 mg Tablet] 1 tab PO DAILY 01/14/17 Furosemide [Lasix] 20 mg PO DAILY 01/14/17 Omeprazole 40 mg PO DAILY 01/14/17 Tizanidine HCl [Zanaflex 4 mg Tablet] 4 mg PO QHS 01/14/17 Metformin HCl 1,000 mg PO BID 09/10/17 Fluoxetine HCl [Prozac] 60 mg PO DAILY 10/27/19 Albuterol Sulfate [Albuterol Sulfate Hfa] 2 puff IH Q6HP PRN 08/05/20 Buprenorphine HCl [Belbuca] 300 mcg BC Q12 08/05/20 Cetirizine HCl [Zyrtec 10 mg Tablet] 10 mg PO DAILY 08/05/20 Clotrimazole 1% Topical [Lotrimin 1% Topical Soln 10 ml] 2 drop AU BID 08/05/20 Doxepin HCl [Sinequan 25 mg Capsule] 50 mg PO QHS 08/05/20 Empagliflozin [Jardiance] 25 mg PO DAILY 08/05/20 Ergocalciferol (Vitamin D2) [Drisdol 50,000 unit (1.25MG) Capsule] 50,000 unit PO MO@1000 08/05/20 Gabapentin [Neurontin 400 mg Capsule] 800 mg PO Q8 08/05/20 Hydroxyzine HCl [Atarax 10 mg Tablet] 25 mg PO Q8HP PRN 08/05/20 Insulin Detemir [Levemir Insulin 100 units/mL Insulin Pen] 12 unit SUBCUT QHS 08/05/20 Lubiprostone [Amitiza 8 Mcg Capsule] 8 mcg PO BID 08/05/20 Montelukast Sodium [Singulair 10 mg Tablet] 10 mg PO QHS 08/05/20 Ropinirole HCl [Requip 2 mg Tablet] 2 mg PO Q12 08/05/20 Triamcinolone Acetonide [Aristocort 0.1% Cream] 1 applic TP BID 08/05/20 Allergies/Adverse Reactions: Cephalosporins Allergy (Verified 08/04/20 15:21) Hives ciprofloxacin [Ciprofloxacin] Allergy (Verified 08/04/20 15:21) clindamycin [Clindamycin] Allergy (Verified 08/04/20 15:21) Hives Penicillins Allergy (Verified 08/04/20 15:21) Hives pravastatin Allergy (Verified 08/04/20 15:21) Review of Systems Constitutional: ABSENT: chills, fever(s) Eyes: ABSENT: visual disturbances, other - Eye pain Ears: ABSENT: hearing changes, other - Ear pain Nose, Mouth, and Throat: ABSENT: headache(s), sore throat Cardiovascular: ABSENT: chest pain, palpitations Respiratory: ABSENT: cough, dyspnea Gastrointestinal: PRESENT: as per HPI, abdominal pain, hematochezia. ABSENT: constipation, diarrhea, melena, nausea, vomiting Genitourinary: ABSENT: dysuria, hematuria Musculoskeletal: PRESENT: back pain - Chronic. ABSENT: joint swelling, muscle weakness Integumentary: ABSENT: pruritus, rash Neurological: ABSENT: confusion, convulsions, focal weakness, memory loss, syncope Psychiatric: ABSENT: anxiety, depression Endocrine: ABSENT: cold intolerance, heat intolerance Hematologic/Lymphatic: ABSENT: easy bleeding, easy bruising Allergic/Immunologic: ABSENT: seasonal rhinorrhea Physical Exam Vital Signs: Temp Pulse Resp BP Pulse Ox 98.5 F 107 H 20 132/81 H 96 08/04/20 13:58 08/04/20 13:58 08/04/20 13:58 08/04/20 13:58 08/04/20 13:58 Intake & Output 08/02/20 08/03/20 08/04/20 23:59 23:59 23:59 Weight 105.9 kg General appearance: PRESENT: no acute distress, cooperative, obese Head exam: PRESENT: atraumatic, normocephalic Eye exam: PRESENT: conjunctiva pink. ABSENT: conjunctival injection, scleral icterus Ear exam: PRESENT: normal external ear exam. ABSENT: bleeding, drainage Mouth exam: PRESENT: dry mucosa, neck supple Neck exam: ABSENT: thyromegaly, tracheal deviation Respiratory exam: PRESENT: clear to auscultation destiney, symmetrical, unlabored Cardiovascular exam: PRESENT: RRR. ABSENT: clicks, gallop, rubs Pulses: PRESENT: normal radial pulses, normal dorsalis pedis pul Vascular exam: PRESENT: normal capillary refill. ABSENT: pallor GI/Abdominal exam: PRESENT: normal bowel sounds, soft, tenderness - Minimal t enderness in the left abdomen on palpation without localization Rectal exam: PRESENT: deferred Extremities exam: ABSENT: joint swelling, pedal edema Musculoskeletal exam: ABSENT: deformity, dislocation Neurological exam: PRESENT: alert, oriented to person, oriented to place, oriented to time, oriented to situation, CN II-XII grossly intact. ABSENT: motor sensory deficit Psychiatric exam: PRESENT: anxious, normal mood Skin exam: PRESENT: dry, intact, warm. ABSENT: jaundice, rash, urticaria Results Laboratory Results: 08/04/20 16:15 08/04/20 16:15 08/04/20 08/04/20 16:15 16:15 WBC 10.7 H RBC 4.85 Hgb 14.2 Hct 42.4 MCV 88 MCH 29.3 MCHC 33.5 RDW 13.4 Plt Count 224 Seg Neutrophils % 53.0 Sodium 137.7 Potassium 4.2 Chloride 97 L Carbon Dioxide 25 Anion Gap 16 BUN 36 H Creatinine 1.27 H Est GFR ( Amer) 52 L Glucose 224 H Calcium 10.6 H Total Bilirubin 0.6 AST 50 H Alkaline Phosphatase 74 Total Protein 7.9 Albumin 4.6 Impressions: Abdomen/Pelvis CT 08/04/20 15:38 IMPRESSION: NO ACUTE FINDINGS IN THE ABDOMEN OR PELVIS ON CT SCAN WITH IV CONTRAST. Assessment and Plan - Diagnosis (1) Hematochezia Is this a current diagnosis for this admission?: Yes (2) Abdominal cramping Is this a current diagnosis for this admission?: Yes (3) Obesity Qualifiers: Obesity type: due to excess calories Obesity classification: unspecified obesity classification Serious obesity comorbidity presence: with serious comorbidity Qualified Code(s): E66.09 - Other obesity due to excess calories Is this a current diagnosis for this admission?: Yes (4) Chronic pain Qualifiers: Chronic pain type: chronic pain syndrome Qualified Code(s): G89.4 - Chronic pain syndrome Is this a current diagnosis for this admission?: Yes (5) HTN (hypertension) Qualifiers: Hypertension type: essential hypertension Qualified Code(s): I10 - Essential (primary) hypertension Is this a current diagnosis for this admission?: Yes (6) Diabetes mellitus type 2 in obese Is this a current diagnosis for this admission?: Yes - Plan Summary Summary: ARIANNA DESOUZA is a 60 year old female with history of DMII, diverticulitis, and irritable bowel disease (constipation and diarrhea) who presented to the ED on 08/04/2020 with concerns regarding several day history of rectal bleeding with associated rectal pain following bowel movement, rectal discomfort and rectal fullness. She admits to bright red blood on toilet paper with wiping and on under-garments as well. She became worried when she found the toilet water to be red following a bowel movement, prompting her to present to the ED. She also reports abdominal discomfort, primarily across the pelvic region which she describes as "similar to menstrual cramps". She recieved a full workup in the ED including CT of the abdomen with no acute findings in the abdomen or pelvis with IV contrast. She was initially found to have slightly elevated WBC at (10.7 ) which resolved on repeat mornings labs with WBC of 7.6 prior to discharge. Her hemoglobin remained stable over hospitalization with Hgb 13.1 on discharge. She initially received antibiotic treatment due to clinical picture suspicious for diverticulitis. Upon further evaluation pt was found to have multiple external hemorrhoids, and indication of internal hemorrhoids, consistent with pt's rectal pain/discomfort and bleeding. In light of negative CT and labs antibiotic therapy was stopped. Pt was educated on management of both external and internal hemorrhoids and was discharged home with instruction on close follow up with PCP. Pt afebrile and hemodynamically stable at time of discharge. Pt expressed understanding and agreement with plan of care. - Time Time Spent with patient: Less than 15 minutes Medications reviewed and adjusted accordingly: Yes Anticipated Discharge Disposition: Home, Self Care Anticipated Discharge Timeframe: within 24 hours - Inpatient Certification Based on my medical assessment, after consideration of the patient's comorbidities, presenting symptoms, or acuity I expect that the services needed warrant INPATIENT care.: No I certify that my determination is in accordance with my understanding of Medicare's requirements for reasonable and necessary INPATIENT services [42 CFR 412.3e].: No
[2020-08-05 07:02] LABS: HEMATOCRIT 38.7 % (36.0-47.0); HEMOGLOBIN 13.1 g/dL (12.0-15.5); MEAN CORPUSCULAR HEMOGLOBIN 29.3 pg (27.0-33.4); MEAN CORPUSCULAR HGB CONC 33.8 g/dL (32.0-36.0); MEAN CORPUSCULAR VOLUME 87 fl (80-97); PLATELET COUNT 171 10^3/uL (150-450); RED BLOOD COUNT 4.47 10^6/uL (3.72-5.28); RED CELL DISTRIBUTION WIDTH 13.2 % (11.5-14.0); WHITE BLOOD COUNT 7.6 10^3/uL (4.0-10.5)
[2020-08-05 07:36] LABS: ANION GAP 11 (5-19); BLOOD UREA NITROGEN 30 mg/dL (7-20); CARBON DIOXIDE 27 mmol/L (22-30); CHLORIDE 99 mmol/L (98-107); GLUCOSE 178 mg/dL (75-110); POTASSIUM 4.2 mmol/L (3.6-5.0)
[2020-08-05] MEDS ORDERED: DOCUSATE SODIUM 100 MG CAPSULE PO SCH (10:00)
[2020-08-05] MEDS ORDERED: ROPINIROLE HCL 2 MG TABLET PO SCH (10:00)
[2020-08-05 17:44] VITALS: BP 138/63
--- NOTE | 2020-08-05 19:20 | PDOC DISCHARGE SUMMARY ---
Impression - Admit/DC Date/PCP Admission Date/Primary Care Provider: 08/04/20 21:43 RICHI MEDRANO Discharge Date: 08/05/20 - Discharge Diagnosis (1) External hemorrhoid, bleeding Is this a current diagnosis for this admission?: Yes (2) Hematochezia Is this a current diagnosis for this admission?: Yes (3) Abdominal cramping Is this a current diagnosis for this admission?: Yes (4) HTN (hypertension) Is this a current diagnosis for this admission?: Yes (5) Diabetes mellitus type 2 in obese Is this a current diagnosis for this admission?: Yes (6) Obesity Is this a current diagnosis for this admission?: Yes - Assessment Summary: ARIANNA DESOUZA is a 60 year old female with history of DMII, diverticulitis, and irritable bowel disease (constipation and diarrhea) who presented to the ED on 08/04/2020 with concerns regarding several day history of rectal bleeding with associated rectal pain following bowel movement, rectal discomfort and rectal fullness. She admits to bright red blood on toilet paper with wiping and on under-garments as well. She became worried when she found the toilet water to be red following a bowel movement, prompting her to present to the ED. She also reports abdominal discomfort, primarily across the pelvic region which she describes as "similar to menstrual cramps". She recieved a full workup in the ED including CT of the abdomen with no acute findings in the abdomen or pelvis with IV contrast. She was initially found to have slightly elevated WBC at (10.7) which resolved on repeat mornings labs with WBC of 7.6 prior to discharge. Her hemoglobin remained stable over hospitalization with Hgb 13.1 on discharge. She initially received antibiotic treatment due to clinical picture suspicious for diverticulitis. Upon further evaluation pt was found to have multiple external hemorrhoids, and indication of internal hemorrhoids, consistent with pt's rectal pain/discomfort and bleeding. In light of negative CT and labs antibiotic therapy was stopped. Pt was educated on management of both external and internal hemorrhoids and was discharged home with instruction on close follow up with PCP. Pt afebrile and hemodynamically stable at time of discharge. Pt expressed understanding and agreement with plan of care. - Additional Information Resuscitation Status: Full Code Discharge Diet: Cardiac, Diabetic Discharge Activity: Activity As Tolerated Referrals: SANTA STEPHENSON PA [Primary Care Provider] - Follow up as needed Home Medications: Enalapril/Hydrochlorothiazide [Vaseretic 10-25 mg Tablet] 1 tab PO DAILY 01/14/17 Furosemide [Lasix] 20 mg PO DAILY 01/14/17 Omeprazole 40 mg PO DAILY 01/14/17 Tizanidine HCl [Zanaflex 4 mg Tablet] 4 mg PO QHS 01/14/17 Metformin HCl 1,000 mg PO BID 09/10/17 Fluoxetine HCl [Prozac] 60 mg PO DAILY 10/27/19 Albuterol Sulfate [Albuterol Sulfate Hfa] 2 puff IH Q6HP PRN 08/05/20 Buprenorphine HCl [Belbuca] 300 mcg BC Q12 08/05/20 Cetirizine HCl [Zyrtec 10 mg Tablet] 10 mg PO DAILY 08/05/20 Clotrimazole 1% Topical [Lotrimin 1% Topical Soln 10 ml] 2 drop AU BID 08/05/20 Doxepin HCl [Sinequan 25 mg Capsule] 50 mg PO QHS 08/05/20 Empagliflozin [Jardiance] 25 mg PO DAILY 08/05/20 Ergocalciferol (Vitamin D2) [Drisdol 50,000 unit (1.25MG) Capsule] 50,000 unit PO MO@1000 08/05/20 Gabapentin [Neurontin 400 mg Capsule] 800 mg PO Q8 08/05/20 Hydroxyzine HCl [Atarax 10 mg Tablet] 25 mg PO Q8HP PRN 08/05/20 Insulin Detemir [Levemir Insulin 100 units/mL Insulin Pen] 12 unit SUBCUT QHS 08/05/20 Lubiprostone [Amitiza 8 Mcg Capsule] 8 mcg PO BID 08/05/20 Montelukast Sodium [Singulair 10 mg Tablet] 10 mg PO QHS 08/05/20 Ropinirole HCl [Requip 2 mg Tablet] 2 mg PO Q12 08/05/20 Triamcinolone Acetonide [Aristocort 0.1% Cream] 1 applic TP BID 08/05/20 History of Present Illiness History of Present Illness: Per HPI from 08/04/2020 "ARIANNA DESOUZA is a 60 year old female who presented to the emergency room with a 3-day history of rectal bleeding. She admits initially having bright red blood on the paper when she wiped and over the course of the last 3 days has developed increased blood and today had an episode of loose stool with clotted blood. Her rectal bleeding has been accompanied by moderate left-sided abdominal cramping. She has a history of irritable bowel syndrome and diverticulitis diagnosed by previous colonoscopy. She denies prior similar episodes. She denies other associated or accompanying signs and symptoms. She has not identified any aggravating or ameliorating factors for her rectal bleeding. In the emergency room" Physical Exam Vital Signs: Temp Pulse Resp BP Pulse Ox 98.0 F 75 19 126/57 H 100 08/05/20 11:01 08/05/20 11:01 08/05/20 11:01 08/05/20 11:01 08/05/20 11:01 Intake & Output 08/04/20 08/05/20 08/06/20 06:59 06:59 06:59 Intake Total 1360 1950 Balance 1360 1950 Weight 105.7 kg 107.3 kg General appearance: PRESENT: no acute distress, cooperative, obese, other - [place] Head exam: PRESENT: atraumatic, normocephalic Eye exam: PRESENT: conjunctiva pink, EOMI, PERRLA. ABSENT: scleral icterus Mouth exam: PRESENT: moist, tongue midline Neck exam: PRESENT: full ROM. ABSENT: lymphadenopathy, tenderness Respiratory exam: PRESENT: clear to auscultation destiney, unlabored. ABSENT: rales, rhonchi, tachypnea, wheezes Cardiovascular exam: PRESENT: RRR, +S1, +S2. ABSENT: diastolic murmur, systolic murmur Pulses: PRESENT: normal radial pulses Vascular exam: PRESENT: normal capillary refill GI/Abdominal exam: PRESENT: hernia, normal bowel sounds, soft, tenderness - diffuse mild tenderness, priamrily across the epigastric region. ABSENT: distended, firm Rectal exam: PRESENT: hemorrhoids - Multiple external hemorrhoids, without thrombosis., tenderness, other - Dusting of blood noted on pt's sanitary pad on her underwear. Evidence of blood around rectum. Extremities exam: PRESENT: full ROM. ABSENT: clubbing, pedal edema Musculoskeletal exam: PRESENT: ambulatory, full ROM. ABSENT: deformity, dislocation Neurological exam: PRESENT: alert, awake, oriented to person, oriented to place, oriented to time, oriented to situation, CN II-XII grossly intact. ABSENT: al tered, motor sensory deficit Psychiatric exam: PRESENT: appropriate affect, normal mood Skin exam: PRESENT: dry, intact, warm Results Laboratory Results: WBC 7.6 10^3/uL (4.0-10.5) 08/05/20 06:00 RBC 4.47 10^6/uL (3.72-5.28) 08/05/20 06:00 Hgb 13.1 g/dL (12.0-15.5) 08/05/20 06:00 Hct 38.7 % (36.0-47.0) 08/05/20 06:00 MCV 87 fl (80-97) 08/05/20 06:00 MCH 29.3 pg (27.0-33.4) 08/05/20 06:00 MCHC 33.8 g/dL (32.0-36.0) 08/05/20 06:00 RDW 13.2 % (11.5-14.0) 08/05/20 06:00 Plt Count 171 10^3/uL (150-450) 08/05/20 06:00 Lymph % (Auto) 37.4 % (13-45) 08/04/20 16:15 [place] % (Auto) 4.7 % (3-13) 08/04/20 16:15 Eos % (Auto) 3.7 % (0-6) 08/04/20 16:15 Baso % (Auto) 1.2 % (0-2) 08/04/20 16:15 Absolute Neuts (auto) 5.6 10^3/uL (1.7-8.2) 08/04/20 16:15 Absolute Lymphs (auto) 4.0 10^3/uL (0.5-4.7) 08/04/20 16:15 Absolute Monos (auto) 0.5 10^3/uL (0.1-1.4) 08/04/20 16:15 Absolute Eos (auto) 0.4 10^3/uL (0.0-0.6) 08/04/20 16:15 Absolute Basos (auto) 0.1 10^3/uL (0.0-0.2) 08/04/20 16:15 Seg Neutrophils % 53.0 % (42-78) 08/04/20 16:15 PT 13.0 SEC (11.4-15.4) 08/04/20 16:15 INR 0.96 08/04/20 16:15 APTT 24.9 SEC (23.5-35.8) 08/04/20 16:15 Sodium 137.3 mmol/L (137-145) 08/05/20 06:00 Potassium 4.2 mmol/L (3.6-5.0) 08/05/20 06:00 Chloride 99 mmol/L (98-107) 08/05/20 06:00 Carbon Dioxide 27 mmol/L (22-30) 08/05/20 06:00 Anion Gap 11 (5-19) 08/05/20 06:00 BUN 30 mg/dL (7-20) H 08/05/20 06:00 Creatinine 1.07 mg/dL (0.52-1.25) 08/05/20 06:00 Est GFR ( Amer) > 60 (>60) 08/05/20 06:00 Est GFR (MDRD) Non-Af 52 (>60) L 08/05/20 06:00 Glucose 178 mg/dL (75-110) H 08/05/20 06:00 POC Glucose 222 mg/dL (70-110) H 08/05/20 15:39 Hemoglobin A1c % 9.1 % (4.7-6.0) H 08/05/20 06:00 Calcium 10.0 mg/dL (8.4-10.2) 08/05/20 06:00 Magnesium 1.6 mg/dL (1.6-2.3) 08/05/20 06:00 Total Bilirubin 0.6 mg/dL (0.2-1.3) 08/04/20 16:15 Direct Bilirubin 0.4 mg/dL (0.0-0.4) 08/04/20 16:15 Neonat Total Bilirubin Not Reportable 08/04/20 16:15 Neonat Direct Bilirubin Not Reportable 08/04/20 16:15 Neonat Indirect Bili Not Reportable 08/04/20 16:15 AST 50 U/L (14-36) H 08/04/20 16:15 ALT 71 U/L (<35) H 10/14/20 16:15 Alkaline Phosphatase 74 U/L (38-126) 08/04/20 16:15 Total Protein 7.9 g/dL (6.3-8.2) 08/04/20 16:15 Albumin 4.6 g/dL (3.5-5.0) 08/04/20 16:15 Impressions: Abdomen/Pelvis CT 08/04/20 15:38 IMPRESSION: NO ACUTE FINDINGS IN THE ABDOMEN OR PELVIS ON CT SCAN WITH IV CONTRAST. Plan Health Concerns: Rectal bleeding - Hemorrhoids History of diverticulitis as noted on previous colonoscopy - pt states that she is due for colonoscopy; discussed importance of f/u with PCP Plan of Treatment: Hematochezia Rectal bleeding and discomfort consistent with external/internal hemorrhoids. Multiple external hemorrhoids noted on physical exam, none of which were thrombosed. She does have history of irritable bowel disease with frequent constipation. Recommended treatment with preparation H ointment and wipes. Instructed her on proper use. High suspicion for internal hemorrhoids. Recommend follow up with PCP within one week for further evaluation/discussion regarding treatment options including band ligation. Pt hemodynamically stable at time of discharge with stable hemoglobin of 13.1. She is to report to medical services in the event she experiences increased bleeding, including the passing of large amounts of blood in stool, or lightheadedness. Abdominal cramping Etiology unknown. DDX including: typical IBD, diverticulitis, diverticulosis Ct abdomen without evidence of inflammation, irritation or diverticula. On exam she diffusely tender to palpation, primarily in the area of lower abdomen/pelvic region. She describes pain as a "pressure"/cramp which she feel stems from her rectal pain. Pt does report hx of diverticulitis, as noted on previous colonoscopy, but denies current symptoms similar to those in the past. Hemodynamically stable and afebrile entire course of evaluation with WBC 7.6 on discharge. At this time I did not feel antibiotics were necessary as her clinical presentation and abdominal imaging were less indicative of diverticular flair and more consistent with typical IBD symptoms. She is to report to medical services in the event she experiences fever, increased abdominal pain, nausea, vomiting, bloating or increase in symptom severity. Time Spent: Greater than 30 Minutes Stroke Is this a Stroke Patient?: No Acute Heart Failure Is this a Heart Failure Patient?: No
--- NOTE | 2020-08-05 19:36 | Progress Note ---
Provider Note Provider Note: Following pt's disposition from the hospital I was contacted regarding a positive blood culture result from 08/04/20. Preliminary blood culture was found to be positive for staphylococcus Aureus. Blood cultures from 08/05/2020 pending. Pt was then contact by me at her home phone number. Discussed the results with the patient in detail and she expressed understanding. Upon questioning pt denies fever, chills, anorexia, nausea, vomiting, trouble breathing, confusion, change in mental status, or rash. On exam prior to discharge pt was found to be afebrile and hemodynamically stable. Vital signs remained stable entire course of hospitalization. At this time I suspect positive blood cultures are secondary to contamination as pt's clinical presentation, physical exam findings and laboratory findings are inconsistent with bacteremia. Pt was informed that second blood cultures were pending and that I plan to contact her when results are received. Pt was given the option of returning to the hospital now vs waiting for pending results. Pt chose to wait for pending results and stated that she plans to follow up with her PCP in the morning. Pt is to immediately return to the ED if she experiences fever, chills, anorexia, nasuea, vomiting, trouble breathing, change in mental status or rash. She expresses understanding. I will follow up with the patient tomorrow via phone call.
[2020-08-06] MEDS ORDERED: INFLUENZA QUAD (6MOS+) 2020-21 VAC 0.5 ML SYR IM ONE (08:00)
--- NOTE | 2020-08-06 15:15 | Progress Note ---
Provider Note Provider Note: This is a follow-up note regarding provider note on 08/05/2020. Blood culture from 08/05/2020 resulted today with no growth in 24 hours. Patient was contacted regarding results. She again denies any fever, chills, loss of appetite, nausea, vomiting, difficulty breathing, fast heart rate, feeling lightheaded, confusion, rash. This further supports my initial suspicion that positive blood culture from 08/04/2020 is secondary to contaminant. Patient states that she does have a scheduled follow-up appointment with her primary care provider next Sunday (08/10/2020). Of note, she has not experienced rectal bleeding since disposition from hospital yesterday.
--- NOTE | 2020-08-08 08:14 | Progress Note ---
Provider Note Provider Note: 08/08/2020 Post discharge note Contacted by microbiology regarding positive blood culture Blood culture grew staph aureus. It was only 1 bottle of 4. After review I feel this is clinically insignificant No further treatment required
== END 2020-08-05 17:57 | disposition home or self-care (01) ==
LOC: ER 13:53 → EH 21:43 → 4S 08-05 00:38
PROVIDERS: ADMIT Emergency Medicine; ATTEND Hospitalist
DX: K64.4 Residual hemorrhoidal skin tags (principal); K92.1 Melena; R10.12 Left upper quadrant pain; I10 Essential (primary) hypertension; E11.69 Type 2 diabetes mellitus with other specified complication; E66.09 Other obesity due to excess calories; Z68.39 Body mass index [BMI] 39.0-39.9, adult; B95.7 Other staphylococcus as the cause of diseases classified elsewhere; G89.4 Chronic pain syndrome; R19.7 Diarrhea, unspecified; Z88.0 Allergy status to penicillin; Z88.1 Allergy status to other antibiotic agents; Z88.8 Allergy status to other drugs, medicaments and biological substances; Z79.4 Long term (current) use of insulin; Z79.899 Other long term (current) drug therapy
CPT/HCPCS: 99285; 96365; 36415 ×2; 87040 ×2; 82962; 83735; 85025; 85027; 85610; 85730; 87077; 80048; 80053; 87186; 83036; 87150 ×26; 74177; G0378 ×3; J1644; A9270 ×4; J3490 ×2; J2270; J7030; J7120; J1815